=== PATIENT | female | born 1970 | race Caucasian/White ===

== ENCOUNTER → 2018-12-18 | Outpatient (CLI) | payer BC, SELFPAY ==
[2018-12-25 17:58] LABS: HPV Reflexed? NOT INDICATED
== END | disposition home or self-care (01) ==
LOC: LABSPEC 08:48
PROVIDERS: Family Provider Family Medicine; PCP Family Medicine; Visit Provider Obstetrics & Gynecology
DX: Z12.4 Encounter for screening for malignant neoplasm of cervix (principal)
CPT/HCPCS: 87624; 88175; G0145

== ENCOUNTER 2019-02-10 05:21 | Day surgery (SDC) | payer BC, SELFPAY ==
--- NOTE | 2019-02-06 10:46 | EKG12_ITS ---
Test Reason : PRE OP Blood Pressure : / mmHG Vent. Rate : 071 BPM Atrial Rate : 071 BPM P-R Int : 138 ms QRS Dur : 088 ms QT Int : 388 ms P-R-T Axes : 030 -31 006 degrees QTc Int : 421 ms Normal sinus rhythm Left axis deviation Voltage criteria for left ventricular hypertrophy Abnormal ECG No previous ECGs available Confirmed by EDUAR REDMAN, ENRIQUE ([id number]), assistant editor CK CHAVEZ ([id number]) on 02/10/2019 1:28:48 PM Referred By: Rico Sierra Confirmed By:ENRIQUE WITT MD
[2019-02-06 11:00] LABS: Prothrombin Time (Protime)PT. 12.7 SECONDS (11.7-14.9)
[2019-02-06 11:01] LABS: Partial Thromboplast Time 28.4 Seconds (24.1-36.2)
[2019-02-06 11:21] LABS: Anion Gap 6 (5-15); BUN 9 mg/dL (7-18); BUN/Creat Ratio 10.4 RATIO (10-20); Chloride 111 mmol/L (98-107); Creatinine, Serum 0.87 mg/dL (0.55-1.02); EST Glomerular Filtration Rate 73 mL/min (>60); Est Glom Filt Rate - Afr Amer 89 mL/min (>60); Glucose 93 mg/dL (74-106); Potassium 3.7 mmol/L (3.5-5.1); Sodium Level 140 mmol/L (136-145)
[2019-02-06 14:27] LABS: Hematocrit 30.1 % (37-47); Hemoglobin 8.6 g/dL (12.0-15.0); Mean Corp Hgb Conc 28.6 g/dL (32-36); Mean Corpuscular Hgb 21.3 pg (27.0-32.0); Mean Corpuscular Volume 74.5 fL (81-99); Mean Platelet Vol. 9.4 fl (6.2-12.0); Platelet Count 328 K/mm3 (150-450); RBC Distribution Width SD 48.4 fl (35.1-43.9); Red Blood Count 4.04 M/mm3 (4.2-5.4); Scan Indicated on CBC? Y/N NO; White Blood Count 5.5 K/mm3 (4.4-11.0)
--- NOTE | 2019-02-08 19:40 | HP.PCM_ITS ---
History and Physical Date of Admission: 02/10/19 Surgical History and Physical Jacquelyn Duran, a 48 year old female 2 0 0 0 2, presents for RAVH/BSO on February 10, 2019 at 7:30. -- Blood Loss Anemia, Fibroids, Menorrhagia -- Regular heavy menses with the second day being extremely heavy to the point that she often cannot leave the house, and bleeds through everything. Denies any intermenstrual bleeding. Recent Hgb 8.6. Fibroids noted on u/s for many years and bleeding now getting much worse. Recent u/s showed UTERUS: 13.6 X 9.3 X 11.9 CM. MULTIPLE FIBROIDS-LARGEST 3.6 CM. Submucous and multiple fibroids seen in uterus. MEDICATIONS HISTORY: ALLERGIES: No Known Allergies Infections - Chicken pox Illnesses - no serious past illnesses Accidents - None Hospitalizations - see surgery Review of Systems: GENERAL - Denies fever, or chills SKIN - Denies skin changes EYES - Denies visual changes EARS - Denies difficulty hearing NOSE - Denies nasal congestion or bleeding MOUTH - Denies sore throat or difficulty swallowing NECK - Denies pain or swelling RESPIRATORY - Denies shortness of breath or wheezing CARDIOVASCULAR - Denies palpitations or chest pain GASTROINTESTINAL - Denies nausea, vomiting, diarrhea, constipation GENITOURINARY - Denies dysuria, frequency of urination, incontinence of urine MUSCULOSKELETAL - Denies joint or muscle pain NEUROLOGICAL - Denies localized numbness or weakness PSYCHIATRIC - Denies depression or anxiety ENDOCRINE - Denies heat or cold intolerance, weight loss or gain HEMATO-IMMUNOLOGIC - Denies excessive bleeding with cuts SOCIAL HISTORY: Alcohol Use - occasionally Smoking - Never Diet - no special diet Lifestyle - moderate stress lifestyle and Exercise - active work Seat Belt Use - always Employer - [employer] Job Description - [employer] Illicit Drug Use - None Sexual Activity - Spouse-Sig Other Name - Rico Duran Spouse-Sig Other Occupation - [employer] Children Name(s) - Beverley Altamirano Control - Prior Tubal FAMILY HISTORY: MENSTRUAL HISTORY: LMP Known?- DefiniteAmount/Duration - 4-5 DAYS, Regularity - Regular, Frequency - monthly days, LMP - 01/16/19, Age Onset Menarche - 11 PAST PREGNANCIES: Total Pregnancies - 2; Full Term Pregnancies - 2; Premature - 0; Abortions, Induced - 0; Abortions, Spontaneous - 0; Ectopics - 0; Multiple Births - 0; Living Children - 2 SURGICAL HISTORY: 1. 05/26/1998 ; Dr. Guerrier 2. 09/11/2002 and Tubal ; DR. RUBALCAVA 3. 1994 Dx. Lap x 3 over several years ; Dr. Guerrier PHYSICAL EXAM BP- 136/82 Sitting, Right arm, regular cuff Weight- 187.0 lbs Height- 65 inch BMI:31.18 CONSTITUTIONAL - NAD, well nourished, and well developed SKIN - No rash, lesions, or ulcers HEENT - Normocephalic, PERRLA, EOMI NECK - No nodes, no nuchal rigidity and thyroid normal size and texture LYMPH NODES - Palpation of lymph nodes in neck and groins within normal limits LUNGS - CTA x2 without wheezes, crackles or rales CARDIAC - Regular rate and rhythm without rubs, murmurs, or gallops BREAST - No dominant masses, no tenderness, no axillary adenopathy, no nipple discharge, no skin changes ABDOMEN - Without hepatosplenomegaly, distention, masses, rebound, or guarding; normal bowel sounds; no hernias EXTREMITIES - No edema or calf tenderness NEUROLOGICAL - Cranial nerves II-XII grossly intact PSYCHIATRIC - A and O to time, place, person, mood and affect External Genitial Vagina - non-tender without lesions Urethra/Urethral Meatus - non-tender Bladder - non-tender Vagina - vaginal [place] are pink and moist without loss of rugae and no evidence of atropy Cervix - without cervical motion tenderness and has normal size and features without evident lesions Uterus - enlarged uterus 8 wks, wt 125-150 g Adnexa - clear without masses or tenderness ASSESSMENT/PLAN: Blood Loss Anemia, Menorrhagia and Submucous Leiomyoma Of Uterus Discussed options for treatment including expectant management, IUD, Ablation, or proceeding with hysterectomy. Pt desires the hysterectomy as this affords the best possibility of completely fixing the problem. Plan RAVH/BSO. Discussed RBAs and all questions answered. Anesthesia to give 1 unit P-RBC for anemia prior to surgery.
[2019-02-10] VITALS (11 sets, daily range): BP systolic 111–156; BP diastolic 62–83; PULSE 61–80; RESP 16–18; TEMP 36.2–37.1; O2SAT 94–100; BMI 31.6
[2019-02-10 05:48] LABS: Internal QC Validated? YES +Cl - CLEAR BKGD; Pregnancy, Urine Negative Negative
[2019-02-10] MEDS: Lactated Ringers 1,000 ML 100 ML IV (06:43)
--- NOTE | 2019-02-10 07:30 | HYST_PTH ---
PATIENT: WILFRIDO HUDDLESTON [place] [facility] [place][id number] AGE/SX: 48/F ROOM: RE02/10/[address]: Dr. Rico Sierra MD : 1970 BED: DIS: 02/11/2019 SPEC #: [id number] RECD: 02/10/19 13:38 STATUS: RUBY BHARDWAJ #: [id number] MARCELLA: 02/10/19 07:[address]: Rico Sierra DEPT: SURGICAL PATHOLOGY RECD BY: Carlos Miller ENTERED: 02/10/19 13:54 SP TYPE: HYSTERECT OTHR DR: Dr. Dom Cm MD Tissues: Uterus, NOS Procedures: Surgery Specimen Level V HEADER OPERATION: Robotic assisted vaginal hysterectomy, bilateral salpingo-oop PRE-OP DIAGNOSIS: Blood loss anemia, menorrhagia, fibroids TISSUE SUBMITTED: Uterus, cervix, bilateral fallopian tubes, bilateral ovaries MICROSCOPIC DIAGNOSIS Uterus, hysterectomy: Cervix - nabothian cysts and mild chronic inflammation. Endometrium - secretory endometrium. Myometrium - leiomyoma and adenomyosis. Fallopian tube segments with benign peritubular cysts. Ovaries with corpus luteal cysts. DANO:clarisa 02/11/19 MICROSCOPIC DESCRIPTION Slides are reviewed. GROSS DESCRIPTION Received in fixative is one container labeled with the patient's name and designated uterus, cervix, bilateral fallopian tubes and bilateral ovaries. The specimen consists of a hysterectomy specimen in multiple pieces. The largest piece of specimen is consisting of portion of uterus with cervix and attached one fallopian tube and ovary. The detached piece of tissues appears to consist of uterus. The uterus with cervix and detached pieces weigh in aggregate 427 gm. The largest piece of uterus with attached cervix measures 14 x 11 x 8.5 cm. The serosal surface appears unremarkable. The ectocervical is disrupted. No well-defined external os is noted. The specimens cannot be oriented due to disrupted nature of the specimen. A portion of the endocervical canal measures 3 cm in length. The endocervical mucosa is unremarkable. The endometrial cavity measures 6 cm in length and up to 2 cm in diameter. The endometrium is pink red and appears to be disrupted and measures 0.1 cm in thickness. Section of the uterine wall revealed multiple nodule. The largest nodule measures 3.5 cm in greatest dimension. An ill-defined nodule is also noted. Sections of these mass(es) reveal staples whorled cut surfaces without areas of hemorrhage, necrosis or cystic degeneration. The detached pieces of uterus measures in aggregate 9 x 8 x 3.5 cm. The largest piece shows a nodule measuring 5 cm in greatest dimension. Sections of these mass(es) reveal staples whorled cut surfaces without areas of hemorrhage, necrosis or cystic degeneration. The smaller also has 2 smaller nodules. Uninvolved portion of the uterine wall measures up to 4 cm in thickness. The attached fallopian tube measures 7 cm in length and 0.6 cm in diameter. Fimbrial end is identified. Proximal end of the fallopian tube shows a Filshie clip which appears intact. Soft and cystic ovary measures 3.5 x 2 x 1.5 cm. Sections reveal a few cysts filled with clear to hemorrhagic fluid. The largest cyst measures 0.5 cm in greatest dimension. Also present in the container is a detached second fallopian tube measuring in 5 cm in length and 1 cm in diameter. The fimbrial end is identified. The proximal end shows a Filshie clip which appears intact. Sections reveal unremarkable cut surfaces. Also present in the container are multiple detached pieces of pink-red soft tissue which may represent second ovary piece and measure in aggregate 4 x 2 x 0.5 cm. One of the pieces appears to be consistent with corpus luteum. Paint Line Production Supervisor sections are submitted in 14 cassettes as follows: 1&2 - cervix, 3-6 - uterine wall including endometrium, 7 - ill-defined nodular mass; 8 - largest mass present in the detached piece of tissue; 9 - intermediate sized nodular mass; 10 - smaller nodular masses; 11 - attached fallopian tube; 12 - attached ovary; 13&14 - detached pieces of tissue, possible second ovarian tissue, entirely submitted; 15 - second fallopian tube. /MIKE:clarisa 02/10/19 TC:1 CPT: 86167
--- NOTE | 2019-02-10 07:41 | PCM.OPRPT ---
Report of Operation Date of Procedure: 02/10/19 Pre-Operative Diagnosis: Blood Loss Anemia, Menorrhagia, Fibroids Post-Operative Diagnosis: Blood Loss Anemia, Menorrhagia, Fibroids, Adhesions Surgery/Procedure Performed:: Robotic Assisted Vaginal Hysterectomy and Bilateral Salpingo-Oophorectomy, Lysis of Adhesions Description of Surgical Findings:: 13 cm fibroid uterus with normal-appearing fallopian tubes and ovaries; right tube and ovary densely adhered to the right pelvic sidewall. Evidence of endometriosis. legal operations manager: Chau Ivory Type of Anesthesia:: General - Endotracheal Anesthesiologist: Elisa Mei Specimen's removed: Uterus with bilateral fallopian tubes and ovaries Drains: Kirk to straight drain Estimated Blood Loss (mL): 100 cc Fluids Replaced: Crystalloid Description of Procedure: Surgeon: Rico Sierra MD, FACOG Indication: This is a 48 year old patient who has been having problems with blood loss anemia and menorrhagia. Conservative measures have not been helpful. The patient has been counseled regarding the risks, benefits and alternatives of this procedure including the possibility of bleeding, infection, and injury to surrounding structures such as bowel bladder and all questions were answered. She understands that if BSO is needed that she may need to be on HRT for an indefinite period of time. Procedure: Pt taken to the operating room where, after induction of general anesthesia, the patient was prepped and draped in the usual sterile fashion and placed on a non-slip Huggy-u-vac device. Trendelenburg test was satisfactory. Bladder was drained of urine with a Kirk catheter which was left in place. Anterior cervix grasped and cervix was dilated to about 3-4 mm. Uterus sounded to 12 cms. 0-Vicryl suture was placed at the 3:00 and 9:00 position of the cervix. A small Advincula Etl Application Developer Uterine Manipulator was then placed in the uterus and attention was turned to the laparoscopic portion of the procedure. Ropivocaine 0.5% was injected approximately 3-4 cm superior to the umbilicus and an 8 mm robotic camera port was introduced directly with intraperitoneal placement confirmed with CO2 insufflation. 8 mm robotic side ports were introduced under direct visualization approximately 10 cm lateral and 2 cm inferior to the umbilical port. A 5 mm left upper quadrant port was introduced and airseal insufflation with CO2 was started. The above findings were noted. Robot was docked without difficulty and attention turned to the robotic portion of the procedure. Approximately 30 cc of Ropivicaine was used. Bilateral infundibulopelvic ligaments and mesosalpinx were ligated with 35 byrd bipolar coagulation to the level of the round ligament. The posterior aspect of the cervix was identified and then opened for about 1 cm using 25 watt monopolar cautery. Bladder flap was opened and divided to the level of the round ligaments using monopolar cautery. Progressive bites were then ligated on each side of the cervix with 35 byrd bipolar cautery to the uterine arteries. The anterior vaginal mucosa was entered and cervix circumscribed with monopolar cautery. Uterus and attached tubes and ovaries were removed through the vagina after morcellating some of the uterus to allow passage. Some of the right fallopian tube and ovary remained and this was ligated with bipolar cautery and sharp dissection and removed through the vagina. Vaginal cuff was closed first with 0-Vicryl Keesha stitches placed at each angle followed by closure of the mid-cuff with 0-Monocryl V-lock suture in two layers. Pelvis was copiously irrigated with saline and the right ureter was noted to peristalse. Surgicel snow was placed across the vaginal cuff to help with postoperative hemostasis. The vaginal introitus was examined and no disruption was noted. Urine was clear. Robot was undocked and trocars were removed with as much gas as possible. Incisions were closed with 4-0 Monocryl subcuticular sutures and incisions covered with steri-strips. The patient tolerated the procedure well and was taken to the recovery room in satisfactory condition. Sponge, instruments and needle counts were all correct. There were no apparent complications of the surgery. Cefotan 2 gms IV was given prior to the procedure. Specimen to Pathology: Uterus and bilateral fallopian tubes and ovaries Grafts/Implants Used: None - Complications None - Admit VTE Documentation VTE Present on Admission: Yes VTE Mechan Device Prophylaxis: SCD's VTE Pharm Prophylaxis ordered?: Yes
--- NOTE | 2019-02-10 07:49 | DCINST_ITS ---
Discharge Diet: No Restrictions Discharge Activity: Return to Normal Activity, May Not Drive - while taking narcotic pain medications., May Shower May resume sexual activity in: 6-8 weeks Call your doctor if your incision/area has: Continuous Slow Oozing, Sudden Increased Bleeding, Increased Pain/ Swelling, Increased Redness, Foul Smelling Discharge Call your doctor if you observe: Fever of 101 or Higher, Inability to urinate, Inability to have a bowel movement, Using more than one pad per hour Allergies/Adverse Reactions: Allergies No Known Allergies Allergy (Verified 02/03/19 11:04) Medications to take at Discharge Docusate Sodium [Colace] 100 mg PO BID PRN PRN #60 cap 02/10/19 Oxycodone [Oxyir] 5 mg PO Q6H PRN PRN 7 Days #20 tab 02/10/19 The following prescriptions were given: Docusate Sodium [Colace] 100 mg PO BID PRN PRN #60 cap PRN Reason: Constipation Prescription Printed Oxycodone [Oxyir] 5 mg PO Q6H PRN PRN 7 Days #20 tab PRN Reason: Severe Pain (-03/27) Prescription Printed Primary Care Physician: Dom Cm [Primary Care Provider] - Test Results: Test results from this visit will be discussed in further detail at your follow- up appointment, if applicable. Please Follow Up With: Rico Sierra MD When: 2 to 3 weeks
[2019-02-10] MEDS: Ropivacaine 0.5% 30 ML Vial (08:15)
[2019-02-10] MEDS: Ketorolac 30 MG/ML Syringe IV ×3 (11:36→22:25)
[2019-02-10] MEDS: Dextrose 5%-Lactated Ringers 1,000 ML 150 ML IV ×2 (12:31→18:58)
[2019-02-10] MEDS: Acetaminophen 500 MG Tablet 1000 MG PO (13:46)
[2019-02-10] MEDS: Docusate Sodium 100 MG Capsule PO (14:47)
[2019-02-10] MEDS: oxyCODONE 5 MG Tablet PO (14:47)
[2019-02-10] MEDS: 0.9% NaCl Peripheral Flush Adult/Peds IV ×2 (16:26→18:16)
[2019-02-10] MEDS: Enoxaparin 30 MG/0.3 ML Syringe SC (18:16)
[2019-02-10] MEDS: HYDROmorphone 1 MG/ML Syringe 0.5 MG IV (18:16)
[2019-02-11] MEDS: oxyCODONE 5 MG Tablet PO ×2 (01:20→07:55)
[2019-02-11] MEDS: Dextrose 5%-Lactated Ringers 1,000 ML 150 ML IV (01:22)
[2019-02-11 02:00] VITALS: BP 135/68; PULSE 67; RESP 18; TEMP 36.8; O2SAT 96
[2019-02-11] MEDS: Ketorolac 30 MG/ML Syringe IV ×2 (04:47→10:19)
[2019-02-11] MEDS: HYDROmorphone 1 MG/ML Syringe 0.5 MG IV (04:47)
--- NOTE | 2019-02-11 06:52 | PCM.PN.OB ---
Subjective: Patient without complaints. Tolerating diet well. Minimal vaginal bleeding. Pain well controlled. - Physical Exam Vital Signs Temp Pulse Resp BP Pulse Ox 98.2 F 67 18 135/68 H 96 02/11/19 02:00 02/11/19 02:00 02/11/19 02:00 02/11/19 02:00 02/11/19 02:00 Oxygen Delivery Method Room Air Weight: 190 lb 0.615 oz Body Mass Index (BMI) 31.6 Intake and Output for Last 24 Hours 02/09/19 02/10/19 02/11/19 23:59 23:59 23:59 Intake Total 4405.0 / 4405.0 885 / 885 Output Total 2300 / 2300 Balance 2105.0 / 2105.0 885 / 885 Laboratory Tests Past 24 Hrs 02/06/19 02/11/19 02/11/19 10:39 06:10 06:10 WBC Pending RBC Pending Hgb Pending Hct Pending MCV Pending MCH Pending MCHC Pending RDW Std Deviation Pending RDW Coeff of Drake Pending Plt Count Pending Creatinine Pending Est GFR (MDRD) Af Amer Pending Est GFR (MDRD) Non-Af Pending Blood Type O NEGATIVE Antibody Screen NEGATIVE Crossmatch See Detail Wounds are clean, dry, intact. Good urine output. Hemoglobin and creatinine pending. Medical Necessity - Tobacco Use Smoking Status: Never smoker Tobacco Use: Non-smoker Assessment/Plan Doing well postoperative day #1 status post robotic assisted vaginal hysterectomy and bilateral salpingo-nephrectomy. Will release to home later today when able to void on own.
[2019-02-11 06:53] LABS: Hematocrit 25.3 % (37-47); Hemoglobin 7.5 g/dL (12.0-15.0); Mean Corp Hgb Conc 29.6 g/dL (32-36); Mean Corpuscular Hgb 22.5 pg (27.0-32.0); Mean Corpuscular Volume 75.7 fL (81-99); Mean Platelet Vol. 9.7 fl (6.2-12.0); Platelet Count 263 K/mm3 (150-450); RBC Distribution Width CV 18.2 % (11.6-14.6); RBC Distribution Width SD 49.8 fl (35.1-43.9); Red Blood Count 3.34 M/mm3 (4.2-5.4); White Blood Count 9.4 K/mm3 (4.4-11.0)
[2019-02-11 07:00] LABS: Creatinine, Serum 0.95 mg/dL (0.55-1.02); EST Glomerular Filtration Rate 66 mL/min (>60); Est Glom Filt Rate - Afr Amer 80 mL/min (>60); Estimated Creatinine Clearance 63.75 ml/min
[2019-02-11 07:48] VITALS: BP 126/78; PULSE 70; RESP 18; TEMP 37.5; O2SAT 100
[2019-02-11 09:24] VITALS: O2SAT 97
[2019-02-11] MEDS: 0.9% NaCl Peripheral Flush Adult/Peds IV (10:20)
[2019-02-11 14:00] VITALS: BP 135/78; PULSE 68; RESP 18; TEMP 36.7; O2SAT 99
[2019-02-11 14:20] VITALS: BP 135/78; PULSE 68; RESP 18; TEMP 36.7; O2SAT 99
== END 2019-02-11 14:20 | disposition home or self-care (01) ==
LOC: SDC 05:21 → AC 05:22 → MS3 06:27
PROVIDERS: Anesthesiology; Family Provider Family Medicine; PCP Family Medicine; Referring Provider Obstetrics & Gynecology; Visit Provider Obstetrics & Gynecology
PROC: 0UT90ZZ Resection of Uterus, Open Approach (ICD-10-PCS; CPT 58554; principal; 2019-02-10 07:10)
DX: D25.0 Submucous leiomyoma of uterus (principal); N88.8 Other specified noninflammatory disorders of cervix uteri; N83.8 Other noninflammatory disorders of ovary, fallopian tube and broad ligament; N83.12 Corpus luteum cyst of left ovary; N83.11 Corpus luteum cyst of right ovary; D50.0 Iron deficiency anemia secondary to blood loss (chronic)
CPT/HCPCS: 00840; 58554; S2900; 36415; 80048; 81025; 82565; 85027; 85610; 85730; 86850; 86900; 86901; 86920; 88307; 93005; J7120; P9016; A4216; J2405

== ENCOUNTER → 2020-04-23 | Outpatient (CLI) | payer BC, SELFPAY ==
[2019-02-10 12:14] VITALS: BMI 31.6
--- NOTE | 2020-04-23 08:58 | COLBX_PTH ---
PATIENT: WIFLRIDO HUDDLESTON LOC: [facility]#:[id number] AGE/SX: 49/F ROOM: RE04/23/[address]: Dr. Dion Tong MD : 1970 BED: DIS: 04/23/2020 SPEC #: [id number] RECD: 04/23/20 15:03 STATUS: RUBY BHARDWAJ #: [id number] MARCELLA: 04/23/20 08:[address]: Dion Tong DEPT: SURGICAL PATHOLOGY RECD BY: Gloria Dominguez ENTERED: 04/26/20 08:25 SP TYPE: COLON BX JHONY DR: Dr. Dom Cm MD [facility] Tissues: COLON BIOPSY Procedures: Trichrome (control) Special Stain Group II Surgery Specimen Level IV HEADER OPERATION: Colonoscopy with biopsies PRE-OP DIAGNOSIS: Screening / diarrhea TISSUE SUBMITTED: Right and left colon biopsies, rule out microscopic colitis MICROSCOPIC DIAGNOSIS Right and left colon, biopsy: Fragments of colonic mucosa with changes suspicious for microscopic/lymphocytic colitis. See comment. MIKE:ilir 04/27/20 COMMENT Mild increase of intraepithelial lymphocytes is noted. Trichrome stain with matched control is used in the evaluation of the specimen and does not show significant thickening of subepithelial collagen band. Correlation with clinical, endoscopic findings and appropriate follow up are necessary. MICROSCOPIC DESCRIPTION Slides are reviewed. GROSS DESCRIPTION Received in fixative is one container labeled with the patient's name and designated right and left colon biopsy. The specimen consists of multiple irregular fragments of light staples soft tissue that in aggregate measure 1.5 x 0.7 x 0.1 cm. The specimen is totally submitted in one cassette. / MIKE:ilir 04/26/20 TC:3 CPT: 12095, 48612
== END | disposition home or self-care (01) ==
LOC: LABSPEC 15:21
PROVIDERS: PCP Family Medicine; Referring Provider Internal Medicine Gastroenterology; Visit Provider Internal Medicine Gastroenterology
DX: Z13.9 Encounter for screening, unspecified (principal); R19.7 Diarrhea, unspecified
CPT/HCPCS: 88305; 88313

== ENCOUNTER → 2021-02-01 14:51 | Outpatient (CLI) | payer BC, SELFPAY ==
[2021-02-01 05:36] VITALS: BMI 31.6
[2021-02-01 15:05] LABS: Absolute Lymphocyte Count 2.79 X10^3/uL (0.83-4.51); Basophil# 0.11 X10^3/uL; Basophil% 1.2 % (0-1); Eosinophil# 0.44 X10^3/uL; Eosinophils% 4.9 % (0-5); Hematocrit 44.2 % (37-47); Hemoglobin 14.6 g/dL (12.0-15.0); Lymphocyte # 2.79 X10^3/ul (0.83-4.51); Lymphocyte % 30.8 % (19-41); Mean Corpuscular Volume 93.8 fL (81-99); Mean Platelet Vol. 9.1 fl (6.2-12.0); Monocyte# 0.66 X10^3/uL; Monocyte% 7.3 % (0-10); NRBC Flagged by Analyzer 0 % (0-5); Neutrophil # 5.03 X10^3/uL (2.7-7.7); Neutrophil % 55.6 % (47-70); Platelet Count 360 K/mm3 (150-450); RBC Distribution Width CV 11.9 % (11.6-14.6); Red Blood Count 4.71 M/mm3 (4.2-5.4); White Blood Count 9.1 K/mm3 (4.4-11.0)
[2021-02-01 15:21] LABS: ALB/GLOB Ratio 1.1 RATIO (0.9-2.4); AST(SGOT) 25 U/L (15-37); Alanine Aminotransfer ALT/SGPT 52 U/L (13-56); Albumin, Serum 4.7 g/dL (3.2-5.0); Alkaline Phosphatase 92 U/L (45-117); Anion Gap 7 (5-15); BUN 15 mg/dL (7-18); BUN/Creat Ratio 17.6 RATIO (10-20); Calcium,Total 9.9 mg/dL (8.5-10.1); Chloride 105 mmol/L (98-107); Creatinine, Serum 0.85 mg/dL (0.55-1.02); EST Glomerular Filtration Rate 75 mL/min (>60); Est Glom Filt Rate - Afr Amer 90 mL/min (>60); Globulin 4.1 g/dL (2.2-4.2); Glucose 98 mg/dL (74-106); Lipase 219 U/L (73-393); Potassium 3.7 mmol/L (3.5-5.1); Protein, Total 8.8 g/dL (6.4-8.2); Sodium Level 138 mmol/L (136-145)
== END ==
PROVIDERS: PCP Family Medicine; Referring Provider Surgery; Visit Provider Surgery
DX: K80.20 Calculus of gallbladder without cholecystitis without obstruction (principal); R10.9 Unspecified abdominal pain
CPT/HCPCS: 36415; 80053; 83690; 85025

== ENCOUNTER 2021-02-07 07:40 | Day surgery (SDC) | payer BC, SELFPAY ==
[2021-02-01 15:44] VITALS: BMI 32.8
[2021-02-07] VITALS (10 sets, daily range): BP systolic 103–149; BP diastolic 69–85; PULSE 50–80; RESP 16; TEMP 36.1–37; O2SAT 91–98; BMI 32.9
--- NOTE | 2021-02-07 07:55 | EKG12_ITS ---
Test Reason : PRE-OP Blood Pressure : / mmHG Vent. Rate : 063 BPM Atrial Rate : 063 BPM P-R Int : 144 ms QRS Dur : 088 ms QT Int : 414 ms P-R-T Axes : 015 -34 004 degrees QTc Int : 423 ms Normal sinus rhythm Left axis deviation Abnormal ECG When compared with ECG of 06-FEB-2019 10:51, No significant change was found Confirmed by PEGGY REDMAN, ADAM ([id number]), news editor LYNDSEY GOLDSMITH ([id number]) on 02/11/2021 9:59:41 AM Referred By: AILYN Confirmed By:JOURDAN WOODS MD
[2021-02-07] MEDS: Lactated Ringers 1,000 ML 100 ML IV ×2 (08:25→11:01)
--- NOTE | 2021-02-07 09:29 | PCM.HP.BLA ---
History and Physical Date of Admission: 02/07/21 Intake Visit Reasons: GALLSTONES Chief Complaint: gallstones, abd pain Etl Analyst Developer Required: No Is patient in pain?: Yes (RUQ into right upper back ) Pain scale (1-10): 5 Allergies No Known Allergies Allergy (Verified 02/01/21 15:49) Medications docusate sodium 100 mg PO BID PRN PRN #60 cap 02/10/19 [Rx] lisinopril 10 mg tablet 10 mg PO DAILY 02/01/21 [History Confirmed 02/01/21] milk thistle 500 mg capsule 500 mg PO DAILY 02/01/21 [History Confirmed 02/01/21] multivitamin 1 tab PO DAILY 02/01/21 [History Confirmed 02/01/21] Is last menstrual period known: No Post menopausal: Yes Patient : No PFSH Medical History (Updated 02/01/21 @ 16:[address] Jayden Christiansen MD) Gallstone GERD (gastroesophageal reflux disease) HTN (hypertension) Surgical History (Updated 02/01/21 @ 15:44 by Christina Ruelas) History of 2 sections History of colonoscopy History of hysterectomy History of laparoscopy Family History (Updated 02/01/21 @ 15:44 by Christina Ruelas) Sister Thyroid disorder Mother Cancer lung Social History Smoking Status: Never smoker HPI HPI HPI: WILFRIDO HUDDLESTON, is a 50 F who presents to the office today for surgical consultation regarding abdominal pain. The patient is referred by Dr. Benny Cm and a written copy of my surgical consult and recommendations will return to him. Her most recent evaluation at [facility] in [facility] on January 20, 2021 demonstrated the common bile duct 8.4 mm diameter. Stones were seen in the neck of the gallbladder. Consider MRCP. The patient states that she has been having problems with right upper quadrant pain for at least 9 months. No fever chills or sweats. No light-colored stools or dark-colored urine. It is of note that she did have COVID-06 July 2020. Cough fever sweats. She has not received the vaccination. She has not had a long-term consequence. Previous abdominal surgery includes x2 and 3 laparoscopies for endometriosis and a vaginal hysterectomy. She does have port sites in the left upper quadrant ROS General General: No weight change, appetite, fatigue, colon cancer, breast cancer or weakness HEENT HEENT: No difficulty swallowing, eye injury, eye surgery, swollen glands or hoarseness Endo Endocrine: No thyroid disease, diabetes mellitus, thyroid cancer, Hair loss, heat intolerance or cold intolerance Musc Musculoskeletal: No back problems, arthritis, rheumatoid arthritis, gout or joint pain Cardio Cardiovascular: Yes high blood pressure; No murmur, pacemaker, heart disease, atrial fibrillation, heart attack, heart stent, palpitations, shortness of breat with exertion or chest pain Psych Psychiatric: No depression, anxiety or hearing voices Resp Respiratory: No shortness of breath, No sleep apnea, No cough, No COPD, No asthma, No emphysema and No wheezing Gastro Gastrointestinal: Yes abdominal pain, Yes nausea or vomiting, Yes diarrhea, No constipation, No blood in stool, Yes acid reflux, No hemorrhoids, No ulcers, Yes gallbladder problem and No black,tarry stools Ian Hematologic: No blood thinners, No blood disorders, No bleeding, No anemia and No blood clots Neuro Neurologic: No weakness Exam Const General: cooperative, healthy appearing and comfortable Nutritional Appearance: overweight Orientation: alert and awake [facility] Head: normal to inspection Chest Chest palpation & inspection: normal inspection of the chest Resp Effort & Inspection: normal respiratory effort Auscultation: clear to auscultation bilaterally Cardio Rate: regular rate Rhythm: regular rhythm GI Palpation: soft and no hepatosplenomegaly Other: Slight tenderness right upper quadrant Musc Cervical Spine: normal cervical lordosis Skin General: no rashes or lesions noted Neuro General: patient alert and patient awake Extrem General: no calf tenderness Psych Attitude: cooperative Judgment: judgment good COVID (Procedure Consent) Procedure Criteria Procedure Criteria: Yes Elective The surgeon/proceduralist and patient have discussed in detail the risk of exposure to and/or potential harm posed by the COVID-19 virus with having a surgery/procedure at this time versus the risk of delaying the surgery/procedure. It is not possible to know either the risk of delaying the surgery or procedure or chance of getting an infection with perfect accuracy, but a joint decision was made between the patient and the surgeon/proceduralist to proceed at this time with the scheduled surgery/procedure as indicated on the consent form. Assessment and Plan Assessment and Plan (1) Cholelithiasis with chronic cholecystitis: Status: Chronic Qualifiers: Cholelithiasis location: gallbladder Biliary obstruction: without biliary obstruction Qualified Code(s): K80.10 - Calculus of gallbladder with chronic cholecystitis without obstruction Plan - Dr. Jayden Christiansen MD: 50-year-old female. Chronic cholecystitis cholelithiasis with stones in the neck of the gallbladder. Her common bile duct is 8 mm but no stones identified. She had laboratory drawn today including a CMP and a CBC all of it normal. There is no elevation of liver function test. She is not had symptoms that correlate with biliary obstruction. I propose for her a laparoscopic cholecystectomy with cholangiography. I have discussed the technique, benefit, risk, alternatives. I have discussed the potential need for laparoscopic common bile duct exploration. She has had an opportunity to ask and have questions answered. We will schedule and expedite her care. I very much appreciate the kind opportunity of assisting with her surgical management. Copy: Dr. Benny Christiansen M.D., F.A.C.S. Plan Details Other Orders: Orders: Comprehensive Metabolic Profil Today K80.20 Lipase Today K80.20, R10.9 CBC W/Diff, Automated Today K80.20 Coding Level of Care Code 20332 Diagnoses Cholelithiasis with chronic cholecystitis K80.10 Cholelithiasis location: gallbladder Biliary obstruction: without biliary obstruction I have re-examined the patient. There are no clinical changes since date of exam. Jayden Christiansen M.D., F.A.C.S.
--- NOTE | 2021-02-07 09:30 | GALL_PTH ---
PATIENT: WILFRIDO HUDDLESTON LOC: [facility] U#:[id number] AGE/SX: 50/F ROOM: RE02/07/[address]: Dr. Jayden Christiansen MD : 1970 BED: DIS: 02/07/2021 SPEC #: [id number] RECD: 02/07/21 12:56 STATUS: RUBY BHARDWAJ #: [id number] MARCELLA: 02/07/21 09:[address]: Jayden Christiansen DEPT: SURGICAL PATHOLOGY RECD BY: Gloria Dominguez ENTERED: 02/07/21 13:27 SP TYPE: SUGEY BOOKER DR: Dr. Dom Cm MD Tissues: Gallbladder, NOS Procedures: Surgery Specimen Level III HEADER OPERATION: Laparoscopic cholecystectomy with IOC PRE-OP DIAGNOSIS: Cholelithiasis with chronic cholecystitis TISSUE SUBMITTED: Gallbladder MICROSCOPIC DIAGNOSIS Gallbladder, cholecystectomy: Mild chronic cholecystitis, cholelithiasis and cholesterolosis. SJ:ilir 02/08/2021 MICROSCOPIC DESCRIPTION Slides are reviewed. GROSS DESCRIPTION Received is one container labeled with the patient's name and designated gallbladder. The specimen consists of a gallbladder measuring 8 cm in length and up to 4 cm in diameter. The external surface is pink-staples, smooth and glistening for the most part. Focally it is granular, hemorrhagic and contains cautery artifact. The gallbladder contains green-yellow to hemorrhagic bile and two mulberry, brownish-black stones measuring 0.5 and 0.8 cm in greatest dimension. The mucosa is bile-stained and without any mass lesions. The gallbladder wall measures 0.2 cm in thickness. The mucosa also shows several yellowish streaks consistent with cholesterolosis. Telegraphic Typewriter Mechanic sections from the gallbladder and the cystic duct are submitted in one cassette. / MIKE:ilir 02/07/21 TC:3 CPT: 81516
--- NOTE | 2021-02-07 09:30 | EX.PCM.DISCH ---
Discharge Instructions Procedure General Surgery Diet Discharge Diet: Light diet - advance as tolerated (if you have questions about your diet instructions, please talk to you doctor.) Activity Discharge Activity: May Not Drive (for 3-5 days or while taking narcotic pain medicine.) May shower in (days): 1 Lifting Restrictions: 10 pounds Dressing / Incision Call your doctor if your incision/area has: Continuous Slow Oozing, Sudden Increased Bleeding, Increased Pain/ Swelling, Increased Redness and Foul Smelling Discharge Call your doctor if you observe: Fever of 101 or Higher Suture Line Care: Avoid Pulling/Pushing and Avoid Pinching/Bending Additional Dressing/Incision Instructions:: Change or remove dressing in 4 days. Leave steri-strips in place for 1 week. Follow Up Care Please Follow Up With: Jayden Christiansen MD When: Call [phone] to make an appointment to be seen in about 10 days. Test Results: Test results from this visit will be discussed in further detail at your follow-up appointment, if applicable. Discharge Plan Admission Attending Provider: Jayden Christiansen Primary Care Provider: Dom Cm Discharge Orders/Prescriptions Prescriptions: No Action lisinopril 10 mg tablet 10 mg PO DAILY RF: 0 multivitamin Tablet 1 tab PO DAILY RF: 0 milk thistle 500 mg capsule 500 mg PO DAILY RF: 0
[2021-02-07] MEDS: Cefazolin 2 GM in 0.9% Normal Saline 100 ML IV (09:32)
[2021-02-07] MEDS: Bupivacaine Mpf 0.5% 30 ML VIAL (09:55)
--- NOTE | 2021-02-07 10:00 | RAD_ITS ---
STUDY: INTRAOPERATIVE CHOLANGIOGRAM. REASON FOR EXAM: Female, 50 years old. Gallstones. FLUOROSCOPY TIME (if supplied): ( 35.8 seconds ) minutes/seconds. A cine loop of 30 images were submitted. TECHNIQUE: Intraoperative Cholangiogram was performed by the surgeon. Imaging was submitted. COMPARISON: None. FINDINGS: The common bile duct is opacified. No intraluminal filling defect is seen. There is free flow of contrast into the duodenum. RAD/Cholangiogram/ O R,Initial IMPRESSION: Unremarkable intraoperative cholangiogram. Electronically Signed: Nile Herrera MD at 13:39 EDT , Service support ,
--- NOTE | 2021-02-07 10:39 | PCM.OPRPT ---
Problems Associated Problem List Diagnoses (1) Cholelithiasis with chronic cholecystitis: Report of Operation Date of Procedure: 02/07/21 Pre-Operative Diagnosis: Chronic cholecystitis cholelithiasis Post-Operative Diagnosis: Same Surgery/Procedure Performed:: Laparoscopic cholecystectomy with cholangiograms Description of Surgical Findings:: Timeout and informed consent was obtained. 50-year-old female was taken to the operating placed upon the table underwent general endotracheal intubation and anesthesia. Ancef 2 g were given intravenously. The abdomen sterilely prepped and draped. 0.5% Marcaine was used as a local anesthetic. Skin sites were preanesthetized. Throughout the procedure a total of 30 cc was used. In the right mid upper quadrant local was instilled the 5 mm incision was created then using a 0 degree 5 mm scope and a 5 mm trocar Visiport technology was used to gain access. The abdomen was insufflated with CO2 to a pressure of 10 mmHg pressure. Inspection of the abdomen failed to reveal any abdominal adhesions. A vertical incision was made at the inferior portion of the umbilicus and a 10 mm trocar inserted. Additional 5 mm trochars were placed in the epigastrium and right lateral upper quadrant. The patient was placed in reverse Trendelenburg position. The gallbladder was distracted. Immediately the enlarged common bile duct was identified. Blunt dissection was instituted at the infundibulum until clearly the cystic duct cystic artery and critical view was achieved. A Hem-o-braydon clip was placed on the cystic duct incision in the cystic duct and through a 14-gauge Angiocath cholangiogram catheter was inserted. Fluoroscopically controlled cholangiograms were obtained demonstrating although it was on the large duct there appeared to be free flow into the small bowel with no obstruction. It is of note that prior to the cholangiogram the patient did receive a milligram of glucagon IV. The cholangiogram catheter was removed. 2 Hem-o-braydon clips were placed on the cystic duct stump prior to transecting it. The cystic artery was clipped twice proximally and once distally prior to transecting it. The gallbladder was dissected free from the liver bed using electrocautery. Complete hemostasis was intact. Fibular was placed in the liver bed. Excess fluid nerves aspirated free. The gallbladder was exited through the umbilical site. Using a 0 Vicryl and a grainy needle [id number] suture was performed at the umbilical area securing the fascia. The abdomen was allowed to deflate of the CO2. Skin edges approximated opted 4-0 Monocryl subdermal stitches. Steri-Strips Telfa OpSite dressings applied. Sponge and instrument and needle counts were reported the surgeon to be correct. Specimen gallbladder. Drains none. Blood loss minimal. The patient was taken to the recovery room in satisfactory condition without apparent complication Jayden Christiansen M.D., F.A.C.S. Surgeon: Jayden Christiansen Type of Anesthesia: General and Local Anesthesiologist: Kevin Baum
[2021-02-07] MEDS: Ketorolac 30 MG/ML Syringe IV (12:20)
[2021-02-07] MEDS: HYDROcodone Bitartrate/Apap 5/325 Tablet PO (13:11)
--- NOTE | 2021-02-07 14:07 | SUR.PHASEII ---
pt. ready for dischage umbilicus dressing changed for moderate amount of serous sang drainage, no oozing noted when dressing off and steri strips intact.
== END 2021-02-07 14:09 ==
LOC: SDC 07:42 → AC 07:44
PROVIDERS: PCP Family Medicine; Visit Provider Surgery
PROC: (CPT 47610; principal; 2021-02-07 09:10)
DX: K80.10 Calculus of gallbladder with chronic cholecystitis without obstruction (principal); Z20.822 Contact with and (suspected) exposure to COVID-19; I10 Essential (primary) hypertension; K21.9 Gastro-esophageal reflux disease without esophagitis; Z78.0 Asymptomatic menopausal state; Z79.899 Other long term (current) drug therapy; Z86.16 Personal history of COVID-19
CPT/HCPCS: 47563; 74300; 76000; 87426; 88304; 93005; J7120; J1610; J2405

== ENCOUNTER → 2024-02-15 | Outpatient (CLI) | payer BC, SELFPAY ==
--- NOTE | 2024-02-15 09:17 | BI_ITS ---
MAMMOGRAPHY - UNILATERAL DIAGNOSTIC: RIGHT BREAST REASON FOR EXAM: Female, 53 years old. Abnormal screening mammogram. PERTINENT HISTORY: Grandmother with breast cancer. TECHNIQUE: Magnification spot views were obtained.. CAD: Full Field Digital Mammography with Computer Added Detection was performed. COMPARISON: Comparison is made with prior outside examination dated November 25, 2022 FINDINGS: Breast Composition: Persistent amorphous calcification seen in the upper lateral aspect of the right breast. Biopsy recommended. There are no dominant masses or suspicious calcifications. No other significant abnormalities are identified. BI/DIAG MAMM W/CAD, UNILAT IMPRESSION: Persistent amorphous calcification seen in the upper lateral aspect of the right breast as described. Biopsy recommended. ASSESSMENT CATEGORY: BIRADS Category 4: Suspicious - Biopsy Should Be Considered. A letter regarding these results will be sent to the patient by the facility within 30 days. Approximately 10% of breast cancers are not detected by mammography. A normal mammogram should not delay biopsy of a clinically suspicious abnormality. Electronically Signed: Nile Herrera MD at 9:57 EDT ,
== END | disposition home or self-care (01) ==
LOC: OPBI 09:16
PROVIDERS: PCP Family Medicine; Referring Provider Nurse Practitioner Family; Visit Provider Nurse Practitioner Family
DX: R92.1 Mammographic calcification found on diagnostic imaging of breast (principal)
CPT/HCPCS: 77065

== ENCOUNTER → 2024-02-29 | Outpatient (CLI) | payer BC, SELFPAY ==
--- NOTE | 2024-02-29 11:35 | BRBX_PTH ---
PATIENT: WILFRIDO HUDDLESTON LOC: [facility] U#:[id number] AGE/SX: 53/F ROOM: RE02/29/[address]: Dr. Don Caldwell MD : 1970 BED: DIS: 02/29/2024 SPEC #: [id number] RECD: 02/29/24 12:06 STATUS: RUBY BENTON #: [id number] MARCELLA: 02/29/24 11:[address]: Don Caldwell DEPT: SURGICAL PATHOLOGY RECD BY: Deepa Infante ENTERED: 02/29/24 13:11 SP TYPE: BREAST BX OTHR DR: Dr. Dom Cm MD Tissues: Right breast, NOS Procedures: Surgery Specimen Level IV HEADER OPERATION: Right breast stereotactic biopsy PRE-OP DIAGNOSIS: Amorphous calcification in upper lateral aspect of right breast TISSUE SUBMITTED: Right breast core tissue Ischemic Time: 1 minute Fixation Time: 57 hours MICROSCOPIC DIAGNOSIS Right breast, stereotactic core biopsy: Benign fibrovascular and fibrofatty tissue. A fragment of skin with no pathologic change. Organizing blood clots. No evidence of malignancy. DANO/ 03/03/2024 MICROSCOPIC DESCRIPTION Slides are reviewed. GROSS DESCRIPTION Received is one container labeled with the patient's name and not further designated. The specimen consists of multiple irregular fragments of staples-yellow fibroadipose tissue mixed with blood clot that in aggregate measure 3.0 x 2.5 x 0.3 cm. The specimen is totally submitted in two cassettes. 02/29/2024 TC:5 CPT:22401
--- NOTE | 2024-02-29 14:25 | PCM.OPRPT ---
Report of Operation Date of Procedure: 02/29/24 Pre-Operative Diagnosis: Microcalcifications of the right breast Post-Operative Diagnosis: Same Surgery/Procedure Performed:: Stereotactic guided core needle biopsy of the right breast Type of Anesthesia: Local Description of Procedure: The patient was placed in the stereotactic table and the right breast was compressed. Stereotactic views were obtained. The microcalcifications were localized and programmed in the computer. Next the skin was prepped and then injected with local anesthetic. Biopsy needle was placed into the breast and several biopsies were performed. The specimen was x-rayed and showed the microcalcifications. Next a small clip was placed into the area and then the needle was removed. Follow-up x-ray showed that the clip was in the biopsy cavity. Steri-Strip and bandage were placed over the incision and patient was discharged home in stable condition and tolerated the procedure well.
== END | disposition home or self-care (01) ==
LOC: OPUS 11:07 → BIRAD 11:13
PROVIDERS: PCP Family Medicine; Referring Provider Surgery; Visit Provider Surgery
DX: R92.0 Mammographic microcalcification found on diagnostic imaging of breast (principal); R92.8 Other abnormal and inconclusive findings on diagnostic imaging of breast
CPT/HCPCS: 19081; 88305; J7050

== ENCOUNTER → 2025-03-23 | Outpatient (CLI) | payer BC, SELFPAY ==
--- NOTE | 2025-03-23 09:00 | BI_ITS ---
EXAM: DIAG MAMM W/CAD, UNILAT N/A CLINICAL HISTORY: F, Age 54 y/o , CALCIFICATIONS UPPER OUTER RIGHT BREAST TECHNIQUE: Procedure Code: [id number] Modality: MG Procedure: DIAG MAMM W/CAD, UNILAT. COMPARISON: Prior exam(s) dated 02/13/2025, 02/15/2024, and 01/19/2024. FINDINGS: TISSUE DENSITY: There are scattered areas of fibroglandular density. Bilateral Breast Mammographic Findings: There is a cluster of amorphous, round and punctate calcifications in the superior outer aspect of the right breast. These calcifications have somewhat of the linear distribution. They are best appreciated on the magnification views. They are seen inferior medial and anterior to a radiopaque clip that was deployed to awilda a post biopsy site. That biopsy was benign. Benign round microcalcifications are seen elsewhere in the breast. BI/DIAG MAMM W/CAD, UNILAT IMPRESSION: There is a suspicious cluster of calcifications in the superior outer aspect of the right breast. The calcifications warrant biopsy in order to completely exclude a malignancy. OVERALL FINAL ASSESSMENT BI-RADS 4: SUSPICIOUS RECOMMENDATION: Biopsy Recommended Additional Recommendation none A letter with findings and recommendations will be mailed to the patient. Reading Location: [id number]
--- NOTE | 2025-03-23 09:00 | BI_ITS ---
EXAM: DIAG MAMM W/CAD, UNILAT N/A CLINICAL HISTORY: F, Age 54 y/o , CALCIFICATIONS UPPER OUTER RIGHT BREAST TECHNIQUE: Procedure Code: [id number] Modality: MG Procedure: DIAG MAMM W/CAD, UNILAT. COMPARISON: Prior exam(s) dated 02/13/2025, 02/15/2024, and 01/19/2024. FINDINGS: TISSUE DENSITY: There are scattered areas of fibroglandular density. Bilateral Breast Mammographic Findings: There is a cluster of amorphous, round and punctate calcifications in the superior outer aspect of the right breast. These calcifications have somewhat of the linear distribution. They are best appreciated on the magnification views. They are seen inferior medial and anterior to a radiopaque clip that was deployed to awilda a post biopsy site. That biopsy was benign. Benign round microcalcifications are seen elsewhere in the breast. BI/DIAG MAMM W/CAD, UNILAT IMPRESSION: There is a suspicious cluster of calcifications in the superior outer aspect of the right breast. The calcifications warrant biopsy in order to completely exclude a malignancy. OVERALL FINAL ASSESSMENT BI-RADS 4: SUSPICIOUS RECOMMENDATION: Biopsy Recommended Additional Recommendation none A letter with findings and recommendations will be mailed to the patient. Reading Location: [id number]
--- OUTSIDE RECORDS SUMMARY | 2025-03-23 09:27 | XMS RPT_ITS | CCD ---
Author Organization [facility] Inform ion [facility] Care Team Providers Care Project Director Name Role Phone DR PRATIK REECE Consulting Unavailable CHELSEA HERNANDEZ Attending Unavailable CHELSEA HERNANDEZ Primary Care Unavailable CHELSEA HERNANDEZ Admitting Unavailable PROVIDER, UNKNOWN Consulting Unavailable PROVIDER, UNKNOWN Consulting Unavailable PROVIDER, UNKNOWN Consulting Unavailable Pratik Reece Primary Care Provider Pratik Reece Primary Care Provider [phone] PRATIK REECE Primary Care Unavaila CM Espitia Attending Unavailable NACHO GUERRERO Attending Unavailable CM BAILON Attending Unavailable Pratik Reece MD Primary Care Provider Pratik Reece MD Primary Care Provider AIMEE ZENDEJAS Referring Unavailable PRATIK REECE Primary Care Unavaila PRATIK Mustafa Referring Unavaila PRATIK Mustafa Primary Care Unavaila Pratik Mustafa [facility] Care Unavailable Aimee Zendejas Referring Unavailable Aimee Zendejas Attending Unavailable Medications Current Medications Medication Drug Class(es) Dates Sig (Normalized) Sig (Original) calcium carbonate 600 mg / cholecalciferol 125 unt oral tablet (7 sources) Vitamin D Start: 08-20-2007 calcium carbonate/vitamin d3(CALCIUM 600 + D 600 MG-125 UNIT TAB) Take one(1) tablet twice daily. 0 08/20/2007 Active Comment on above: Take one(1) tablet t wice daily. DAILY MULTIVITAMIN TAB (7 sources) Start: 06-27-2006 DAILY MULTIVITAMIN TAB Take one(1) tablet daily. 0 06/27/2006 Active Comment on above: Take one(1) tablet d aily. lisinopril 10 mg oral tablet (5 sources) Angiotensin Converting Enzyme Inhibitor Start: 11-14-2022 take 1 tablet by mouth once daily lisinopril (ZESTRIL) 10 mg tablet Take 10 mg by mouth once daily. 11/14/2022 Active Comment on above: Take 10 mg by mouth once daily. Problems Active Problems Problem Classification Problem Date Documented Date Episodic/Chronic Disorders of lipid metabolism (8 sources) Hypercholesterolemia ; Translations: [Pure hypercholesterolemia , unspecified] Onset: 02-18-2013 02-18-2013 Chronic Essential hypertension (8 sources) Benign essential hypertension; Translations: [Essential (primary) hypertension] Onset: 08-16-2015 08-16-2015 Chronic Menstrual disorders (7 sources) Menorrhagia; Translations: [Excessive and frequent menstruation with regular cycle] Onset: 08-16-2016 08-16-2016 Chronic Other liver diseases (1 source) Fatty (change of) liver, not elsewhere classified; 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] Onset: 08-30-2024 Chronic Other screening for suspected conditions (not mental disorders or infectious disease) (6 sources) Patient encounter status; Translations: [Encounter for screening mammogram for malignant neoplasm of breast] Onset: 12-19-2011 Episodic Unclassified (4 sources) Abnormal cytology findings; Translations: [Abnormal Pap smear] Onset: 12-19-2011 12-19-2011 Past or Other Problems Problem Classification Problem Date Documented Da te Episodic/Chronic Benign neoplasm of uterus (7 sources) Intramural leiomyoma of uterus; Translations: [Intramural leiomyoma of uterus] Onset: 08-16-2016 08-16-2016 Episodic Melanomas of skin (7 sources) History of malignant melanoma of the skin; Translations: [Personal history of malignant melanoma of skin] Onset: 02-12-2007 02-12-2007 Episodic Unclassified (1 source) Z00.00 Onset: 10-27-2022 Results Test Name Value Interpretation Reference Range Facil ity HENRI SCREENING W Vanita 02-13 HENRI SCREENING W BETZY * * *Final Report* * * DATE OF EXAM: Feb 13 2025 8:02AM UDW [id number] - HENRI SCREENING W BETZY / PROCEDURE REASON: SCREENING * * * * Physician Interpretation * * * * [place] [address] #[id number] - [facility] SCREENING W BETZY HISTORY: 54 year-old patient presents for screening. No current complaints. Patient states no personal history of breast cancer. The patient has a family history of breast cancer. COMPARISON STUDIES: The present examination has been compared to prior imaging studies dated 12/11/2017 (mammogram), 01/27/2019 (mammogram), 03/25/2020 (mammogram), 11/25/2022 (mammogram) and 01/19/2024 (mammogram). MAMMOGRAM TECHNIQUE: The study was acquired using full field digital technology and interpreted from soft copy. Digital Breast Tomosynthesis (DBT) images were obtained and used to assist in the interpretation of this examination. MAMMOGRAM FINDINGS: There are scattered areas of fibroglandular density. There are calcifications in the upper outer quadrant of the right breast. In the left breast, no suspicious masses, calcifications or other abnormalities are seen. IMPRESSION: The calcifications in the upper outer quadrant of the right breast require additional evaluation. Diagnostic mammogram is recommended. Note that these were called back last year and a biopsy clip is now present which is displaced from the site of calcifications. Biopsy images and magnification views are not available for my review to determine if the calcifications were adequately sampled, therefore diagnostic imaging with magnification views is recommended. Comparison to stereotactic biopsy images and any outside diagnostic mammogram images is also recommended. BI-RADS Category 0: Incomplete: Needs Additional Imaging Evaluation RISK: Based on the Tyrer-Cuzick (TC) risk assessment model, this patient has a 12.7% lifetime risk of developing breast cancer, meaning they are at average risk for developing breast cancer. However, this is only an estimate based on available history provided on the patient's questionnaire. We encourage all patients to talk with their providers about these results, further recommendations for managing breast health, and appropriate supplemental screening options if the patient has dense breast tissue. REF#[id number]. Interpreting Radiologist: Khloe Diaz M.D. Electronically signed on: 02/13/2025 Nuisance Wildlife Specialist: RACQUEL Transcribe Date/Time: Feb 13 2025 7:48A Dictated by : KHLOE DIAZ MD This examination was interpreted and the report reviewed and electronically signed by: KHLOE DIAZ MD on Feb 13 2025 11:38AM EST [id number] N [facility] CBC W Auto Differential pane l (Bld)on 08-30-2024 Basophils (Bld) [#/Vol] 0.10 10*3/uL Normal <0.11 [facility] Comment on above: Order Comment: Speci men Type: BLOOD SPECIMEN Ordering Facility: PRATIK REECE M.D. (M4) Address: [address] [place] [address] Performed By: #### 5 7021-8 #### [facility] CLIA [id number] [address] [place] [address] [place] Basophils/100 WBC (Bld) 2.0 % [facility] Comment on above: Order Comment: Speci men Type: BLOOD SPECIMEN Ordering Facility: PRATIK REECE M.D. ([facility] Address: [address] [place] [address] Performed By: #### 5 7021-8 #### [facility] CLIA [id number] [address] [place] [address] [place] Differential cell count method Nom (Bld) Auto [facility] Comment on above: Order Comment: Speci men Type: BLOOD SPECIMEN Ordering Facility: PRATIK REECE M.D. (M4) Address: [address] [place] [address] Performed By: #### 5 7021-8 #### [facility] CLIA [id number] [address] [place] [address] [place] Eosinophils (Bld) [#/Vol] 0.25 10*3/uL Normal <0.46 [facility] Comment on above: Order Comment: Speci men Type: BLOOD SPECIMEN Ordering Facility: PRATIK REECE M.D. (M4) Address: [address] [place] [address] Performed By: #### 5 7021-8 #### [facility] CLIA [id number] [address] [place] [address] [place] Eosinophils/100 WBC (Bld) 5.1 % [facility] Comment on above: Order Comment: Speci men Type: BLOOD SPECIMEN Ordering Facility: PRATKI REECE M.D. ([id number]) Address: [address] [place] [address] Performed By: #### 5 7021-8 #### [facility] CLIA [id number] [address] [place] [address] [place] Erythrocyte distribution width (RBC) [Ratio] 11.6 % Normal 11.5-15.0 [facility] Comment on above: Order Comment: Speci men Type: BLOOD SPECIMEN Ordering Facility: PRATIK REECE M.D. ([id number]) Address: [address] [place] [address] Performed By: #### 5 7021-8 #### [facility] CLIA [id number] [address] [place] [address] [place] Hematocrit (Bld) [Volume fraction] 43.1 % Normal 36.0-46.0 [facility] Comment on above: Order Comment: Speci men Type: BLOOD SPECIMEN Ordering Facility: PRATIK REECE M.D. ([id number]) Address: [address] [place] [address] Performed By: #### 5 7021-8 #### [facility] CLIA [id number] [address] [place] [address] [place] Hemoglobin (Bld) [Mass/Vol] 14.4 g/dL Normal 11.5-15.5 [facility] Comment on above: Order Comment: Speci men Type: BLOOD SPECIMEN Ordering Facility: PRATIK REECE M.D. ([id number]) Address: [address] [place] [address] Performed By: #### 5 7021-8 #### [facility] CLIA [id number] [address] [place] [address] [place] Immature granulocytes (Bld) [#/Vol] 10*3/uL Normal <0.10 [facility] Comment on above: Order Comment: Speci men Type: BLOOD SPECIMEN Ordering Facility: PRATIK REECE M.D. ([id number]) Address: [facility] [address] [place] [address] Performed By: #### 5 7021-8 #### [facility] CLIA [id number] [address] [place] [address] [place] Immature granulocytes/100 WBC (Bld) 0.0 % Normal [facility] Comment on above: Order Comment: Speci men Type: BLOOD SPECIMEN Ordering Facility: PRATIK REECE M.D. ([id number]) Address: [facility] [address] [place] [address] Performed By: #### 5 7021-8 #### [facility] CLIA [id number] [address] [place] [address] [place] Lymphocytes (Bld) [#/Vol] 2.05 10*3/uL Normal 1.00-4.00 [facility] Comment on above: Order Comment: Speci men Type: BLOOD SPECIMEN Ordering Facility: PRATIK REECE M.D. ([id number]) Address: [address] [place] [address] Performed By: #### 5 7021-8 #### [facility] CLIA [id number] [address] [place] [address] [place] Lymphocytes/100 WBC (Bld) 41.6 % Normal [facility] Comment on above: Order Comment: Speci men Type: BLOOD SPECIMEN Ordering Facility: PRATIK REECE M.D. ([id number]) Address: [facility] [address] [address] Performed By: #### 5 7021-8 #### [facility] CLIA [id number] [address] [place] [address] [place] MCH (RBC) [Entitic mass] 30.8 pg Normal 26.0-34.0 [facility] Comment on above: Order Comment: Speci men Type: BLOOD SPECIMEN Ordering Facility: PRATIK REECE M.D. ([id number]) Address: [facility] [address] [place] [address] Performed By: #### 5 7021-8 #### [facility] CLIA [id number] [address] [place], [place] [address] [place] MCHC (RBC) [Mass/Vol] 33.4 g/dL Normal 30.5-36.0 [facility] Comment on above: Order Comment: Speci men Type: BLOOD SPECIMEN Ordering Facility: PRATIK REECE M.D. (M4) Address: [address] [place] [address] Performed By: #### 5 7021-8 #### [facility] CLIA [id number] [address] [place] [address] [place] MCV (RBC) [Entitic vol] 92.1 fL Normal 80.0-100.0 [facility] Comment on above: Order Comment: Speci men Type: BLOOD SPECIMEN Ordering Facility: PRATIK REECE M.D. ([facility]) Address: [address] [place] [address] Performed By: #### 5 7021-8 #### [facility] CLIA [id number] [address] [place] [address] [place] Monocytes (Bld) [#/Vol] 0.41 10*3/uL Normal <0.87 [facility] Comment on above: Order Comment: Speci men Type: BLOOD SPECIMEN Ordering Facility: PRATIK REECE M.D. (M4) Address: [address] [place] [address] Performed By: #### 5 7021-8 #### [facility] CLIA [id number] [address] [place] [address] [place] Monocytes/100 WBC (Bld) 8.3 % Normal [facility] Comment on above: Order Comment: Speci men Type: BLOOD SPECIMEN Ordering Facility: PRATIK REECE M.D. ([id number]) Address: [address] [place] [address] Performed By: #### 5 7021-8 #### [facility] CLIA [id number] [address] [place], [place] [address] [place] Neutrophils (Bld) [#/Vol] 2.12 10*3/uL Normal 1.45-7.50 [facility] Comment on above: Order Comment: Speci men Type: BLOOD SPECIMEN Ordering Facility: PRATIK REECE M.D. ([id number]) Address: [address] [place] [address] Performed By: #### 5 7021-8 #### [facility] CLIA [id number] [address] [place] [address] [place] Neutrophils/100 WBC (Bld) 43.0 % Normal [facility] Comment on above: Order Comment: Speci men Type: BLOOD SPECIMEN Ordering Facility: PRATIK REECE M.D. ([id number]) Address: [address] [place] [address] Performed By: #### 5 7021-8 #### [facility] CLIA [id number] [address] [place] [address] [place] Nucleated RBC (Bld) [#/Vol] 10*3/uL Normal <0.01 [facility] Comment on above: Order Comment: Speci men Type: BLOOD SPECIMEN Ordering Facility: PRATIK REECE M.D. ([id number]) Address: [address] [place] [address] Performed By: #### 5 7021-8 #### [facility] CLIA [id number] [address] [place] [address] [place] Nucleated RBC/100 WBC (Bld) [Ratio] 0.0 /100 WBC Normal [facility] Comment on above: Order Comment: Speci men Type: BLOOD SPECIMEN Ordering Facility: PRATIK REECE M.D. ([id number]) Address: [address] [place] [address] Performed By: #### 5 7021-8 #### [facility] CLIA [id number] [address] [place] [address] [place] Platelet mean volume (Bld) [Entitic vol] 9.5 fL Normal 9.0-12.7 [facility] Comment on above: Order Comment: Speci men Type: BLOOD SPECIMEN Ordering Facility: PRATIK REECE M.D. ([id number]) Address: [facility] [address] [place] [address] Performed By: #### 5 7021-8 #### [facility] CLIA [id number] [address] [place] [address] [place] Platelets (Bld) [#/Vol] 312 10*3/uL Normal 150-400 [facility] Comment on above: Order Comment: Speci men Type: BLOOD SPECIMEN Ordering Facility: PRATIK REECE M.D. ([id number]) Address: [facility] [address] [place] [address] Performed By: #### 5 7021-8 #### [facility] CLIA [id number] [address] [place] [address] [place] RBC (Bld) [#/Vol] 4.68 10*6/uL Normal 3.90-5.20 [facility] Comment on above: Order Comment: Speci men Type: BLOOD SPECIMEN Ordering Facility: PRATIK REECE M.D. ([id number]) Address: [facility] [address] [place] [address] Performed By: #### 5 7021-8 #### [facility] CLIA [id number] [address] [place] [address] [place] WBC (Bld) [#/Vol] 4.93 10*3/uL Normal 3.70-11.00 [facility] Comment on above: Order Comment: Speci men Type: BLOOD SPECIMEN Ordering Facility: PRATIK REECE M.D. ([id number]) Address: [facility] [address] [place] [address] Performed By: #### 5 7021-8 #### [facility] CLIA [id number] [address] [place], [place] [address] [facility] Comprehensive metabolic 2000 panelon 08-30-2024 Albumin [Mass/Vol] 4.8 g/dL Normal 3.9-4.9 [facility] Comment on above: Order Comment: Speci men Type: BLOOD SPECIMEN Ordering Facility: PRATIK REECE M.D. ([id number]) Address: [facility] [address] [place] [address] Performed By: #### 2 4323-8, 42240-0, 3 #### [facility] CLIA [id number] [address] [place] [address] [place] ALP [Catalytic activity/Vol] 83 U/L Normal 34-123 [facility] Comment on above: Order Comment: Speci men Type: BLOOD SPECIMEN Ordering Facility: PRATIK REECE M.D. ([id number]) Address: [facility] [address] [place] [address] Performed By: #### 2 4323-8, 32518-0, 3 #### [facility] CLIA [id number] [address] [place] [address] [place] ALT [Catalytic activity/Vol] 77 U/L High 7-38 [facility] Comment on above: Order Comment: Speci men Type: BLOOD SPECIMEN Ordering Facility: PRATIK REECE M.D. ([id number]) Address: [facility] [address] [place] [address] Performed By: #### 2 4323-8, 46415-1, 3 #### [facility] CLIA [id number] [address] [place] [address] [place] Anion gap [Moles/Vol] 10 mmol/L Normal 8-15 [facility] Comment on above: Order Comment: Speci men Type: BLOOD SPECIMEN Ordering Facility: PRATIK REECE M.D. ([id number]) Address: [facility] [address] [place] [address] Performed By: #### 2 4323-8, 95606-0, 3 #### [facility] CLIA [id number] [address] [place] [address] [place] AST [Catalytic activity/Vol] 45 U/L High 13-35 [facility] Comment on above: Order Comment: Speci men Type: BLOOD SPECIMEN Ordering Facility: PRATIK REECE M.D. ([id number]) Address: [facility] [address] [place] [address] Performed By: #### 2 4323-8, 92355-3, 6-3 #### [facility] CLIA [id number] [address] [place] [address] [place] Bilirubin [Mass/Vol] 0.8 mg/dL Normal 0.2-1.3 [facility] Comment on above: Order Comment: Speci men Type: BLOOD SPECIMEN Ordering Facility: PRATIK REECE M.D. ([id number]) Address: [facility] [address] [place] [address] Performed By: #### 2 4323-8, 42483-6, 3015-3 #### [facility] CLIA [id number] [address] [place] [address] [place] Calcium [Mass/Vol] 10.0 mg/dL Normal 8.5-10.2 [facility] Comment on above: Order Comment: Speci men Type: BLOOD SPECIMEN Ordering Facility: PRATIK REECE M.D. ([id number]) Address: [facility] [address] [place] [address] Performed By: #### 2 4323-8, 99843-7, 3015-3 #### [facility] CLIA [id number] [address] [place] [address] [place] Chloride [Moles/Vol] 105 mmol/L Normal 98-107 [facility] Comment on above: Order Comment: Speci men Type: BLOOD SPECIMEN Ordering Facility: PRATIK REECE M.D. ([id number]) Address: [facility] [address] [place] [address] Performed By: #### 2 4323-8, 24177-1, 3015-3 #### [facility] CLIA [id number] [address] [place], [place] [address] [place] CO2 [Moles/Vol] 25 mmol/L Normal 22-30 [facility] Comment on above: Order Comment: Speci men Type: BLOOD SPECIMEN Ordering Facility: PRATIK REECE M.D. ([id number]) Address: [facility] [address] [place] [address] Performed By: #### 2 4323-8, 19304-1, 6-3 #### [facility] CLIA [id number] [address] [place], [place] [address] [place] Creatinine [Mass/Vol] 0.83 mg/dL Normal 0.58-0.96 [facility] Comment on above: Order Comment: Speci men Type: BLOOD SPECIMEN Ordering Facility: PRATIK REECE M.D. ([id number]) Address: [facility] [address] [place] [address] Performed By: #### 2 4323-8, 72818-7, 3 #### [facility] CLIA [id number] [address] [place] [address] [place] Creatinine and Glomerular filtration rate.predicted panel (S/P/Bld) 83 mL/min/1.73m??? Normal >=60 [facility] Comment on above: Order Comment: Speci men Type: BLOOD SPECIMEN Ordering Facility: PRATIK REECE M.D. ([id number]) Address: [facility] [address] [place] [address] Result Comment: Roslyn mated Glomerular Filtration Rate (eGFR) is calculated using the 2020 CKD-EPI creatinine equation. This equation utilizes serum creatinine, sex, and age as parameters. The creatinine assay has traceable calibration to isotope dilution-mass spectrometry. Refer to KDIGO guidelines for clinical interpretation. In patients with unstable renal function, e.g. those with acute kidney injury, the eGFR may not accurately reflect actual GFR. Performed By: #### 2 4323-8, 37238-5, 3015-3 #### [facility] CLIA [id number] [address] [place], [place] [address] [place] Glucose [Mass/Vol] 100 mg/dL High 74-99 [facility] Comment on above: Order Comment: Speci edmundo Type: BLOOD SPECIMEN Ordering Facility: PRATIK REECE M.D. ([id number]) Address: [facility] [address] [place] [address] Result Comment: The [place] Diabetes [employer] (ADA) provides guidance for cutoff values for fasting glucose and random glucose. The ADA defines fasting as no caloric intake for at least 8 hours. Fasting plasma glucose results between 100 to 125 mg/dL indicate increased risk for diabetes (prediabetes). Fasting plasma glucose results greater than or equal to 126 mg/dL meet the criteria for diagnosis of diabetes. In the absence of unequivocal hyperglycemia, results should be confirmed by repeat testing. In a patient with classic symptoms of hyperglycemia or hyperglycemic crisis, random plasma glucose results greater than or equal to 200 mg/dL meet the criteria for diagnosis of diabetes. Reference: Standards of Medical Care in Diabetes 2016, [place] [employer]. Diabetes Care. 2016.39(Suppl 1). Performed By: #### 2 4323-8, 00308-4, 3016-3 #### [facility] CLIA [id number] [address] [place] [address] [place] Potassium [Moles/Vol] 4.4 mmol/L Normal 3.7-5.1 [facility] Comment on above: Order Comment: Stacey wyatt Type: BLOOD SPECIMEN Ordering Facility: PRATIK REECE M.D. ([id number]) Address: [facility] [address] [place] [id number] Performed By: #### 2 4323-8, 89356-1, 3 #### [facility] CLIA [id number] [address] [place], [place] [address] [place] Protein [Mass/Vol] 7.6 g/dL Normal 6.3-8.0 [facility] Comment on above: Order Comment: Stacey wyatt Type: BLOOD SPECIMEN Ordering Facility: PRATIK REECE M.D. ([id number]) Address: [address] [place] [address] Performed By: #### 2 4323-8, 86897-4, 3 #### [facility] CLIA [id number] [address] [place] [address] [place] Sodium [Moles/Vol] 140 mmol/L Normal 136-144 [facility] Comment on above: Order Comment: Stacey wyatt Type: BLOOD SPECIMEN Ordering Facility: PRATIK REECE M.D. ([id number]) Address: [facility] [address] [place] [address] Performed By: #### 2 4323-8, 23246-0, 3016-3 #### [facility] CLIA [id number] [address] [place] [address] [place] Urea nitrogen [Mass/Vol] 10 mg/dL Normal 7-21 [facility] Comment on above: Order Comment: Specmurray wyatt Type: BLOOD SPECIMEN Ordering Facility: PRATIK REECE M.D. ([id number]) Address: [facility] [address] [place] [address] Performed By: #### 2 4323-8, 05435-7, 6-3 #### [facility] CLIA [id number] [address] [place] [address] [place] HbA1c (Bld)on 08-30-2024 Average glucose Estimated from glycated hemoglobin (Bld) [Mass/Vol] 120 mg/dL Normal [facility] Comment on above: Order Comment: Stacey waytt Type: BLOOD SPECIMEN Ordering Facility: PRATIK REECE M.D. ([id number]) Address: [facility] [address] [place] [address] Result Comment: eAG: (Estimated average glucose) is a calculated value from HgbA1c and is compliance representative of the average blood glucose level in the last 2-3 month period. Performed By: #### 5 5454-3 #### [facility] CLIA [id number] [address] [place] [address] [place] HbA1c (Bld) [Mass fraction] 5.8 % Normal 4.3-6.1 [facility] Comment on above: Order Comment: Stacey wyatt Type: BLOOD SPECIMEN Ordering Facility: PRATIK REECE M.D. ([id number]) Address: [facility] [address] [place] [address] Result Comment: Amer ican Diabetes Association guidelines indicate that patients with HgbA1c in the range 5.7-6.4% are at increased risk for development of diabetes, and intervention by lifestyle modification may be beneficial. HgbA1c greater or equal to 6.5% is considered diagnostic of diabetes. Performed By: #### 5 5454-3 #### [facility] CLIA [id number] [address] [place] [address] [place] Lipid 1996 panelon 5 Cholesterol [Mass/Vol] 240 mg/dL High <200 [facility] Comment on above: Order Comment: Speci men Type: BLOOD SPECIMEN Ordering Facility: PRATIK REECE M.D. ([id number]) Address: [facility] [address] [place] [address] Result Comment: <200 mg/dL, Desirable 200-239 mg/dL, Borderline high >239 mg/dL, High Performed By: #### 2 4323-8, 25922-5, 3016-3 #### [facility] CLIA [id number] [address] [place] [address] [place] Cholesterol in HDL [Mass/Vol] 55 mg/dL Normal >39 [facility] Comment on above: Order Comment: [facility] Type: BLOOD SPECIMEN Ordering Facility: PRATIK REECE M.D. ([id number]) Address: [facility] [address] [place] [address] Result Comment: 40-5 9 mg/dL, Acceptable >59 mg/dL, High: Negative risk factor for coronary heart disease <40 mg/dL, Low: Positive risk factor for coronary heart disease Performed By: #### 2 4323-8, 62280-1, 3016-3 #### [facility] CLIA [id number] [address] [place] [address] [place] Cholesterol in LDL [Mass/Vol] 162 mg/dL High <100 [facility] Comment on above: Order Comment: [facility] Type: BLOOD SPECIMEN Ordering Facility: PRATIK REECE M.D. ([id number]) Address: [address] [place] [address] Result Comment: <100 mg/dL, Optimal 100-129 mg/dL, Near optimal/above optimal 130-159 mg/dL, Borderline high 160-189 mg/dL, High >189 mg/dL, Very high Secondary prevention optimal LDL Cholesterol levels are recommended to be < 70 mg/dL Performed By: #### 2 4323-8, 64037-1, 3016-3 #### [facility] CLIA [id number] [address] [place], [place] [address] [place] Cholesterol in LDL/Cholesterol in HDL [Mass ratio] 2.95 {ratio} High <2.54 [facility] Comment on above: Order Comment: Speci men Type: BLOOD SPECIMEN Ordering Facility: PRATIK REECE M.D. ([id number]) Address: [address] [place] [address] Result Comment: Refe rence: 1. National Cholesterol Education Program ATP III Guideline At-A-Glance Quick Desk Reference: National Heart, Lung, and Blood [place]. National Institutes of Health. 2001: NIH Publication No. 01-3305. 2. An International Atherosclerosis Society position paper: global recommendations for the management of dyslipidemia: executive summary, Atherosclerosis. 2014: 232(2):410-413. Performed By: #### 2 4323-8, 97268-9, 6-3 #### [facility] CLIA [id number] [address] [place] [address] [place] Cholesterol in VLDL [Mass/Vol] 23 mg/dL Normal <30 [facility] Comment on above: Order Comment: Speci men Type: BLOOD SPECIMEN Ordering Facility: PRATIK REECE M.D. ([id number]) Address: [address] [place] [address] Performed By: #### 2 4323-8, 78389-1, 6-3 #### [facility] CLIA [id number] [address] [place], [place] [address] [place] Cholesterol non HDL [Mass/Vol] 185 mg/dL High <130 [facility] Comment on above: Order Comment: Speci men Type: BLOOD SPECIMEN Ordering Facility: PRATIK REECE M.D. ([id number]) Address: [address] [place] [address] Result Comment: <130 mg/dL, Optimal 130-159 mg/dL, Near optimal/above optimal 160-189 mg/dL, Borderline high 190-219 mg/dL, High >219 mg/dL, Very high Secondary prevention optimal non HDL Cholesterol levels are recommended to be <100 mg/dL Performed By: #### 2 4323-8, 19219-3, 3015-3 #### [facility] CLIA [id number] [address] [place] [address] [place] Cholesterol.total/C holesterol in HDL [Mass ratio] 4.36 {ratio} Normal <5.10 [facility] Comment on above: Order Comment: Speci men Type: BLOOD SPECIMEN Ordering Facility: PRATIK REECE M.D. ([id number]) Address: [address] [place] [address] Performed By: #### 2 4323-8, 41189-9, 3 #### [facility] CLIA [id number] [address] [place] [address] STATES [facility] FASTING TIME 17HRS Normal [facility] Comment on above: Order Comment: Speci men Type: BLOOD SPECIMEN Ordering Facility: PRATIK REECE M.D. ([id number]) Address: [address] [place] [address] Performed By: #### 2 4323-8, 81992-4, 3 #### [facility] CLIA [id number] [address] [place] [address] [place] [facility] Triglyceride [Mass/Vol] 113 mg/dL Normal <150 [facility] Comment on above: Order Comment: Speci men Type: BLOOD SPECIMEN Ordering Facility: PRATIK REECE M.D. ([id number]) Address: [address] [place] [address] Result Comment: <150 mg/dL, Normal 150-199 mg/dL, Borderline high 200-499 mg/dL, High >499 mg/dL, Very high Performed By: #### 2 4323-8, 88413-6, 3015-3 #### [facility] CLIA [id number] [address] [place] [address] [place] TSH SerPl-aCncon 08-30-2024 TSH Qn 1.960 m[IU]/L Normal 0.270-4.200 [facility] Comment on above: Order Comment: Speci men Type: BLOOD SPECIMEN Ordering Facility: PRATIK REECE M.D. ([id number]) Address: [facility] [address] [place] [address] Performed By: #### 2 4323-8, 86909-1, 3016-3 #### [facility] CLIA [id number] [address] [place] [address] OF [place] HENRI SCREENING W TOMOon 11-25 [facility] CNOVon 11-21-2022 CNOV Office Visit (OBGDOV ) WILFRIDO DURAN ([id number]) 1970 F Date Time Provider Department 11/21/22 9:00 AM CM BAILON During your visit today, we recorded the following information about you: Pulse Blood pressure Weight Height 82/minute 143/92 91.6 kg 1.664 m Cm Bailon DO 11/21/2022 9:34 AM Signed Wilfrido is a 52 year old who presents for an annual gynecologic exam without complaints. Postmenopausal: Yes since age hysterectomy (vaginal) 2-3 y ago per patient with BSO for AUB-L HRT use: No. 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 Hypercholesterolemia past medical history 1996 colp/cryo/[place] PAST SURGICAL HISTORY Procedure Laterality Date PAST SURGICAL HISTORY OF x 2/BTO PAST SURGICAL HISTORY OF 3 exp lap 1994 and later/endometriosis and ovarian cyst PAST SURGICAL HISTORY OF 06/18/2004 melenoma right jarvis REMOVAL GALLBLADDER 2020 TUBAL LIGATION HX VAGINAL HYSTERECTOMY 2019 FAMILY HISTORY Problem Relation Age of Onset Cancer Mother lung None Father other (uterine cancer) Sister HU, no radiation SOCIAL HISTORY Social History Tobacco Use Smoking status: Never Smokeless tobacco: Never Substance Use Topics Alcohol use: Yes Comment: two or three beers weekly Drug use: No REVIEW OF SYSTEMS Abdomen: No abdominal pain, nausea, vomiting, diarrhea, or constipation. No bloating, early satiety, indigestion, or increased flatulence. Bladder: No dysuria, gross hematuria, urinary frequency, urinary urgency, or incontinence Breast: No breast lumps, nipple d/c, overlying skin changes, redness or skin retraction Allergies and current medication updated:Yes EXAM: BP 143/92 Pulse 82 Ht 5' 5.5 (1.66m) Wt 202 lb (91.6kg) SpO2 99% LMP 11/07/2017 BMI 33.09 kg/(m2). GENERAL: pleasant, female in no apparent distress HEENT: Normocephalic, atraumatic, mucus membranes moist, and no lesions NECK: Supple, full range of motion, no adenopathy, and thyroid normal DERMATOLOGY: Normal, without lesions, non-icteric, and non-hirsute BREAST: soft, non-tender, symmetric, no dominant mass, normal nipple-areolar complex, no lymphadenopathy, and no nipple discharge CHEST: Normal inspiratory effort ABDOMEN: soft, non-tender, and no masses PELVIC: external genitalia normal, normal Bartholin's glands, urethra, Axis's glands, no vulvar lesions, no cervical lesions, good vaginal support, physiologic discharge present, normal appearing perineal body and perianal region BIMANUAL: uterus normal size, shape and consistency, no adnexal masses, and non-tender RECTOVAGINAL: deferred. NEURO: alert and oriented x3,exam grossly non-focal EXTREMITIES: normal ASSESSMENT/PLAN: 1) Health maintenance: Pap/HPV screening no longer needed Mammogram ordered 2) Follow up one year or sooner as needed This visit was chaperoned by Lakisha Bailon DO I spent a total of 30 minutes on the date of the service which included preparing to see the patient, [id number] patient care, completing clinical documentation, obtaining and/or reviewing separately obtained history, performing a medically appropriate examination, counseling and educating the patient/family/caregi golden, and ordering medications, tests, or procedures. Allergies As of Date: 11/21/2022 (No Known Allergies) Date Reviewed: 11/21/2022 Reviewed by: Lakisha Salguero MA - Fully Assessed Reason for Visit: Muff Winder Exam [50] Primary Visit Diagnosis:Encounter for gynecological examination (general) (routine) without abnormal findings [Z01.419] Other Visit Diagnosis:Encounter for screening mammogram for malignant neoplasm of breast [Z12.31] Order(s):[facility] SCREENING [[id number]] Order #: [id number] FUTURE Prescriptions as of 11/21/2022 - lisinopril (ZESTRIL) 10 mg tablet Take 10 mg by mouth once daily. - calcium carbonate/vitamin d3(CALCIUM 600 + D 600 MG-125 UNIT TAB) Take one(1) tablet twice daily. - DAILY MULTIVITAMIN TAB Take one(1) tablet daily. Problem List As Of Date 11/21/2022 Noted Resolved PERS HX MALIG SKIN MELANOMA [Z85.820] 02/12/2007 Abnormal Pap smear [ONC7622] 12/19/2011 Hypercholesteremia [E78.00] 02/18/2013 Benign essential HTN [I10] 08/16/2015 Intramural leiomyoma of (more content not included)... Normal [facility] [id number] 10-28-2022 HbA1c (Bld) [Mass fraction] 5.4 % Normal 4.3-6.1 [facility] Comment on above: Result Comment: Estimated Average Glucose: HgbA1C % mg/dL 4.0 68 5.0 97 6.0 125 7.0 154 8.0 183 9.0 212 10.0 240 Source: [place] Di[employer] web site, 2017. Performed By: #### L 200.2000 #### [facility] [address] [place] [address] 25-hydroxyvitamin D3 [Mass/V ol]on 10-27-2022 VITAMIN D 57.6 ng/mL 30 - 100 ng/mL [facility] CBCon 10-27-2022 BASO# 0.20 x10(3) High 0.00-0.10 [facility] Comment on above: Performed By: #### L 200.0010 #### [facility] - [facility]AT[facility] [address] [place] [address]43 Basophils/100 WBC (Bld) 3.4 % High 0.0-1.0 [facility] Comment on above: Performed By: #### L 200.0010 #### [facility] - [facility] [address] [place] [address] 15839 EOS# 0.30 x10(3) Normal 0.00-0.54 [facility] Comment on above: Performed By: #### L 200.0010 #### [facility] - [facility] [address] [place] [address]77 Eosinophils/100 WBC (Bld) 5.6 % High 0.5-4.9 [facility] Comment on above: Performed By: #### L 200.0010 #### [facility] [address] [place] [address] 03540 Erythrocyte distribution width (RBC) [Ratio] 12.4 % Low 12.5-15.7 [facility] Comment on above: Performed By: #### L 200.0010 #### [facility] - [facility] [address] [place] [address] 36532 Hematocrit (Bld) [Volume fraction] 43.0 % Normal 36.0-48.0 [facility] Comment on above: Performed By: #### L 200.0010 #### [facility] [address] [place] [address] 66563 Hemoglobin (Bld) [Mass/Vol] 14.8 g/dL Normal 12.0-16.0 [facility] Comment on above: Performed By: #### L 200.0010 #### [facility] [address] [place] [address] 35382 LYMPH# 1.90 x10(3) Normal 1.00-3.50 [facility] Comment on above: Performed By: #### L 200.0010 #### ML [facility] [address] [place] [address] 18115 Lymphocytes/100 WBC (Bld) 36.7 % Normal 16.0-48.0 [facility] Comment on above: Performed By: #### L 200.0010 #### ML [facility] [address] [place] [address] 14254 MCH (RBC) [Entitic mass] 31.5 pg Normal 28.5-32.9 [facility] Comment on above: Performed By: #### L 200.0010 #### ML [facility] [address] [place] [address] 88721 MCHC (RBC) [Mass/Vol] 34.4 g/dL Normal 33.0-36.0 [facility] Comment on above: Performed By: #### L 200.0010 #### [facility] [address] [place] [address] 51062 MCV (RBC) [Entitic vol] 91.4 fL Normal 80.0-99.0 [facility] Comment on above: Performed By: #### L 200.0010 #### [facility] [address] [place] [address] 20650 MONO# 0.40 x10(3) Normal 0.30-0.80 [facility] Comment on above: Performed By: #### L 200.0010 #### [facility] [address] [place] [address] 44717 Monocytes/100 WBC (Bld) 8.6 % Normal 4.3-11.2 [facility] Comment on above: Performed By: #### L 200.0010 #### [facility] [address] [place] [address] 64784 NEUT# 2.30 x10(3) Normal 1.40-6.50 [facility] Comment on above: Performed By: #### L 200.0010 #### [facility] [address] [place] [address] 61648 Neutrophils/100 WBC (Bld) 45.7 % Normal 45.0-73.0 [facility] Comment on above: Performed By: #### L 200.0010 #### [facility] - [facility] [address] [place] [address] Platelet mean volume (Bld) [Entitic vol] 8.1 fL Normal 7.5-9.5 [facility] Comment on above: Performed By: #### L 200.0010 #### [facility] - [facility] [address] [place] [address] 46029 PLT 287 X10(3) Normal 150-450 [facility] Comment on above: Performed By: #### L 200.0010 #### [facility] - [facility] [address] [place] [address] RBC 4.70 x10(6) Normal 3.30-5.00 [facility] Comment on above: Performed By: #### L 200.0010 #### [facility] - [facility] [address] [place] [address] 85144 WBC 5.1 x10(3) Normal 4.5-10.0 [facility] Comment on above: Performed By: #### L 200.0010 #### [facility] - [facility] [address] [place] [address] 54378 CBC W Auto Differential pane l (Bld)on 10-27-2022 BASO ABS 0.20 x10(3) High 0.00 - 0.10 x10(3) [facility] Basophils/100 WBC (Bld) 3.4 % High 0.0 - 1.0 % [facility] EOS ABS 0.30 x10(3) 0.00 - 0.54 x10(3) [facility] Eosinophils/100 WBC (Bld) 5.6 % High 0.5 - 4.9 % [facility] Erythrocyte distribution width (RBC) [Ratio] 12.4 % Low 12.5 - 15.7 % [facility] Hematocrit (Bld) [Volume fraction] 43.0 % 36.0 - 48.0 % [facility] Hemoglobin (Bld) [Mass/Vol] 14.8 g/dL 12.0 - 16.0 g/dL [facility] LYMPH ABS 1.90 x10(3) 1.00 - 3.50 x10(3) [facility] Lymphocytes/100 WBC (Bld) 36.7 % 16.0 - 48.0 % [facility] MCH (RBC) [Entitic mass] 31.5 pg 28.5 - 32.9 pg [facility] MCHC (RBC) [Mass/Vol] 34.4 g/dL 33.0 - 36.0 g/dL [facility] MCV (RBC) [Entitic vol] 91.4 fL 80.0 - 99.0 fl [facility] MONO ABS 0.40 x10(3) 0.30 - 0.80 x10(3) [facility] Monocytes/100 WBC (Bld) 8.6 % 4.3 - 11.2 % [facility] Neutrophil Ab 2.30 x10(3) 1.40 - 6.50 x10(3) [facility] Neutrophils/100 WBC (Bld) 45.7 % 45.0 - 73.0 % [facility] Platelet mean volume (Bld) [Entitic vol] 8.1 fL 7.5 - 9.5 fl [facility] Platelets (Bld) [#/Vol] 287 X10(3) 150 - 450 X10(3) [facility] RBC (Bld) [#/Vol] 4.70 x10(6) 3.30 - 5.0 0 x10(6) [facility] WBC (Bld) [#/Vol] 5.1 x10(3) 4.5 - 10.0 x10(3) [facility] CMPon 10-27-2022 A:G RATIO 1.88 Normal 1.1-2.5 [facility] Comment on above: Performed By: #### L 304.0162, L100.0040, L100.0005, L304.0297, L304.0140 #### [facility] - [facility] [address] [place] [address] Albumin [Mass/Vol] 5.1 g/dL Normal 3.5-5.2 [facility] Comment on above: Performed By: #### L 304.0162, L100.0040, L100.0005, L304.0297, L304.0140 #### ML [facility] [address] [place] [address] ALK. PHOS 95 U/L Normal 35-105 [facility] Comment on above: Performed By: #### L 304.0162, L100.0040, L100.0005, L304.0297, L304.0140 #### - LABORATORY [address] [place] [address] 19716 ALT [Catalytic activity/Vol] 67 U/L High 5-33 [facility] Comment on above: Performed By: #### L 304.0162, L100.0040, L100.0005, L304.0297, L304.0140 #### - LAB[facility]ATORY [address] [place] [address] 44181 Anion gap [Moles/Vol] 17.6 mmol/L Normal 15-22 [facility] Comment on above: Performed By: #### L 304.0162, L100.0040, L100.0005, L304.0297, L304.0140 #### [facility] [address] [place] [address] 65410 AST [Catalytic activity/Vol] 34 U/L High - [facility] Comment on above: Performed By: #### L 304.0162, L100.0040, L100.0005, L304.0297, L304.0140 #### [facility] [address] [place] [address] 01678 Bilirubin [Mass/Vol] 0.6 mg/dL Normal 0.2-1.2 [facility] Comment on above: Performed By: #### L 304.0162, L100.0040, L100.0005, L304.0297, L304.0140 #### - LABORATORY [address] [place] [address] 25642 Calcium [Mass/Vol] 9.7 mg/dL Normal 8.6-10.0 [facility] Comment on above: Performed By: #### L 304.0162, L100.0040, L100.0005, L304.0297, L304.0140 #### [facility] [address] [place] [address] 41547 Chloride [Moles/Vol] 103 mmol/L Normal 98-107 [facility] Comment on above: Performed By: #### L 304.0162, L100.0040, L100.0005, L304.0297, L304.0140 #### - LABORATORY [address] [place] [address] CO2 [Moles/Vol] 22 mmol/L Normal 22-29 [facility] Comment on above: Performed By: #### L 304.0162, L100.0040, L100.0005, L304.0297, L304.0140 #### [facility] [address] [place] [address] 94993 Creatinine [Mass/Vol] 0.70 mg/dL Normal 0.50-0.90 [facility] Comment on above: Performed By: #### L 304.0162, L100.0040, L100.0005, L304.0297, L304.0140 #### [facility] [address] [place] [address] 42718 eGFR if AFR NERISSA > 60 ml/min/1.73m2 Normal [facility] Comment on above: Result Comment: eGFR >= 60 Indicates normal kidney function. * eGFR IS AN ESTIMATE * (AFR NERISSA = ) (non-AFR AM = NON-) MDRD calculation used in the eGFR should not be used to dose medications. For further limitations of the eGFR please refer to the Physician Website or the National Kidney Disease Education Program website (www.nkdep.nih.gov). Performed By: #### L 304.0162, L100.0040, L100.0005, L304.0297, L304.0140 #### [facility] [address] [place] [address] eGFR nonAFR Nerissa > 60 ml/Min/1.73m2 Normal [facility] Comment on above: Performed By: #### L 304.0162, L100.0040, L100.0005, L304.0297, L304.0140 #### - LABORATORY [address] [place] [address] 65427 Globulin (S) [Mass/Vol] 2.7 g/dL Normal 1.5-4.5 [facility] Comment on above: Performed By: #### L 304.0162, L100.0040, L100.0005, L304.0297, L304.0140 #### - LABORATORY [address] [place] [address] 36271 Glucose [Mass/Vol] 104 mg/dL Normal 74-106 [facility] Comment on above: Performed By: #### L 304.0162, L100.0040, L100.0005, L304.0297, L304.0140 #### [facility] [address] [place] [address] 42339 Potassium [Moles/Vol] 4.6 mmol/L Normal 3.5-5.0 [facility] Comment on above: Performed By: #### L 304.0162, L100.0040, L100.0005, L304.0297, L304.0140 #### [facility] [address] [place] [address] 34570 Protein [Mass/Vol] 7.8 g/dL Normal 6.4-8.3 [facility] Comment on above: Performed By: #### L 304.0162, L100.0040, L100.0005, L304.0297, L304.0140 #### - LAB[facility]ATORY [address] [place] [address] 10107 Sodium [Moles/Vol] 138 mmol/L Normal 135-145 [facility] Comment on above: Performed By: #### L 304.0162, L100.0040, L100.0005, L304.0297, L304.0140 #### - LABORATORY [address] [place] [address] 31029 Urea nitrogen [Mass/Vol] 8 mg/dL Normal 6-20 [facility] Comment on above: Performed By: #### L 304.0162, L100.0040, L100.0005, L304.0297, L304.0140 #### [facility] [address] [place] [address] Comprehensive metabolic 2000 panelon 10-27-2022 Albumin [Mass/Vol] 5.1 g/dL 3.5 - 5.2 g/dL [facility] Albumin/Globulin [Mass ratio] 1.88 {ratio} 1.1 - 2.5 [facility] ALP [Catalytic activity/Vol] 95 U/L 35 - 105 U/L [facility] ALT [Catalytic activity/Vol] 67 U/L High 5 - 33 U/L [facility] Anion gap [Moles/Vol] 17.6 mmol/L 15 - 22 mmol/L [facility] AST [Catalytic activity/Vol] 34 U/L High 5 - 32 U/L [facility] Bilirubin [Mass/Vol] 0.6 mg/dL 0.2 - 1.2 mg/dL [facility] Calcium [Mass/Vol] 9.7 mg/dL 8.6 - 10. 0 mg/dL [facility] Chloride [Moles/Vol] 103 mmol/L 98 - 107 mmol/L [facility] CO2 [Moles/Vol] 22 mmol/L 22 - 29 mmol/L [facility] Creatinine [Mass/Vol] 0.70 mg/dL 0.50 - 0.90 mg/dL [facility] eGFR-All Other Races > 60 ml/Min/1.73m2 [facility] GFR/1.73 sq M.predicted among blacks MDRD (S/P/Bld) [Vol rate/Area] mL/min/{1.73_m2} [facility] Globulin (S) [Mass/Vol] 2.7 g/dL 1.5 - 4.5 g/dL [facility] Glucose [Mass/Vol] 104 mg/dL 74 - 106 mg/dL [facility] Potassium [Moles/Vol] 4.6 mmol/L 3.5 - 5.0 mmol/L [facility] Protein [Mass/Vol] 7.8 g/dL 6.4 - 8.3 g/dL [facility] Sodium [Moles/Vol] 138 mmol/L 135 - 145 mmol/L [facility] Urea nitrogen [Mass/Vol] 8 mg/dL 6 - 20 mg/dL [facility] FREE T3on 10-27-2022 Free T3 [Mass/Vol] 3.1 pg/mL Normal 2.0-4.4 [facility] Comment on above: Performed By: #### L 304.0162, L100.0040, L100.0005, L304.0297, L304.0140 #### - LABORATORY [address] [place] [address] 71372 Free T4on 10-27-2022 Free T4 [Mass/Vol] 1.03 ng/dL Normal 0.93-1.7 [facility] Comment on above: Performed By: #### L 304.0162, L100.0040, L100.0005, L304.0297, L304.0140 #### - LABORATORY [address] [place] [address] 53779 HbA1c (Bld)on 10-27-2022 HbA1c (Bld) [Mass fraction] 5.4 % 4.3 - 6.1 % [facility] LIPID PANELon 10-27-2022 Cholesterol [Mass/Vol] 262 mg/dL High 130-200 [facility] Comment on above: Performed By: #### L 304.0162, L100.0040, L100.0005, L304.0297, L304.0140 #### - LABORATORY [address] [place] [address] 42732 Cholesterol in HDL [Mass/Vol] 65 mg/dL Normal [facility] Comment on above: Result Comment: [place] onal Cholesterol Education Program (NCEP) guidelines: <40 mg/dL: Low HDL-Cholesterol(major risk factor for CHD) > or = 60 mg/dL: High HDL-Cholesterol(negative risk factor for CHD) HDL-cholesterol is affected by a number of factors, e.g., smoking, exercise, hormones, sex, and age. 4th Generation Test; Results may be approximately 7% lower than previous values. Performed By: #### L 304.0162, L100.0040, L100.0005, L304.0297, L304.0140 #### - LABORATORY [address] [place] [address] 88537 Cholesterol in LDL [Mass/Vol] 178 mg/dL Normal [facility] Comment on above: Result Comment: LDL: OPTIMAL FOR PEOPLE AT VERY HIGH RISK <70 OPTIMAL <100 NEAR OPTIMAL 100-129 BORDERLINE HIGH 130-159 HIGH 160-189 VERY HIGH >=190 Source: 2009 NCEP ATP III, ADA Guidelines Reviewed: September, Performed By: #### L 304.0162, L100.0040, L100.0005, L304.0297, L304.0140 #### ML - LABORATORY [address] [place] [address] 65005 Cholesterol in VLDL [Mass/Vol] 19 mg/dL Normal 6-40 [facility] Comment on above: Performed By: #### L 304.0162, L100.0040, L100.0005, L304.0297, L304.0140 #### ML - LABORATORY [address] [place] [address] 65798 LDL/HDL RATIO 2.7 Normal [facility] Comment on above: Performed By: #### L 304.0162, L100.0040, L100.0005, L304.0297, L304.0140 #### ML - LABORATORY [address] [place] [address] Triglyceride [Mass/Vol] 97 mg/dL Normal [facility] Comment on above: Result Comment: TRIG : DESIRABLE: <150 mg/dL Performed By: #### L 304.0162, L100.0040, L100.0005, L304.0297, L304.0140 #### ML - LABORATORY [address] [place] [address] 71349 Lipid 1996 panelon Cholesterol [Mass/Vol] 262 mg/dL High 130 - 200 mg/dL [facility] Cholesterol in HDL [Mass/Vol] 65 mg/dL [facility] Cholesterol in LDL [Mass/Vol] 178 mg/dL [facility] LDL:HDL Ratio 2.7 [facility] Triglyceride [Mass/Vol] 97 mg/dL [facility] VLDL Cholesterol 19 mg/dL 6 - 40 mg/dL [facility] T3 FREE BLDon 10-27-2022 Free T3 [Mass/Vol] 3.1 pg/mL 2.0 - 4.4 pg/mL [facility] T4 FREE/FREE THYROXon 2022 Free T4 [Mass/Vol] 1.03 ng/dL 0.93 - 1. 7 ng/dL [facility] TSHon 10-27-2022 TSH 2.19 uIU/mL Normal 0.270-4.200 [facility] Comment on above: Performed By: #### L 304.0162, L100.0040, L100.0005, L304.0297, L304.0140 #### ML - LABORATORY [address] [place] [address] 97338 TSH BLDon 10-27-2022 TSH Qn 2.19 uIU/mL 0.270 - 4.200 uIU/mL [facility] VITAMIN Don 10-27-2022 VITAMIN D 57.6 ng/mL Normal 30-100 [facility] Comment on above: Performed By: #### L 304.0470 #### ML - LABORATORY [address] [place] [address] 58244 CBCon 10-18-2021 BASO# 0.10 x10(3) Normal 0.00-0.10 [facility] Comment on above: Performed By: #### L 200.0010 #### ML - LABORATORY [address] [place] [address] 43450 Basophils/100 WBC (Bld) 1.4 % High 0.0-1.0 [facility] Comment on above: Performed By: #### L 200.0010 #### ML - LABORATORY [address] [place] [address] 83913 EOS# 0.30 x10(3) Normal 0.00-0.54 [facility] Comment on above: Performed By: #### L 200.0010 #### ML [facility] LABORATORY [address] [place] [address] 43656 Eosinophils/100 WBC (Bld) 6.6 % High 0.5-4.9 [facility] Comment on above: Performed By: #### L 200.0010 #### ML - LABORATORY [address] [place] [address] 00919 Erythrocyte distribution width (RBC) [Ratio] 12.3 % Low 12.5-15.7 [facility] Comment on above: Performed By: #### L 200.0010 #### ML - LABORATORY [address] [place] [address] 46044 Hematocrit (Bld) [Volume fraction] 42.4 % Normal 36.0-48.0 [facility] Comment on above: Performed By: #### L 200.0010 #### ML - LABORATORY [address] [place] [address] 10786 Hemoglobin (Bld) [Mass/Vol] 13.9 g/dL Normal 12.0-16.0 [facility] Comment on above: Performed By: #### L 200.0010 #### ML [facility] LABORATORY [address] [place] [address] 23111 LYMPH# 1.80 x10(3) Normal 1.00-3.50 [facility] Comment on above: Performed By: #### L 200.0010 #### ML - LABORATORY [address] [place] [address] 62407 Lymphocytes/100 WBC (Bld) 33.5 % Normal 16.0-48.0 [facility] Comment on above: Performed By: #### L 200.0010 #### ML [facility] LABORATORY [address] [place] [address] 89533 MCH (RBC) [Entitic mass] 30.2 pg Normal 28.5-32.9 [facility] Comment on above: Performed By: #### L 200.0010 #### ML - LABORATORY [address] [place] [address] 95210 MCHC (RBC) [Mass/Vol] 32.9 g/dL Low 33.0-36.0 [facility] Comment on above: Performed By: #### L 200.0010 #### ML [facility] LABORATORY [address] [place] [address] 93192 MCV (RBC) [Entitic vol] 92.0 fL Normal 80.0-99.0 [facility] Comment on above: Performed By: #### L 200.0010 #### ML - LABORATORY [address] [place] [address] 41190 MONO# 0.50 x10(3) Normal 0.30-0.80 [facility] Comment on above: Performed By: #### L 200.0010 #### ML [facility] LABORATORY [address] [place] [address] 41649 Monocytes/100 WBC (Bld) 9.1 % Normal 4.3-11.2 [facility] Comment on above: Performed By: #### L 200.0010 #### ML - LABORATORY [address] [place] [address] 21471 NEUT# 2.60 x10(3) Normal 1.40-6.50 [facility] Comment on above: Performed By: #### L 200.0010 #### ML [facility] LABORATORY [address] [place] [address] 83116 Neutrophils/100 WBC (Bld) 49.4 % Normal 45.0-73.0 [facility] Comment on above: Performed By: #### L 200.0010 #### ML [facility] LABORATORY [address] [place] [address] 74298 Platelet mean volume (Bld) [Entitic vol] 7.8 fL Normal 7.5-9.5 [facility] Comment on above: Performed By: #### L 200.0010 #### ML [facility] LABORATORY [address] [place] [address] 18798 PLT 295 X10(3) Normal 150-450 [facility] Comment on above: Performed By: #### L 200.0010 #### ML [facility] LABORATORY [address] [place] [address] 78368 RBC 4.61 x10(6) Normal 3.30-5.00 [facility] Comment on above: Performed By: #### L 200.0010 #### ML [facility] LABORATORY [address] [place] [address] 83811 WBC 5.3 x10(3) Normal 4.5-10.0 [facility] Comment on above: Performed By: #### L 200.0010 #### ML - LABORATORY [address] [place] [address] 82524 CBC W Auto Differential pane l (Bld)on 10-18-2021 BASO ABS 0.10 x10(3) 0.00 - 0.10 x10(3) [facility] Basophils/100 WBC (Bld) 1.4 % High 0.0 - 1.0 % [facility] EOS ABS 0.30 x10(3) 0.00 - 0.54 x10(3) [facility] Eosinophils/100 WBC (Bld) 6.6 % High 0.5 - 4.9 % [facility] Erythrocyte distribution width (RBC) [Ratio] 12.3 % Low 12.5 - 15.7 % [facility] Hematocrit (Bld) [Volume fraction] 42.4 % 36.0 - 48.0 % [facility] Hemoglobin (Bld) [Mass/Vol] 13.9 g/dL 12.0 - 16.0 g/dL [facility] LYMPH ABS 1.80 x10(3) 1.00 - 3.50 x10(3) [facility] Lymphocytes/100 WBC (Bld) 33.5 % 16.0 - 48.0 % [facility] MCH (RBC) [Entitic mass] 30.2 pg 28.5 - 32.9 pg [facility] MCHC (RBC) [Mass/Vol] 32.9 g/dL Low 33.0 - 36.0 g/dL [facility] MCV (RBC) [Entitic vol] 92.0 fL 80.0 - 99.0 fl [facility] MONO ABS 0.50 x10(3) 0.30 - 0.80 x10(3) [facility] Monocytes/100 WBC (Bld) 9.1 % 4.3 - 11.2 % [facility] Neutrophil Ab 2.60 x10(3) 1.40 - 6.50 x10(3) [facility] Neutrophils/100 WBC (Bld) 49.4 % 45.0 - 73.0 % [facility] Platelet Count 295 X10(3) 150 - 450 X10(3) [facility] Platelet mean volume (Bld) [Entitic vol] 7.8 fL 7.5 - 9.5 fl [facility] RBC 4.61 x10(6) 3.30 - 5.00 x10(6) [facility] WBC 5.3 x10(3) 4.5 - 10.0 x10(3) [facility] CMPon 10-18-2021 A:G RATIO 1.88 Normal 1.1-2.5 [facility] Comment on above: Performed By: #### L 304.0140, L100.0040, L100.0005 #### ML - LABORATORY [address] [place] [address] 10375 Albumin [Mass/Vol] 4.9 g/dL Normal 3.5-5.2 [facility] Comment on above: Performed By: #### L 304.0140, L100.0040, L100.0005 #### ML - LABORATORY [address] [place] [address] 16564 ALK. PHOS 105 U/L Normal 35-105 [facility] Comment on above: Performed By: #### L 304.0140, L100.0040, L100.0005 #### - LABORATORY [address] [place] [address] 47611 ALT [Catalytic activity/Vol] 40 U/L High 5-33 [facility] Comment on above: Performed By: #### L 304.0140, L100.0040, L100.0005 #### ML - LABORATORY [address] [place] [address] 48480 Anion gap [Moles/Vol] 19.7 mmol/L Normal 15- [facility] Comment on above: Performed By: #### L 304.0140, L100.0040, L100.0005 #### - LABORATORY [address] [place] [address] 18542 AST [Catalytic activity/Vol] 24 U/L Normal -32 [facility] Comment on above: Performed By: #### L 304.0140, L100.0040, L100.0005 #### ML - LABORATORY [address] [place] [address] 91488 Bilirubin [Mass/Vol] 0.6 mg/dL Normal 0.2-1.2 [facility] Comment on above: Performed By: #### L 304.0140, L100.0040, L100.0005 #### ML - LABORATORY [address] [place] [address] Calcium [Mass/Vol] 10.1 mg/dL High 8.6-10.0 [facility] Comment on above: Performed By: #### L 304.0140, L100.0040, L100.0005 #### - LABORATORY [address] [place] [address] 08334 Chloride [Moles/Vol] 103 mmol/L Normal 98-107 [facility] Comment on above: Performed By: #### L 304.0140, L100.0040, L100.0005 #### [facility] LABORATORY [address] [place] [address] 62419 CO2 [Moles/Vol] 21 mmol/L Low 22-29 [facility] Comment on above: Performed By: #### L 304.0140, L100.0040, L100.0005 #### [facility] LABORATORY [address] [place] [address] 53065 Creatinine [Mass/Vol] 0.73 mg/dL Normal 0.50-0.90 [facility] Comment on above: Performed By: #### L 304.0140, L100.0040, L100.0005 #### [facility] LABORATORY [address] [place] [address] 59760 eGFR if AFR NERISSA > 60 ml/min/1.73m2 Normal [facility] Comment on above: Result Comment: eGFR >= 60 Indicates normal kidney function. * eGFR IS AN ESTIMATE * (AFR NERISSA = ) (non-AFR AM = NON-) MDRD calculation used in the eGFR should not be used to dose medications. For further limitations of the eGFR please refer to the Physician Website or the National Kidney Disease Education Program website (www.nkdep.nih.gov). Performed By: #### L 304.0140, L100.0040, L100.0005 #### [facility] LABORATORY [address] [place] [address] 55366 eGFR nonAFR Nerissa > 60 ml/Min/1.73m2 Normal [facility] Comment on above: Performed By: #### L 304.0140, L100.0040, L100.0005 #### ML - LABORATORY [address] [place] [address] 26330 Globulin (S) [Mass/Vol] 2.6 g/dL Normal 1.5-4.5 [facility] Comment on above: Performed By: #### L 304.0140, L100.0040, L100.0005 #### ML - LABORATORY [address] [place] [address] 70472 Glucose [Mass/Vol] 99 mg/dL Normal 74-106 [facility] Comment on above: Performed By: #### L 304.0140, L100.0040, L100.0005 #### ML - LABORATORY [address] [place] [address] 38367 Potassium [Moles/Vol] 4.7 mmol/L Normal 3.5-5.0 [facility] Comment on above: Performed By: #### L 304.0140, L100.0040, L100.0005 #### ML - LABORATORY [address] [place] [address] 77504 Protein [Mass/Vol] 7.5 g/dL Normal 6.4-8.3 [facility] Comment on above: Performed By: #### L 304.0140, L100.0040, L100.0005 #### ML - LABORATORY [address] [place] [address] 67625 Sodium [Moles/Vol] 139 mmol/L Normal 135-145 [facility] Comment on above: Performed By: #### L 304.0140, L100.0040, L100.0005 #### ML - LABORATORY [address] [place] [address] 30320 Urea nitrogen [Mass/Vol] 16 mg/dL Normal 6-20 [facility] Comment on above: Performed By: #### L 304.0140, L100.0040, L100.0005 #### ML - LABORATORY [address] [place] [address] 14092 Comprehensive metabolic 2000 panelon 10-18-2021 Albumin [Mass/Vol] 4.9 g/dL 3.5 - 5.2 g/dL [facility] Albumin/Globulin [Mass ratio] 1.88 {ratio} 1.1 - 2.5 [facility] ALP [Catalytic activity/Vol] 105 U/L 35 - 105 U/L [facility] ALT [Catalytic activity/Vol] 40 U/L High 5 - 33 U/L [facility] Anion gap [Moles/Vol] 19.7 mmol/L 15 - 22 mmol/L [facility] AST [Catalytic activity/Vol] 24 U/L 5 - 32 U/L [facility] Bilirubin [Mass/Vol] 0.6 mg/dL 0.2 - 1.2 mg/dL [facility] Calcium [Mass/Vol] 10.1 mg/dL High 8.6 - 10. 0 mg/dL [facility] Chloride [Moles/Vol] 103 mmol/L 98 - 107 mmol/L [facility] CO2 [Moles/Vol] 21 mmol/L Low 22 - 29 mmol/L [facility] Creatinine [Mass/Vol] 0.73 mg/dL 0.50 - 0.90 mg/dL [facility] eGFR-All Other Races > 60 ml/Min/1.73m2 [facility] GFR/1.73 sq M.predicted among blacks MDRD (S/P/Bld) [Vol rate/Area] mL/min/{1.73_m2} [facility] Globulin (S) [Mass/Vol] 2.6 g/dL 1.5 - 4.5 g/dL [facility] Glucose [Mass/Vol] 99 mg/dL 74 - 106 mg/dL [facility] Potassium [Moles/Vol] 4.7 mmol/L 3.5 - 5.0 mmol/L [facility] Protein [Mass/Vol] 7.5 g/dL 6.4 - 8.3 g/dL [facility] Sodium [Moles/Vol] 139 mmol/L 135 - 145 mmol/L [facility] Urea nitrogen [Mass/Vol] 16 mg/dL 6 - 20 mg/dL [facility] LIPID PANELon 10-18-2021 Cholesterol [Mass/Vol] 259 mg/dL High 130-200 [facility] Comment on above: Performed By: #### L 304.0140, L100.0040, L100.0005 #### ML - LABORATORY [address] [place] [address] 84886 Cholesterol in HDL [Mass/Vol] 69 mg/dL Normal [facility] Comment on above: Result Comment: [place] onal Cholesterol Education Program (NCEP) guidelines: <40 mg/dL: Low HDL-Cholesterol(major risk factor for CHD) > or = 60 mg/dL: High HDL-Cholesterol(negative risk factor for CHD) HDL-cholesterol is affected by a number of factors, e.g., smoking, exercise, hormones, sex, and age. 4th Generation Test; Results may be approximately 7% lower than previous values. Performed By: #### L 304.0140, L100.0040, L100.0005 #### ML - LABORATORY [address] [place] [address] 22255 Cholesterol in LDL [Mass/Vol] 175 mg/dL Normal [facility] Comment on above: Result Comment: LDL: OPTIMAL FOR PEOPLE AT VERY HIGH RISK <70 OPTIMAL <100 NEAR OPTIMAL 100-129 BORDERLINE HIGH 130-159 HIGH 160-189 VERY HIGH >=190 Source: 2008 NCEP ATP III, ADA Guidelines Reviewed: September, Performed By: #### L 304.0140, L100.0040, L100.0005 #### ML - LABORATORY [address] [place] [address] 76081 Cholesterol in VLDL [Mass/Vol] 15 mg/dL Normal 6-40 [facility] Comment on above: Performed By: #### L 304.0140, L100.0040, L100.0005 #### ML - LABORATORY [address] [place] [address] 76394 LDL/HDL RATIO 2.5 Normal [facility] Comment on above: Performed By: #### L 304.0140, L100.0040, L100.0005 #### ML - LABORATORY [address] [place] [address] 89916 Triglyceride [Mass/Vol] 75 mg/dL Normal [facility] Comment on above: Result Comment: TRIG : DESIRABLE: <150 mg/dL Performed By: #### L 304.0140, L100.0040, L100.0005 #### ML - [facility] [address] [place] [address] LIPID PANEL BASICon 10-19-19 22 Cholesterol [Mass/Vol] 259 mg/dL High 130 - 200 mg/dL [facility] Cholesterol in HDL [Mass/Vol] 69 mg/dL [facility] Cholesterol in LDL [Mass/Vol] 175 mg/dL [facility] LDL:HDL Ratio 2.5 [facility] Triglyceride [Mass/Vol] 75 mg/dL [facility] VLDL Cholesterol 15 mg/dL 6 - 40 mg/dL [facility] TSHon 10-18-2021 TSH 1.97 uIU/mL Normal 0.270-4.200 [facility] Comment on above: Performed By: #### L 304.0140, L100.0040, L100.0005 #### ML - [facility] [address] [place] [address] TSH Qnon 10-18-2021 TSH 1.97 uIU/mL 0.270 - 4.200 uIU/mL [facility] RADIOLOGYon 06-23-2021 RADIOLOGY [place] [address] Patient: WILFRIDO DURAN I. Phone#: : [phone] Age: 50 Gender: F Pt. Type: Out Account: [id number] Location: Ordering: CHELSEA HERNANDEZ Exam Date: 06/09/2021/9:13 Family Phys: PRATIK REECE Charge Code: 516073 Physician: [place] Order #: DLP Dose#: PROCEDURE: BILATERAL SCREENING BREAST TOMOSYNTHESIS MAMMOGRAM WITH CAD COMPARISON: [facility], March 25, 2020. INDICATIONS: Screening. BREAST COMPOSITION: Scattered fibroglandular densities(25-50% glandular). FINDINGS: DIAGNOSTIC CATEGORY 1--NEGATIVE NO CHANGE FROM COMPARISON ASSESSMENT. RIGHT BREAST: No significant suspicious finding. No significant change has occurred. LEFT BREAST: No significant suspicious finding. No significant change has occurred. RECOMMENDATIONS: ROUTINE MAMMOGRAM AND CLINICAL EVALUATION IN 12 MONTHS. PLEASE NOTE: A NORMAL MAMMOGRAM DOES NOT EXCLUDE THE POSSIBILITY OF BREAST CANCER. A CLINICALLY SUSPICIOUS PALPABLE LUMP SHOULD BE BIOPSIED. THIS FACILITY UTILIZES A REMINDER SYSTEM TO ENSURE THAT ALL PATIENTS RECEIVE REMINDER LETTERS FOR APPOINTMENTS. THIS INCLUDES REMINDERS FOR ROUTINE MAMMOGRAMS, DIAGNOSITC MAMMOGRAMS, OR OTHER BREAST IMAGING INTERVENTIONS WHEN APPROPRIATE. THIS PATIENT WILL BE PLACED IN THE APPROPRIATE REMINDER SYSTEM. Dictated by: Evelyn Teran MD on 06/23/2021 at 10:44 Approved by: Evelyn Teran MD on 06/23/2021 at 10:58 Normal [facility] US ABD LTD SINGLE ORGANon US ABD LTD SINGLE ORGAN [place] [id number] Name: WILFRIDO DURAN Phys: NACHO GUERRERO : [birth year] Age: 50 Sex: F Acct: [id number] Loc: RAD US Exam Date: 01/20/21 Status: REG CLI Radiology No.: [id number] Unit Number: [id number] Exam # Type/Exam [id number] US / US ABD LTD SINGLE ORGAN EXAMINATION: LIMITED ABDOMINAL ULTRASOUND01/20/2021 10:09 am ABDOMEN LIMITED COMPARISON: None HISTORY: Right upper quadrant pain FINDINGS: The liver is normal in size and echogenicity. No focal lesions are seen. There is no intra or extrahepatic bile duct dilatation. The common duct is a maximum of 8.4 mm Shadowing calculi seen in the neck of the gallbladder. No sonographic Ochoa's sign. The visualized pancreas is normal in size and echogenicity. No ascites is seen in Lawrence's pouch. The right kidney shows no pelvocaliectasis. IMPRESSION: Cholelithiasis with stones lodged in the neck of the gallbladder. The common duct is dilated. If there is concern for choledocholithiasis, MRCP advised Electronically signed By Santos Loving 01/20/2021 10:38:11 AM EST Workstation ID : [id number] < > Reported By: SANTOS LOVING M.D. Signed In Fluency By: SANTOS LOVING M.D. << Signature on File>> Reported By: SANTOS LOVING M.D. Signed By: SANTOS LOVING M.D. Tests performed at: [address] [address] Normal [facility] CBCon 10-08-2020 BASO# 0.10 x10(3) Normal 0.00-0.10 [facility] Comment on above: Performed By: #### L 200.0010 #### ML - LABORATORY [address] [place] [address] 66043 Basophils/100 WBC (Bld) 1.0 % Normal 0.0-1.0 [facility] Comment on above: Performed By: #### L 200.0010 #### ML - [facility] [address] [place] [address] 09388 EOS# 0.20 x10(3) Normal 0.00-0.54 [facility] Comment on above: Performed By: #### L 200.0010 #### ML - [facility] [address] [place] [address] 11268 Eosinophils/100 WBC (Bld) 3.2 % Normal 0.5-4.9 [facility] Comment on above: Performed By: #### L 200.0010 #### ML - [facility] [address] [place] [address] 46057 Erythrocyte distribution width (RBC) [Ratio] 12.7 % Normal 12.5-15.7 [facility] Comment on above: Performed By: #### L 200.0010 #### ML - LABORATORY [address] [place] [address] 16495 Hematocrit (Bld) [Volume fraction] 41.7 % Normal 36.0-48.0 [facility] Comment on above: Performed By: #### L 200.0010 #### ML - [facility] [address] [place] [address] 33412 Hemoglobin (Bld) [Mass/Vol] 14.0 g/dL Normal 12.0-16.0 [facility] Comment on above: Performed By: #### L 200.0010 #### ML - [facility] [address] [place] [address] 57065 LYMPH# 2.00 x10(3) Normal 1.00-3.50 [facility] Comment on above: Performed By: #### L 200.0010 #### [facility] [address] [place] [address] 48910 Lymphocytes/100 WBC (Bld) 37.0 % Normal 16.0-48.0 [facility] Comment on above: Performed By: #### L 200.0010 #### ML [facility] LAB[facility]ATORY [address] [place] [address] 99000 MCH (RBC) [Entitic mass] 32.0 pg Normal 28.5-32.9 [facility] Comment on above: Performed By: #### L 200.0010 #### ML [facility] [address] [place] [address] 62787 MCHC (RBC) [Mass/Vol] 33.5 g/dL Normal 33.0-36.0 [facility] Comment on above: Performed By: #### L 200.0010 #### ML [facility] [address] [place] [address] 68631 MCV (RBC) [Entitic vol] 95.2 fL Normal 80.0-99.0 [facility] Comment on above: Performed By: #### L 200.0010 #### [facility] [address] [place] [address] 92130 MONO# 0.50 x10(3) Normal 0.30-0.80 [facility] Comment on above: Performed By: #### L 200.0010 #### [facility] [address] [place] [address] 65688 Monocytes/100 WBC (Bld) 8.3 % Normal 4.3-11.2 [facility] Comment on above: Performed By: #### L 200.0010 #### [facility] [address] [place] [address] 47006 NEUT# 2.80 x10(3) Normal 1.40-6.50 [facility] Comment on above: Performed By: #### L 200.0010 #### [facility] [address] [place] [address] 57870 Neutrophils/100 WBC (Bld) 50.5 % Normal 45.0-73.0 [facility] Comment on above: Performed By: #### L 200.0010 #### [facility] [address] [place] [address] 49188 Platelet mean volume (Bld) [Entitic vol] 8.3 fL Normal 7.5-9.5 [facility] Comment on above: Performed By: #### L 200.0010 #### [facility] [address] [place] [address] 89664 PLT 303 X10(3) Normal 150-450 [facility] Comment on above: Performed By: #### L 200.0010 #### [facility] [address] [place] [address] 08760 RBC 4.38 x10(6) Normal 3.30-5.00 [facility] Comment on above: Performed By: #### L 200.0010 #### ML [facility] [address] [place] [address] 58153 WBC 5.4 x10(3) Normal 4.5-10.0 [facility] Comment on above: Performed By: #### L 200.0010 #### [facility] [address] [place] [address] 95475 CMPon 10-08-2020 A:G RATIO 1.96 Normal 1.1-2.5 [facility] Comment on above: Performed By: #### L 100.0005, L304.0140, L100.0040 #### [facility] [address] [place] [address] 40746 Albumin [Mass/Vol] 4.9 g/dL Normal 3.5-5.2 [facility] Comment on above: Performed By: #### L 100.0005, L304.0140, L100.0040 #### [facility] [address] [place] [address] 50906 ALK. PHOS 73 U/L Normal 35-105 [facility] Comment on above: Performed By: #### L 100.0005, L304.0140, L100.0040 #### [facility] [address] [place] [address] 21344 ALT [Catalytic activity/Vol] 30 U/L Normal 5-33 [facility] Comment on above: Performed By: #### L 100.0005, L304.0140, L100.0040 #### [facility] [address] [place] [address] 47944 Anion gap [Moles/Vol] 15.3 mmol/L Normal 15-22 [facility] Comment on above: Performed By: #### L 100.0005, L304.0140, L100.0040 #### [facility] [address] [place] [address] 87628 AST [Catalytic activity/Vol] 22 U/L Normal 5-32 [facility] Comment on above: Performed By: #### L 100.0005, L304.0140, L100.0040 #### [facility] [address] [place] [address] 48133 Bilirubin [Mass/Vol] 0.4 mg/dL Normal 0.2-1.2 [facility] Comment on above: Performed By: #### L 100.0005, L304.0140, L100.0040 #### [facility] [address] [place] [address] 89223 Calcium [Mass/Vol] 10.2 mg/dL High 8.6-10.0 [facility] Comment on above: Performed By: #### L 100.0005, L304.0140, L100.0040 #### [facility] [address] [place] [address] 34228 Chloride [Moles/Vol] 104 mmol/L Normal 98-107 [facility] Comment on above: Performed By: #### L 100.0005, L304.0140, L100.0040 #### [facility] [address] [place] [address] 02935 CO2 [Moles/Vol] 24 mmol/L Normal 22-29 [facility] Comment on above: Performed By: #### L 100.0005, L304.0140, L100.0040 #### [facility] [address] [place] [address] 31106 Creatinine [Mass/Vol] 0.74 mg/dL Normal 0.50-0.90 [facility] Comment on above: Performed By: #### L 100.0005, L304.0140, L100.0040 #### [facility] [address] [place] [address] 42447 eGFR if AFR NERISSA > 60 ml/min/1.73m2 Normal [facility] Comment on above: Result Comment: eGFR >= 60 Indicates normal kidney function. * eGFR IS AN ESTIMATE * (AFR NERISSA = ) (non-AFR AM = NON-) MDRD calculation used in the eGFR should not be used to dose medications. For further limitations of the eGFR please refer to the Physician Website or the National Kidney Disease Education Program website (www.nkdep.nih.gov). Performed By: #### L 100.0005, L304.0140, L100.0040 #### [facility] [address] [place] [address] 99036 eGFR nonAFR Nerissa > 60 ml/Min/1.73m2 Normal [facility] Comment on above: Performed By: #### L 100.0005, L304.0140, L100.0040 #### [facility] [address] [place] [address] 15101 Globulin (S) [Mass/Vol] 2.5 g/dL Normal 1.5-4.5 [facility] Comment on above: Performed By: #### L 100.0005, L304.0140, L100.0040 #### [facility] [address] [place] [address] 90831 Glucose [Mass/Vol] 104 mg/dL Normal 74-106 [facility] Comment on above: Performed By: #### L 100.0005, L304.0140, L100.0040 #### [facility] [address] [place] [address] 08287 Potassium [Moles/Vol] 5.3 mmol/L High 3.5-5.0 [facility] Comment on above: Performed By: #### L 100.0005, L304.0140, L100.0040 #### [facility] [address] [place] [address] 07887 Protein [Mass/Vol] 7.4 g/dL Normal 6.4-8.3 [facility] Comment on above: Performed By: #### L 100.0005, L304.0140, L100.0040 #### [facility] [address] [place] [address] 06671 Sodium [Moles/Vol] 138 mmol/L Normal 135-145 [facility] Comment on above: Performed By: #### L 100.0005, L304.0140, L100.0040 #### [facility] [address] [place] [address] 00469 Urea nitrogen [Mass/Vol] 12 mg/dL Normal 6-20 [facility] Comment on above: Performed By: #### L 100.0005, L304.0140, L100.0040 #### [facility] [address] [place] [address] 65062 LIPID PANELon 10-08-2020 Cholesterol [Mass/Vol] 265 mg/dL High 130-200 [facility] Comment on above: Performed By: #### L 100.0005, L304.0140, L100.0040 #### [facility] [address] [place] [address] 81416 Cholesterol in HDL [Mass/Vol] 73 mg/dL Normal [facility] Comment on above: Result Comment: [place] onal Cholesterol Education Program (NCEP) guidelines: <40 mg/dL: Low HDL-Cholesterol(major risk factor for CHD) > or = 60 mg/dL: High HDL-Cholesterol(negative risk factor for CHD) HDL-cholesterol is affected by a number of factors, e.g., smoking, exercise, hormones, sex, and age. 4th Generation Test; Results may be approximately 7% lower than previous values. Performed By: #### L 100.0005, L304.0140, L100.0040 #### [facility] [address] [place] [address] 47854 Cholesterol in LDL [Mass/Vol] 174 mg/dL Normal [facility] Comment on above: Result Comment: LDL: OPTIMAL FOR PEOPLE AT VERY HIGH RISK <70 OPTIMAL <100 NEAR OPTIMAL 100-129 BORDERLINE HIGH 130-159 HIGH 160-189 VERY HIGH >=190 Source: 2009 NCEP ATP III, ADA Guidelines Reviewed: September, Performed By: #### L 100.0005, L304.0140, L100.0040 #### [facility] [address] [place] [address] 41770 Cholesterol in VLDL [Mass/Vol] 18 mg/dL Normal 6-40 [facility] Comment on above: Performed By: #### L 100.0005, L304.0140, L100.0040 #### [facility] [address] [place] [address] 36630 LDL/HDL RATIO 2.4 Normal [facility] Comment on above: Performed By: #### L 100.0005, L304.0140, L100.0040 #### [facility] [address] [place] [address] 60140 Triglyceride [Mass/Vol] 92 mg/dL Normal [facility] Comment on above: Result Comment: TRIG : DESIRABLE: <150 mg/dL Performed By: #### L 100.0005, L304.0140, L100.0040 #### [facility] [address] [place] [address] 84425 TSHon 10-08-2020 TSH 2.16 uIU/mL Normal 0.27-4.20 [facility] Comment on above: Performed By: #### L 100.0005, L304.0140, L100.0040 #### [facility] [address] [place] [address] 89151 Vital Signs Date Time Vital Sign Value Performing Clinician Dwight sears 11-21-2022 08:51-0400 Body height 166.4 cm Cm Bailon DO Work Phone: [facility] 11-21-2022 08:51-0400 Body weight 91.63 kg Cm Nazzaro DO Work Phone: [facility] 11-21-2022 08:51-0400 Diastolic blood pressure 92 mm[Hg] Cm Quesadaaro DO Work Phone: [facility] 11-21-2022 08:51-0400 Heart rate 82 /min Cm Quesadaaro DO Work Phone: [facility] 11-21-2022 08:51-0400 SaO2% (BldA) [Mass fraction] 99 % Cm Quesadaaro DO Work Phone: [facility] 11-21-2022 08:51-0400 Systolic blood pressure 143 mm[Hg] Cm Quesadaaro DO Work Phone: [facility] Encounters Encounter Date Encounter Type Care Provider Facility Start: 03-23-2025 ambulatory [facility] Facility :[facility] Start: 02-13-2025 ambulatory AIMEE Jonesi ty:[id number] Start: 02-13-2025 End: 02-13-2025 Subsequent hospital visit by physician Screen [facility] Comment on above: Encounter for screen ing mammogram for malignant neoplasm of breast [Z12.31] Start: 08-30-2024 End: 08-30-2024 ambulatory PRATIK REECE Facility:[id number] Start: 02-08-2024 End: 02-08-2024 Telephone encounter Aimee Zendejas Work Phone: [facility] Start: 01-19-2024 End: 01-19-2024 Subsequent hospital visit by physician [facility] MAMMOGRAPHY Comment on above: Encounter for screen ing mammogram for malignant neoplasm of breast [Z12.31] Start: 11-25-2022 ambulatory CM Inna GARRETTBRANDENKAILEE Facil ity:UNI Start: 11-25-2022 End: 11-25-2022 Subsequent hospital visit by physician Provider [facility] Start: 11-21-2022 End: 11-21-2022 ambulatory PRATIK REECE Facility:[facility] Start: 11-21-2022 End: 11-21-2022 Patient encounter procedure Cm Bailon DO Work Phone: [facility] Comment on above: Encounter for gyneco logical examination (general) (routine) without abnormal findings (Primary Dx); Encounter for screening mammogram for malignant neoplasm of breast Start: 11-21-2022 End: 11-21-2022 Patient encounter status Cm Bailon DO Work Phone: [facility]ne[facility] Start: 10-27-2022 ambulatory NACHO Quintanilla lity:UNI Start: 10-27-2022 End: 10-27-2022 Subsequent hospital visit by physician Provider [facility] HOD Comment on above: Z00.00 Start: 10-18-2021 End: 10-18-2021 Subsequent hospital visit by physician Provider [facility] Comment on above: BLOOD WORK Start: 06-09-2021 End: 06-09-[address] [facility] Procedures Date Procedure Procedure Detail Performing Clinician Start: 08-30-2024 Lipid 1996 panel - S yanely or Plasma [facility] Start: 12-15-2023 Lipid 1996 panel - S yanely or Plasma [facility] Start: 11-25-2022 Screening digital br [place] tomos[facility] bi Cm Bailon DO Work Phone: Start: 10-27-2022 CBC + DIFF Provider C [facility] Start: 10-27-2022 Comprehensive metabo lic 2000 panel - Serum or Plasma Provider [facility] Start: 10-27-2022 Hemoglobin A1c/Hemoglobin.total in Blood Provider [facility] Start: 10-27-2022 LIPID PANEL BASIC Provi paul [facility] Start: 10-27-2022 T3 FREE BLD Provider C [facility] Start: 10-27-2022 T4 FREE/FREE THYROX Pro vider [facility] Start: 10-27-2022 TSH BLD Provider C [facility] Start: 10-27-2022 VITAMIN D 25 HYDROXY Pr ovider [facility] Start: 10-27-2022 Lipid 1996 panel - S yanely or Plasma Provider [facility] Start: 10-18-2021 CBC + DIFF Pratik Reece Work Phone: Start: 10-18-2021 Comprehensive metabo lic 2000 panel - Serum or Plasma Pratik Reece Work Phone: Start: 10-18-2021 LIPID PANEL BASIC Austin Reece Work Phone: Start: 10-18-2021 TSH BLD Pratik Reece Work Phone: Start: 03-25-2020 Mammography Provider C [facility] Plan of Treatment Date Care Activity Detail Author Start: 08-30-2029 Lipid panel Lipid Screening [facility] Start: 12-14-2028 Lipid panel Lipid Screening [facility] Start: 10-28-2027 Lipid 1996 panel - Serum or Plasma Lipid Screening [facility] Start: 10-28-2027 LIPID SCREEN LIPID SCREEN [facility] Start: 08-31-2027 Diabetes Screening Diabetes Screenin g [facility] Start: 12-14-2026 Diabetes Screening Diabetes Screenin [facility] Start: 10-18-2026 LIPID SCREEN LIPID SCREEN [facility] Start: 10-27-2025 DIABETES SCREEN DIABETES SCREEN [facility] Start: 10-27-2025 Diabetes Screening Diabetes Screenin g [facility] Start: 02-16-2025 Influenza vaccination Influenza Vacc ine (#1) [facility] Start: 01-18-2025 Screening for malign ant neoplasm of breast Mammogram Screening [facility] Start: 10-18-2024 DIABETES SCREEN DIABETES SCREEN [facility] Start: 04-09-2024 End: 04-09-2024 Patient encounter procedure 04/09/2024 1:40 PM EDT Appointment [address] [address] R92.1 Mammographic calcification found on diagnostic imaging of breast [facility] Comment on above: R92.1 Mammographic c alcification found on diagnostic imaging of breast Start: 02-17-2024 Influenza vaccination Influenza Vacc ine (#1) [facility] Start: 11-26-2023 Mammography Mammogram Screening [facility] Start: 11-26-2023 Screening for malign ant neoplasm of breast Mammogram Screening [facility] Start: 02-16-2023 Covid-19 Vaccine ( season) Covid-19 Vaccine ( season) [facility] Start: 02-16-2023 Influenza vaccination C [facility] Start: 06-18-2022 DEPRESSION ASSESSMENT DEPRESSION ASS ESSMENT [facility] Start: 02-16-2022 Influenza vaccination INFLUENZ A (Season Ended) [facility] Start: 08-16-2021 HPV TESTING HPV TESTING [facility] Start: 08-16-2021 PAP TESTING PAP TESTING [facility] Start: 08-16-2021 Screening for malign ant neoplasm of cervix Cervical Cancer Screening [facility] Start: 03-25-2021 Mammography MAMMOGRAM [facility] Start: 2018 Pneumococcal Vaccine : 50+ (1 of 1 - PCV) Pneumococcal Vaccine: 50+ (1 of 1 - PCV) [facility] Start: 2018 SHINGRIX VACCINE (1 of 2) SHINGRIX VACCINE (1 of 2) [facility] Start: 2013 COLOGUARD (FIT-DNA) COLOGUARD (FIT-D NA) [facility] Start: 2013 Colonoscopy COLONOSCOPY [facility] Start: 2013 COLORECTAL CANCER SCREENING COLORECTAL CANCER SCREENING [facility] Start: [address] COLONOGRAPHY [facility] Start: 2013 FECAL OCCULT BLOOD FECAL OCCULT BLOO D [facility] Start: 2013 Screening for malign ant neoplasm of colon [facility] Start: 2013 SIGMOIDOSCOPY SIGMOIDOSCOPY [facility] Start: 09-05-1987 Hepatitis B Vaccine (1 of 3 - 19+ 3-dose series) Hepatitis B Vaccine (1 of 3 - 19+ 3-dose series) [facility] Start: 09-05-1987 Urine microalbumin profile [facility] Start: 1986 ANNUAL PCP TEAM DISPATCH MANAGER CAIT DISEASE VISIT ANNUAL PCP TEAM CHRONIC DISEASE VISIT [facility] Start: 1986 Anxiety Screening Anxiety Screening [facility] Start: 1986 BP CONTROLLED (<130/80) BP CONTROLLE D (<130/80) [facility] Start: 1986 Depression Screening Depression Scre ening [facility] Start: 1986 HEPATITIS C SCREENING HEPATITIS C [facility] Start: 1986 Hepatitis C screening Hepatitis C [facility] Start: 1986 HIV SCREENING HIV SCREENING [facility] Start: 1986 HIV screening HIV Screening [facility] Start: 1980 Adult depression screening assessment DEPRESSION SCREENING [facility] Start: 1973 COVID-19 VACCINE (1) COVID-19 VACCIN E (1) [facility] Start: 03-07-1969 COVID-19 VACCINE (#1) COVID-19 VACCI NE (#1) [facility] Start: 1968 HEPATITIS B (1 of 3 - 3-dose series) HEPATITIS B (1 of 3 - 3-dose series) [facility] Start: 1968 Hepatitis B Vaccine (1 of 3 - 3-dose series) Hepatitis B Vaccine (1 of 3 - 3-dose series) [facility] End: 12-21-2023 HENRI SCREENING HENRI SCREENING Radiology Routine Encounter for screening mammogram for malignant neoplasm of breast 1 Occurrences starting 11/21/2022 until 12/21/[address] [facility] Work Phone: Comment on above: 1 Occurrences starti ng 11/21/2022 until [facility] Immunization Date Immunization Notes Care Provider Guanaco [facility]well 08-16-2016 influenza virus vacc ine, unspecified formulation Provider [facility] Payers Date Payer Category Payer Self-pay 2015 [employer] BLUE CARD PPO OOS [id number] 2015 Unknown [employer] BLUE CARD PPO OOS [id number] 2015-Present [phone] [address] [place] [address] PPO [id number] 2015 Unknown [employer] CARD PPO OOS [id number] 2015-Present [phone] [address] [place] [address] PPO [id number] 2015 Unknown [id number] 1961 Unknown [id number] Unknown [id number] Unknown [id number] Unknown [id number] Social History Date Type Detail Facility Start: 12-26-2010 Tobacco smoking stat [facility] Never smoked tobacco [facility] Start: 11-20-2017 End: 11-21-2022 Alcohol intake Current drinker of alcohol (finding) [facility] Start: 1970 Sex Assigned At Not on file [facility] Start: 12-26-2010 Tobacco use and exposure Smokeless tobacco non-user [facility] Work Phone: Start: 11-20-2017 End: 11-21-2022 History of Social function [facility] Start: 11-20-2017 End: 11-21-2022 Tobacco use panel [facility] Start: 05-19-2012 National Score (1-100), lower number is lower risk Not on file [facility] Functional Status Date Assessment Result Facility 04-29-2014 Are you deaf, or do you have serious difficulty hearing No 04/29/2014 9:47 AM Kathryn Washington MA No [facility] 04-29-2014 Are you blind, or do you have serious difficulty seeing, even when wearing glasses No 04/29/2014 9:47 AM Kathryn Washington MA No [facility] 04-29-2014 Do you have serious difficulty walking or climbing stairs No 04/29/2014 9:47 AM Kathryn Washington MA No [facility] 04-29-2014 Do you have difficul ty dressing or bathing No 04/29/2014 9:47 AM Kathryn Washington MA No [facility] 04-29-2014 Because of a physica l, mental, or emotional condition, do you have difficulty doing errands alone such as visiting a physician's office or shopping No 04/29/2014 9:47 AM Kathryn Washington MA No [facility] Mental Status Date Assessment Result Facility 04-29-2014 Because of a physica l, mental, or emotional condition, do you have serious difficulty concentrating, remembering, or making decisions No 04/29/2014 9:47 AM Kathryn Washington MA No [facility] History of Present illness Narrative 02-13-2025 Hollie Washington RT(R) - 02/13/2025 8:00 AM EDT Note Date & Type Note Facility 02-13-2025 History of Presen t illness Narrative Radiology Service Progress Note PATIENT NAME: Wilfrido Duran DATE OF SERVICE: February 13, 2025 TIME: 8:00 AM PATIENT IDENTITY VERIFICATION COMPLETED USING TWO (2) IDENTIFIERS: Name and Date of confirmed by patient verbally and Name and Date of confirmed by identification band. FALL SCREENING: Has the patient had 2 falls in the last year or 1 fall with injury or currently using an Ambulatory Assistive Device (Walker, Cane, Wheelchair, Crutches, etc.)? No PATIENT GENDER DATA: Assigned female at . status: : No status: NO. PATIENT RELEVANT IMPLANT DATA REVIEWED: Not Applicable PATIENT PRESENTS WITH AN IMPLANTABLE OR ATTACHED AIR SUPPORT CONTROL OFFICER: No RADIOLOGY DEPARTMENT: Mammography PERIPHERAL IV DATA: Not applicable SIGNED BY: RT Belgica(R) February 13, 2025 8:00 AM documented in this encounter [facility] Progress note 02-13-2025 Note Date & Type Note Facility 02-13-2025 Note HNO ID: [id number] Author: HOLLIE WASHINGTON RT(R) Service: ? Author Type: Technologist Type: Progress Notes Filed: 02/13/2025 08:00 Note Text: Radiology Service Progress Note PATIENT NAME: Wilfrido Duran DATE OF SERVICE: February 13, 2025 TIME: 8:00 AM PATIENT IDENTITY VERIFICATION COMPLETED USING TWO (2) IDENTIFIERS: Name and Date of confirmed by patient verbally and Name and Date of confirmed by identification band. FALL SCREENING: Has the patient had 2 falls in the last year or 1 fall with injury or currently using an Ambulatory Assistive Device (Walker, Cane, Wheelchair, Crutches, etc.)? No PATIENT GENDER DATA: Assigned female at . status: : No status: NO. PATIENT RELEVANT IMPLANT DATA REVIEWED: Not Applicable PATIENT PRESENTS WITH AN IMPLANTABLE OR ATTACHED AIR SUPPORT CONTROL OFFICER: No RADIOLOGY DEPARTMENT: Mammography PERIPHERAL IV DATA: Not applicable SIGNED BY: RT Belgica(R) February 13, 2025 8:00 AM [facility] Telephone encounter Note 02-08-2024 Telephone Encounter - Amari Lowe RT(R) - 02/08/2024 10:08 AM EDT Note Date & Type Note Facility 02-08-2024 Telephone encount er Note Phoned Wilfrido to schedule additional imaging appointment. She was not available; a message was left asking her to return my call. I scheduled her into the first available appointment, which is 04.09.2024 at 1340. [facility] Note 02-08-2024 Telephone Encounter - Amari Lowe RT(R) - 02/08/2024 10:08 AM EDT Note Date & Type Note Facility 02-08-2024 Miscellaneous Notes Formattin g of this note might be different from the original. Phoned Wilfrido to schedule additional imaging appointment. She was not available; a message was left asking her to return my call. I scheduled her into the first available appointment, which is 04.09.2024 at 1340. documented in this encounter [facility] History of Present illness Narrative 01-19-2024 Ana Laura Appiah RT(R) - 01/19/2024 10:00 AM EDT Note Date & Type Note Facility 01-19-2024 History of Presen t illness Narrative Radiology Service Progress Note PATIENT NAME: Wilfrido Duran DATE OF SERVICE: January 19, 2024 TIME: 10:02 AM PATIENT IDENTITY VERIFICATION COMPLETED USING TWO (2) IDENTIFIERS: Name and Date of confirmed by patient verbally and Name and Date of confirmed by identification band. FALL SCREENING: Has the patient had 2 falls in the last year or 1 fall with injury or currently using an Ambulatory Assistive Device (Walker, Cane, Wheelchair, Crutches, etc.)? No PATIENT GENDER DATA: Female. status: : No status: NO. PATIENT RELEVANT IMPLANT DATA REVIEWED: Not Applicable PATIENT PRESENTS WITH AN IMPLANTABLE OR ATTACHED AIR SUPPORT CONTROL OFFICER: No RADIOLOGY DEPARTMENT: Mammography PERIPHERAL IV DATA: Not applicable SIGNED BY: RT Benny(R) January 19, 2024 10:02 AM documented in this encounter [facility] Progress note 11-21-2022 Note Date & Type Note Facility 11-21-2022 Note HNO ID: [id number] Author: Cm Bailon, DO Service: ? Author Type: Physician Type: Progress Notes Filed: 11/21/2022 9:34 AM Note Text: Wilfrido is a 52 year old who presents for an annual gynecologic exam without complaints. Postmenopausal: Yes since age hysterectomy (vaginal) 2-3 y ago per patient with BSO for AUB-L HRT use: No. 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 Hypercholesterolemia past medical history 1996 colp/cryo/[facility]/[place] PAST SURGICAL HISTORY Procedure Laterality Date PAST SURGICAL HISTORY OF x 2/BTO PAST SURGICAL HISTORY OF 3 exp lap 1994 and later/endometriosis and ovarian cyst PAST SURGICAL HISTORY OF 06/18/2004 melenoma right jarvis REMOVAL GALLBLADDER 2020 TUBAL LIGATION HX VAGINAL HYSTERECTOMY 2019 FAMILY HISTORY Problem Relation Age of Onset Cancer Mother lung None Father other (uterine cancer) Sister HU, no radiation SOCIAL HISTORY Social History Tobacco Use Smoking status: Never Smokeless tobacco: Never Substance Use Topics Alcohol use: Yes Comment: two or three beers weekly Drug use: No REVIEW OF SYSTEMS Abdomen: No abdominal pain, nausea, vomiting, diarrhea, or constipation. No bloating, early satiety, indigestion, or increased flatulence. Bladder: No dysuria, gross hematuria, urinary frequency, urinary urgency, or incontinence Breast: No breast lumps, nipple d/c, overlying skin changes, redness or skin retraction Allergies and current medication updated:Yes EXAM: BP 143/92 Pulse 82 Ht 5' 5.5 (1.66m) Wt 202 lb (91.6kg) SpO2 99% LMP 11/07/2017 BMI 33.09 kg/(m2). GENERAL: pleasant, female in no apparent distress HEENT: Normocephalic, atraumatic, mucus membranes moist, and no lesions NECK: Supple, full range of motion, no adenopathy, and thyroid normal DERMATOLOGY: Normal, without lesions, non-icteric, and non-hirsute BREAST: soft, non-tender, symmetric, no dominant mass, normal nipple-areolar complex, no lymphadenopathy, and no nipple discharge CHEST: Normal inspiratory effort ABDOMEN: soft, non-tender, and no masses PELVIC: external genitalia normal, normal Bartholin's glands, urethra, Axis's glands, no vulvar lesions, no cervical lesions, good vaginal support, physiologic discharge present, normal appearing perineal body and perianal region BIMANUAL: uterus normal size, shape and consistency, no adnexal masses, and non-tender RECTOVAGINAL: deferred. NEURO: alert and oriented x3,exam grossly non-focal EXTREMITIES: normal ASSESSMENT/PLAN: 1) Health maintenance: Pap/HPV screening no longer needed Mammogram ordered 2) Follow up one year or sooner as needed This visit was chaperoned by Lakisha Bailon DO I spent a total of 30 minutes on the date of the service which included preparing to see the patient, [id number] patient care, completing clinical documentation, obtaining and/or reviewing separately obtained history, performing a medically appropriate examination, counseling and educating the patient/family/caregiver, and ordering medications, tests, or procedures. [facility] History of Present illness Narrative 11-21-2022 Cm Bailon DO - 11/21/2022 9:26 AM EDT Note Date & Type Note Facility 11-21-2022 History of Presen t illness Narrative Wilfrido is a 52 year old who presents for an annual gynecologic exam without complaints. Postmenopausal: Yes since age hysterectomy (vaginal) 2-3 y ago per patient with BSO for AUB-L HRT use: No. 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 Hypercholesterolemia past medical history 1996 colp/cryo/[place] PAST SURGICAL HISTORY Procedure Laterality Date PAST SURGICAL HISTORY OF x 2/BTO PAST SURGICAL HISTORY OF 3 exp lap 1994 and later/endometriosis and ovarian cyst PAST SURGICAL HISTORY OF 06/18/2004 melenoma right jarvis REMOVAL GALLBLADDER 2020 TUBAL LIGATION HX VAGINAL HYSTERECTOMY 2019 FAMILY HISTORY Problem Relation Age of Onset Cancer Mother lung None Father other (uterine cancer) Sister HU, no radiation SOCIAL HISTORY Social History Tobacco Use Smoking status: Never Smokeless tobacco: Never Substance Use Topics Alcohol use: Yes Comment: two or three beers weekly Drug use: No REVIEW OF SYSTEMS Abdomen: No abdominal pain, nausea, vomiting, diarrhea, or constipation. No bloating, early satiety, indigestion, or increased flatulence. Bladder: No dysuria, gross hematuria, urinary frequency, urinary urgency, or incontinence Breast: No breast lumps, nipple d/c, overlying skin changes, redness or skin retraction Allergies and current medication updated:Yes EXAM: BP 143/92 Pulse 82 Ht 5' 5.5 (1.66m) Wt 202 lb (91.6kg) SpO2 99% LMP 11/07/2017 BMI 33.09 kg/(m^2). GENERAL: pleasant, female in no apparent distress HEENT: Normocephalic, atraumatic, mucus membranes moist, and no lesions NECK: Supple, full range of motion, no adenopathy, and thyroid normal DERMATOLOGY: Normal, without lesions, non-icteric, and non-hirsute BREAST: soft, non-tender, symmetric, no dominant mass, normal nipple-areolar complex, no lymphadenopathy, and no nipple discharge CHEST: Normal inspiratory effort ABDOMEN: soft, non-tender, and no masses PELVIC: external genitalia normal, normal Bartholin's glands, urethra, Axis's glands, no vulvar lesions, no cervical lesions, good vaginal support, physiologic discharge present, normal appearing perineal body and perianal region BIMANUAL: uterus normal size, shape and consistency, no adnexal masses, and non-tender RECTOVAGINAL: deferred. NEURO: alert and oriented x3,exam grossly non-focal EXTREMITIES: normal ASSESSMENT/PLAN: 1) Health maintenance: Pap/HPV screening no longer needed Mammogram ordered 2) Follow up one year or sooner as needed This visit was chaperoned by Lakisha Bailon DO I spent a total of 30 minutes on the date of the service which included preparing to see the patient, [id number] patient care, completing clinical documentation, obtaining and/or reviewing separately obtained history, performing a medically appropriate examination, counseling and educating the patient/family/caregiver, and ordering medications, tests, or procedures. documented in this encounter [facility] Evaluation note Note Date & Type Note Facility Evaluation note Diagnosis Encounter for gynecological examination (general) (routine) without abnormal findings- Primary Encounter for screening mammogram for malignant neoplasm of breast Other screening mammogram documented in this encounter [facility] Reason for referral (narrative) Diagnostic Procedure Only (Routine) - Pending Review Note Date & Type Note Facility Reason for referral (narrati ve) Specialty Diagnoses / Procedures Referred By Sabas nesbitt Referred To Contact [facility] Diagnoses Encounter for screening mammogram for malignant neoplasm of breast Procedures [facility] SCREENING SCREENING MAMMOGRAPHY BI 2-VIEW BREAST INC Cm Champion DO [address] [place] [address] [facility] [address] [place] [address] Referral ID Status Reason Start Date Expiration Date Visits Requested Visits Authorized [id number] Pending Review Auto-Generat ed Referral 11/21/2022 12/21/2023 1 1 [facility] Summary Purpose Family History No Family History Records FoundNo Family History Records FoundNo Family History Records FoundNo Family History Records FoundNo Family History Records FoundNo Family History Records FoundNo Family History Records Found Advance Directives No Advanced Directives Records FoundNo Advanced Directives Records FoundNo Advanced Directives Records FoundNo Advanced Directives Records FoundNo Advanced Directives Records FoundNo Advanced Directives Records FoundNo Advanced Directives Records Found Additional Source Comments INFORMATION SOURCE (unrecogn ized section and content) DATE CREATED AUTHOR 10/20/2020 [facility] DATE CREATED AUTHOR AUTHOR'S ORGANIZ ATION 06/24/2021 [facility] DATE CREATED AUTHOR AUTHOR'S ORGANIZ ATION 10/25/2021 [facility] DATE CREATED AUTHOR AUTHOR'S ORGANIZ ATION 11/26/2022 [facility] DATE CREATED AUTHOR AUTHOR'S ORGANIZ ATION 11/26/2022 [facility] DATE CREATED AUTHOR AUTHOR'S ORGANIZ ATION 02/15/2025 [facility] DATE CREATED AUTHOR AUTHOR'S ORGANIZ ATION 03/10/2025 [facility] Source Comments (unrecognize d section and content) In the event this informatio n is protected by the Federal Confidentiality of Alcohol and Drug Abuse Patient Records regulations: The Federal rules restrict any use of the information to criminally investigate or prosecute any alcohol or drug abuse patient.[facility] the event this information is protected by the Federal Confidentiality of Alcohol and Drug Abuse Patient Records regulations: The Federal rules restrict any use of the information to criminally investigate or prosecute any alcohol or drug abuse patient.[facility] the event this information is protected by the Federal Confidentiality of Alcohol and Drug Abuse Patient Records regulations: The Federal rules restrict any use of the information to criminally investigate or prosecute any alcohol or drug abuse patient.[facility] the event this information is protected by the Federal Confidentiality of Alcohol and Drug Abuse Patient Records regulations: The Federal rules restrict any use of the information to criminally investigate or prosecute any alcohol or drug abuse patient.[facility] the event this information is protected by the Federal Confidentiality of Alcohol and Drug Abuse Patient Records regulations: The Federal rules restrict any use of the information to criminally investigate or prosecute any alcohol or drug abuse patient.[facility] the event this information is protected by the Federal Confidentiality of Alcohol and Drug Abuse Patient Records regulations: The Federal rules restrict any use of the information to criminally investigate or prosecute any alcohol or drug abuse patient.[facility] the event this information is protected by the Federal Confidentiality of Alcohol and Drug Abuse Patient Records regulations: The Federal rules restrict any use of the information to criminally investigate or prosecute any alcohol or drug abuse patient.[facility] Care Teams (unrecognized sec tion and content) Project Director Relationship Specialty Start Date End Date Pratik Reece [address] [place] [address] PCP - General Family Practice 11/16/11 Project Director Relationship Specialty Start Date End Date Pratik Reece [address] [place] [address] PCP - General Family Medicine 11/16/11 Project Director Relationship Specialty Start Date End Date Pratik Reece MD [address] [facility] [place] [address] PCP - General Family Medicine 11/16/11 Project Director Relationship Specialty Start Date End Date Pratik Reece MD [address] [facility] [place] [address] PCP - General Family Medicine 11/16/11 Project Director Relationship Specialty Start Date End Date Pratik Reece MD [address] [facility] [place] [address] PCP - General Family Medicine 11/16/11 Project Director Relationship Specialty Start Date End Date Pratik Reece MD [address] [facility] [place] [address] PCP - General Family Medicine 11/16/11 Reason for Visit (unrecogniz ed section and content) Reason Comments [place] Exam FOR RECORDS PERTAINING TO PATIENTS WHO ARE OR HAVE BEEN ENROLLED IN A CHEMICAL DEPENDENCY/SUBSTANCEABUSE PROGRAM, SOME INFORMATION MAY BE OMITTED. This clinical summary was aggregated from multiple sources. Caution should be exercised in using it in the provision of clinical care. This summary normalizes information from multiple sources, and as a consequence, information in this document may materially change the coding, format and clinical context of patient data. In addition, data may be omitted in some cases. CLINICAL DECISIONS SHOULD BE BASED ON THE PRIMARY CLINICAL RECORDS. [employer] provides no warranty or guarantee of the accuracy or completeness of information in this document.
--- OUTSIDE RECORDS SUMMARY | 2025-03-23 09:27 | XMS RPT_ITS | CCD ---
Author Organization [facility] Inform ion [facility] Care Team Providers Care Vp Product Management Name Role Phone DR PRATIK REECE Consulting Unavailable CHELSEA HERNANDEZ Attending Unavailable CHELSEA HERNANDEZ Primary Care Unavailable CHELSEA HERNANDEZ Admitting Unavailable PROVIDER, UNKNOWN Consulting Unavailable PROVIDER, UNKNOWN Consulting Unavailable PROVIDER, UNKNOWN Consulting Unavailable Pratik Reece Primary Care Provider [phone] Pratik Reece Primary Care Provider PRATIK REECE Primary Care Unavaila CM Espitia Attending Unavailable NACHO GUERRERO Attending Unavailable CM BAILON Attending Unavailable Pratik Reece MD Primary Care Provider Pratik Reece MD Primary Care Provider AIMEE ZENDEJAS Referring Unavailable PRATIK REECE Primary Care Unavaila PRATIK Mustafa Referring Unavaila PRATIK Mustafa Primary Care Unavaila Pratik Mustafa [facility] Unavailable Aimee Zendejas Referring Unavailable Aimee [...] * Physician Interpretation * * * * [place] [address] #[id number] - [facility] SCREENING W BETZY HISTORY: 54 year-old patient [...] if the patient has dense breast tissue. REF#[id number]. Interpreting Radiologist: Khloe Diaz M.D. Electronically signed on: 02/13/2025 Artist Mannequin Coloring: RACQUEL Transcribe Date/Time: Feb 13 2025 7:48A Dictated by : KHLOE DIAZ MD This examination was interpreted and the report reviewed and electronically signed by: KHLOE DIAZ MD on Feb 13 2025 11:38AM EST [id number] [facility] CBC W Auto Differential pane l (Bld)on 08-30-2024 Basophils (Bld) [#/Vol] 0.10 10*3/uL Normal <0.11 [facility] Comment on above: Order Comment: Speci men Type: BLOOD SPECIMEN Ordering Facility: PRATIK REECE M.D. (M4) Address: [address] [place] [address] Performed By: #### 5 7021-8 #### [facility] CLIA [id number] [address] [place] [address] [place] Basophils/100 WBC (Bld) 2.0 % [facility] Comment on above: Order Comment: Speci men Type: BLOOD SPECIMEN Ordering Facility: PRATIK REECE M.D. [place] [place] Address: [address] [place] [address] Performed By: #### 5 7021-8 #### [facility] CLIA [id number] [address] [place] [address] [place] Differential cell count method Nom (Bld) Auto [facility] Comment on above: Order Comment: Speci men Type: BLOOD SPECIMEN Ordering Facility: PRATIK REECE M.D. (M4) Address: [address] [place] [address] Performed By: #### 5 7021-8 #### [facility] CLIA [id number] [address] [place] [address] [place] Eosinophils (Bld) [#/Vol] 0.25 10*3/uL Normal <0.46 [facility] Comment on above: Order Comment: Speci men Type: BLOOD SPECIMEN Ordering Facility: PRATIK REECE M.D. (M4) Address: [address] [place] [address] Performed By: #### 5 7021-8 #### [facility] CLIA [id number] [address] [place] [address] [place] Eosinophils/100 WBC (Bld) 5.1 % [facility] Comment on above: Order Comment: Speci men Type: BLOOD SPECIMEN Ordering Facility: PRATIK REECE M.D. ([id number]) Address: [address] [place] [address] Performed By: #### 5 7021-8 #### [facility] CLIA [id number] [address] [place] [address] [place] Erythrocyte distribution width (RBC) [Ratio] 11.6 % Normal 11.5-15.0 [facility] Comment on above: Order Comment: Speci men Type: BLOOD SPECIMEN Ordering Facility: PRATIK REECE M.D. ([id number]) Address: [address] [place] [address] Performed By: #### 5 7021-8 #### [facility] CLIA [id number] [address] [place] [address] [place] Hematocrit (Bld) [Volume fraction] 43.1 % Normal 36.0-46.0 [facility] Comment on above: Order Comment: Speci men Type: BLOOD SPECIMEN Ordering Facility: PRATIK REECE M.D. ([id number]) Address: [address] [place] [address] Performed By: #### 5 7021-8 #### [facility] CLIA [id number] [address] [place] [address] [place] Hemoglobin (Bld) [Mass/Vol] 14.4 g/dL Normal 11.5-15.5 [facility] Comment on above: Order Comment: Speci men Type: BLOOD SPECIMEN Ordering Facility: PRATIK REECE M.D. ([id number]) Address: [address] [place] [address] Performed By: #### 5 7021-8 #### [facility] CLIA [id number] [address] [place] [address] [place] Immature granulocytes (Bld) [#/Vol] 10*3/uL Normal <0.10 [facility] Comment on above: Order Comment: Speci men Type: BLOOD SPECIMEN Ordering Facility: PRATIK REECE M.D. ([id number]) Address: [facility] [address] [place] [address] Performed By: #### 5 7021-8 #### [facility] CLIA [id number] [address] [place] [address] [place] Immature granulocytes/100 WBC (Bld) 0.0 % Normal [facility] Comment on above: Order Comment: Speci men Type: BLOOD SPECIMEN Ordering Facility: PRATIK REECE M.D. ([id number]) Address: [facility] [address] [place] [address] Performed By: #### 5 7021-8 #### [facility] CLIA [id number] [address] [place] [address] [place] Lymphocytes (Bld) [#/Vol] 2.05 10*3/uL Normal 1.00-4.00 [facility] Comment on above: Order Comment: Speci men Type: BLOOD SPECIMEN Ordering Facility: PRATIK REECE M.D. ([id number]) Address: [address] [place] [address] Performed By: #### 5 7021-8 #### [facility] CLIA [id number] [address] [place] [address] [place] Lymphocytes/100 WBC (Bld) 41.6 % Normal [facility] Comment on above: Order Comment: Speci men Type: BLOOD SPECIMEN Ordering Facility: PRATIK REECE M.D. ([id number]) Address: [facility] [address] [address] Performed By: #### 5 7021-8 #### [facility] CLIA [id number] [address] [place] [address] [place] MCH (RBC) [Entitic mass] 30.8 pg Normal 26.0-34.0 [facility] Comment on above: Order Comment: Speci men Type: BLOOD SPECIMEN Ordering Facility: PRATIK REECE M.D. ([id number]) Address: [facility] [address] [place] [address] Performed By: #### 5 7021-8 #### [facility] CLIA [id number] [address] [place], [place] [address] [place] MCHC (RBC) [Mass/Vol] 33.4 g/dL Normal 30.5-36.0 [facility] Comment on above: Order Comment: Speci men Type: BLOOD SPECIMEN Ordering Facility: PRATIK REECE M.D. (M4) Address: [address] [place] [address] Performed By: #### 5 7021-8 #### [facility] CLIA [id number] [address] [place] [address] [place] MCV (RBC) [Entitic vol] 92.1 fL Normal 80.0-100.0 [facility] Comment on above: Order Comment: Speci men Type: BLOOD SPECIMEN Ordering Facility: PRATIK REECE M.D. [place] [place] Address: [address] [place] [address] Performed By: #### 5 7021-8 #### [facility] CLIA [id number] [address] [place] [address] [place] Monocytes (Bld) [#/Vol] 0.41 10*3/uL Normal <0.87 [facility] Comment on above: Order Comment: Speci men Type: BLOOD SPECIMEN Ordering Facility: PRATIK REECE M.D. (M4) Address: [address] [place] [address] Performed By: #### 5 7021-8 #### [facility] CLIA [id number] [address] [place] [address] [place] Monocytes/100 WBC (Bld) 8.3 % Normal [facility] Comment on above: Order Comment: Speci men Type: BLOOD SPECIMEN Ordering Facility: PRATIK REECE M.D. ([id number]) Address: [address] [place] [address] Performed By: #### 5 7021-8 #### [facility] CLIA [id number] [address] [place], [place] [address] [place] Neutrophils (Bld) [#/Vol] 2.12 10*3/uL Normal 1.45-7.50 [facility] Comment on above: Order Comment: Speci men Type: BLOOD SPECIMEN Ordering Facility: PRATIK REECE M.D. ([id number]) Address: [address] [place] [address] Performed By: #### 5 7021-8 #### [facility] CLIA [id number] [address] [place] [address] [place] Neutrophils/100 WBC (Bld) 43.0 % Normal [facility] Comment on above: Order Comment: Speci men Type: BLOOD SPECIMEN Ordering Facility: PRATIK REECE M.D. ([id number]) Address: [address] [place] [address] Performed By: #### 5 7021-8 #### [facility] CLIA [id number] [address] [place] [address] [place] Nucleated RBC (Bld) [#/Vol] 10*3/uL Normal <0.01 [facility] Comment on above: Order Comment: Speci men Type: BLOOD SPECIMEN Ordering Facility: PRATIK REECE M.D. ([id number]) Address: [address] [place] [address] Performed By: #### 5 7021-8 #### [facility] CLIA [id number] [address] [place] [address] [place] Nucleated RBC/100 WBC (Bld) [Ratio] 0.0 /100 WBC Normal [facility] Comment on above: Order Comment: Speci men Type: BLOOD SPECIMEN Ordering Facility: PRATIK REECE M.D. ([id number]) Address: [address] [place] [address] Performed By: #### 5 7021-8 #### [facility] CLIA [id number] [address] [place] [address] [place] Platelet mean volume (Bld) [Entitic vol] 9.5 fL Normal 9.0-12.7 [facility] Comment on above: Order Comment: Speci men Type: BLOOD SPECIMEN Ordering Facility: PRATIK REECE M.D. ([id number]) Address: [facility] [address] [place] [address] Performed By: #### 5 7021-8 #### [facility] CLIA [id number] [address] [place] [address] [place] Platelets (Bld) [#/Vol] 312 10*3/uL Normal 150-400 [facility] Comment on above: Order Comment: Speci men Type: BLOOD SPECIMEN Ordering Facility: PRATIK REECE M.D. ([id number]) Address: [facility] [address] [place] [address] Performed By: #### 5 7021-8 #### [facility] CLIA [id number] [address] [place] [address] [place] RBC (Bld) [#/Vol] 4.68 10*6/uL Normal 3.90-5.20 [facility] Comment on above: Order Comment: Speci men Type: BLOOD SPECIMEN Ordering Facility: PRATIK REECE M.D. ([id number]) Address: [facility] [address] [place] [address] Performed By: #### 5 7021-8 #### [facility] CLIA [id number] [address] [place] [address] [place] WBC (Bld) [#/Vol] 4.93 10*3/uL Normal 3.70-11.00 [facility] Comment on above: Order Comment: Speci men Type: BLOOD SPECIMEN Ordering Facility: PRATIK REECE M.D. ([id number]) Address: [facility] [address] [place] [address] Performed By: #### 5 7021-8 #### [facility] CLIA [id number] [address] [place], [place] [address] [facility] [place] Comprehensive metabolic 2000 panelon 08-30-2024 Albumin [Mass/Vol] 4.8 g/dL Normal 3.9-4.9 [facility] Comment on above: Order Comment: Speci men Type: BLOOD SPECIMEN Ordering Facility: PRATIK REECE M.D. ([id number]) Address: [facility] [address] [place] [address] Performed By: #### 2 4323-8, 64281-7, 3 #### [facility] CLIA [id number] [address] [place] [address] [place] ALP [Catalytic activity/Vol] 83 U/L Normal 34-123 [facility] Comment on above: Order Comment: Speci men Type: BLOOD SPECIMEN Ordering Facility: PRATIK REECE M.D. ([id number]) Address: [facility] [address] [place] [address] Performed By: #### 2 4323-8, 76256-0, 3 #### [facility] CLIA [id number] [address] [place] [address] [place] ALT [Catalytic activity/Vol] 77 U/L High 7-38 [facility] Comment on above: Order Comment: Speci men Type: BLOOD SPECIMEN Ordering Facility: PRATIK REECE M.D. ([id number]) Address: [facility] [address] [place] [address] Performed By: #### 2 4323-8, 77208-0, 3 #### [facility] CLIA [id number] [address] [place] [address] [place] Anion gap [Moles/Vol] 10 mmol/L Normal 8-15 [facility] Comment on above: Order Comment: Speci men Type: BLOOD SPECIMEN Ordering Facility: PRATIK REECE M.D. ([id number]) Address: [facility] [address] [place] [address] Performed By: #### 2 4323-8, 57921-6, 3 #### [facility] CLIA [id number] [address] [place] [address] [place] AST [Catalytic activity/Vol] 45 U/L High 13-35 [facility] Comment on above: Order Comment: Speci men Type: BLOOD SPECIMEN Ordering Facility: PRATIK REECE M.D. ([id number]) Address: [facility] [address] [place] [address] Performed By: #### 2 4323-8, 40173-0, 6-3 #### [facility] CLIA [id number] [address] [place] [address] [place] Bilirubin [Mass/Vol] 0.8 mg/dL Normal 0.2-1.3 [facility] Comment on above: Order Comment: Speci men Type: BLOOD SPECIMEN Ordering Facility: PRATIK REECE M.D. ([id number]) Address: [facility] [address] [place] [address] Performed By: #### 2 4323-8, 24510-6, 3015-3 #### [facility] CLIA [id number] [address] [place] [address] [place] Calcium [Mass/Vol] 10.0 mg/dL Normal 8.5-10.2 [facility] Comment on above: Order Comment: Speci men Type: BLOOD SPECIMEN Ordering Facility: PRATIK REECE M.D. ([id number]) Address: [facility] [address] [place] [address] Performed By: #### 2 4323-8, 28963-8, 3015-3 #### [facility] CLIA [id number] [address] [place] [address] [place] Chloride [Moles/Vol] 105 mmol/L Normal 98-107 [facility] Comment on above: Order Comment: Speci men Type: BLOOD SPECIMEN Ordering Facility: PRATIK REECE M.D. ([id number]) Address: [facility] [address] [place] [address] Performed By: #### 2 4323-8, 36189-3, 3015-3 #### [facility] CLIA [id number] [address] [place], [place] [address] [place] CO2 [Moles/Vol] 25 mmol/L Normal 22-30 [facility] Comment on above: Order Comment: Speci men Type: BLOOD SPECIMEN Ordering Facility: PRATIK REECE M.D. ([id number]) Address: [facility] [address] [place] [address] Performed By: #### 2 4323-8, 60976-6, 6-3 #### [facility] CLIA [id number] [address] [place], [place] [address] [place] Creatinine [Mass/Vol] 0.83 mg/dL Normal 0.58-0.96 [facility] Comment on above: Order Comment: Speci men Type: BLOOD SPECIMEN Ordering Facility: PRATIK REECE M.D. ([id number]) Address: [facility] [address] [place] [address] Performed By: #### 2 4323-8, 04593-4, 3 #### [facility] CLIA [id number] [address] [place] [address] [place] Creatinine and Glomerular filtration rate.predicted panel (S/P/Bld) 83 mL/min/1.73m??? Normal >=60 [facility] Comment on above: Order Comment: Speci men Type: BLOOD SPECIMEN Ordering Facility: PRATIK REECE M.D. ([id number]) Address: [facility] [address] [place] [address] Result Comment: Roslyn mated Glomerular Filtration Rate [...] actual GFR. Performed By: #### 2 4323-8, 68368-0, 3015-3 #### [facility] CLIA [id number] [address] [place], [place] [address] [place] Glucose [Mass/Vol] 100 mg/dL High 74-99 [facility] Comment on above: Order Comment: Speci edmundo Type: BLOOD SPECIMEN Ordering Facility: PRATIK REECE M.D. ([id number]) Address: [facility] [address] [place] [address] Result Comment: The [place] Diabetes Association (ADA) provides guidance for cutoff [...] Standards of Medical Care in Diabetes 2016, [place] [employer] Association. Diabetes Care. 2016.39(Suppl 1). Performed By: #### 2 4323-8, 67947-3, 3016-3 #### [facility] CLIA [id number] [address] [place] [address] [place] Potassium [Moles/Vol] 4.4 mmol/L Normal 3.7-5.1 [facility] Comment on above: Order Comment: Stacey wyatt Type: BLOOD SPECIMEN Ordering Facility: PRATIK REECE M.D. ([id number]) Address: [facility] [address] [place] [id number] Performed By: #### 2 4323-8, 89645-0, 3 #### [facility] CLIA [id number] [address] [place], [place] [address] [place] Protein [Mass/Vol] 7.6 g/dL Normal 6.3-8.0 [facility] Comment on above: Order Comment: Stacey wyatt Type: BLOOD SPECIMEN Ordering Facility: PRATIK REECE M.D. (M421) Address: [address] [place] [address] Performed By: #### 2 4323-8, 27693-1, 3 #### [facility] CLIA [id number] [address] [place] [address] [place] Sodium [Moles/Vol] 140 mmol/L Normal 136-144 [facility] Comment on above: Order Comment: Stacey wyatt Type: BLOOD SPECIMEN Ordering Facility: PRATIK REECE M.D. (M421) Address: [facility] [address] [place] [address] Performed By: #### 2 4323-8, 93671-8, 3016-3 #### [facility] CLIA [id number] [address] [place] [address] [place] Urea nitrogen [Mass/Vol] 10 mg/dL Normal 7-21 [facility] Comment on above: Order Comment: Specmurray wyatt Type: BLOOD SPECIMEN Ordering Facility: PRATIK REECE M.D. ([id number]) Address: [facility] [address] [place] [address] Performed By: #### 2 4323-8, 17774-5, 6-3 #### [facility] CLIA [id number] [address] [place] [address] [place] HbA1c (Bld)on 08-30-2024 Average glucose Estimated from glycated hemoglobin (Bld) [Mass/Vol] 120 mg/dL Normal [facility] Comment on above: Order Comment: Stacey wyatt Type: BLOOD SPECIMEN Ordering Facility: PRATIK REECE M.D. ([id number]) Address: [facility] [address] [place] [address] Result Comment: eAG: (Estimated average glucose) is a calculated value from HgbA1c and is operations representative of the average blood glucose level in the last 2-3 month period. Performed By: #### 5 5454-3 #### [facility] CLIA [id number] [address] [place] [address] [place] HbA1c (Bld) [Mass fraction] 5.8 % Normal 4.3-6.1 [facility] Comment on above: Order Comment: Stacey wyatt Type: BLOOD SPECIMEN Ordering Facility: PRATIK REECE M.D. ([id number]) Address: [facility] [address] [place] [address] Result Comment: [place] Diabetes Association guidelines indicate that patients with HgbA1c in the range 5.7-6.4% are at increased risk for development of diabetes, and intervention by lifestyle modification may be beneficial. HgbA1c greater or equal to 6.5% is considered diagnostic of diabetes. Performed By: #### 5 5454-3 #### [facility] CLIA [id number] [address] [place] [address] [place] Lipid 1996 panelon 5 Cholesterol [Mass/Vol] 240 mg/dL High <200 [facility] Comment on above: Order Comment: Speci men Type: BLOOD SPECIMEN Ordering Facility: PRATIK REECE M.D. ([id number]) Address: [facility] [address] [place] [address] Result Comment: <200 mg/dL, Desirable 200-239 mg/dL, Borderline high >239 mg/dL, High Performed By: #### 2 4323-8, 12429-5, 3016-3 #### [facility] CLIA [id number] [address] [place] [address] [place] Cholesterol in HDL [Mass/Vol] 55 mg/dL Normal >39 [facility] Comment on above: Order Comment: [facility] Type: BLOOD SPECIMEN Ordering Facility: PRATIK REECE M.D. ([id number]) Address: [facility] [address] [place] [address] Result Comment: 40-5 9 mg/dL, Acceptable >59 mg/dL, High: Negative risk factor for coronary heart disease <40 mg/dL, Low: Positive risk factor for coronary heart disease Performed By: #### 2 4323-8, 24013-8, 3016-3 #### [facility] CLIA [id number] [address] [place] [address] [place] Cholesterol in LDL [Mass/Vol] 162 mg/dL High <100 [facility] Comment on above: Order Comment: [facility] Type: BLOOD SPECIMEN Ordering Facility: PRATIK REECE M.D. ([id number]) Address: [address] [place] [address] Result Comment: <100 mg/dL, Optimal 100-129 mg/dL, Near optimal/above optimal 130-159 mg/dL, Borderline high 160-189 mg/dL, High >189 mg/dL, Very high Secondary prevention optimal LDL Cholesterol levels are recommended to be < 70 mg/dL Performed By: #### 2 4323-8, 62322-1, 3016-3 #### [facility] CLIA [id number] [address] [place], [place] [address] [place] Cholesterol in LDL/Cholesterol in HDL [Mass ratio] 2.95 {ratio} High <2.54 [facility] Comment on above: Order Comment: Speci men Type: BLOOD SPECIMEN Ordering Facility: PRATIK REECE M.D. (M421) Address: [address] [place] [address] Result Comment: Refe rence: 1. National Cholesterol Education Program ATP III Guideline At-A-Glance Quick Desk Reference: National Heart, Lung, and Blood Moon. National Institutes of Health. 2001: NIH Publication No. 01-3305. 2. An International Atherosclerosis Society position paper: global recommendations for the management of dyslipidemia: executive summary, Atherosclerosis. 2014: 232(2):410-413. Performed By: #### 2 4323-8, 23589-9, 6-3 #### [facility] CLIA [id number] [address] [place] [address] [place] Cholesterol in VLDL [Mass/Vol] 23 mg/dL Normal <30 [facility] Comment on above: Order Comment: Speci men Type: BLOOD SPECIMEN Ordering Facility: PRATIK REECE M.D. (M421) Address: [address] [place] [address] Performed By: #### 2 4323-8, 09698-5, 6-3 #### [facility] CLIA [id number] [address] [place], [place] [address] [place] Cholesterol non HDL [Mass/Vol] 185 mg/dL High <130 [facility] Comment on above: Order Comment: Speci men Type: BLOOD SPECIMEN Ordering Facility: PRATIK REECE M.D. (M421) Address: [address] [place] [address] Result Comment: <130 mg/dL, Optimal 130-159 mg/dL, Near optimal/above optimal 160-189 mg/dL, Borderline high 190-219 mg/dL, High >219 mg/dL, Very high Secondary prevention optimal non HDL Cholesterol levels are recommended to be <100 mg/dL Performed By: #### 2 4323-8, 89796-2, 3015-3 #### [facility] CLIA [id number] [address] [place] [address] [place] Cholesterol.total/C holesterol in HDL [Mass ratio] 4.36 {ratio} Normal <5.10 [facility] Comment on above: Order Comment: Speci men Type: BLOOD SPECIMEN Ordering Facility: PRATIK REECE M.D. ([id number]) Address: [address] [place] [address] Performed By: #### 2 4323-8, 70955-1, 3 #### [facility] CLIA [id number] [address] [place] [address] STATES [facility] FASTING TIME 17HRS Normal [facility] Comment on above: Order Comment: Speci men Type: BLOOD SPECIMEN Ordering Facility: PRATIK REECE M.D. ([id number]) Address: [address] [place] [address] Performed By: #### 2 4323-8, 77625-3, 3 #### [facility] CLIA [id number] [address] [place] [address] [place] [facility] Triglyceride [Mass/Vol] 113 mg/dL Normal <150 [facility] Comment on above: Order Comment: Speci men Type: BLOOD SPECIMEN Ordering Facility: PRATIK REECE M.D. ([id number]) Address: [address] [place] [address] Result Comment: <150 mg/dL, Normal 150-199 mg/dL, Borderline high 200-499 mg/dL, High >499 mg/dL, Very high Performed By: #### 2 4323-8, 65691-4, 3015-3 #### [facility] CLIA [id number] [address] [place] [address] [place] TSH SerPl-aCncon 08-30-2024 TSH Qn 1.960 m[IU]/L Normal 0.270-4.200 [facility] Comment on above: Order Comment: Speci men Type: BLOOD SPECIMEN Ordering Facility: PRATIK REECE M.D. 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 Allergies As of Date: 11/21/2022 (No Known Allergies) Date Reviewed: 11/21/2022 Reviewed by: Lakisha Salguero MA - Fully Assessed Reason for Visit: [facility] Exam [50] Primary Visit Diagnosis:Encounter for gynecological examination (general) (routine) without abnormal findings [Z01.419] Other Visit Diagnosis:Encounter for screening mammogram for malignant neoplasm of breast [Z12.31] Order(s):[facility] SCREENING [2595002] Order #: [id number] FUTURE Prescriptions as of 11/21/2022 - lisinopril (ZESTRIL) 10 mg tablet Take 10 mg by mouth once daily. - calcium carbonate/vitamin d3(CALCIUM 600 + D 600 MG-125 UNIT TAB) Take one(1) tablet twice daily. - DAILY MULTIVITAMIN TAB Take one(1) tablet daily. Problem List As Of Date 11/21/2022 Noted Resolved PERS HX MALIG SKIN MELANOMA [Z85.820] 02/12/2007 Abnormal Pap smear [NVY8162] 12/19/2011 Hypercholesteremia [E78.00] 02/18/2013 Benign essential HTN [I10] 08/16/2015 Intramural leiomyoma of (more content not included)... Normal [facility] KumI6Mqs 10-28-2022 HbA1c (Bld) [Mass fraction] 5.4 % Normal 4.3-6.1 [facility] Comment on above: Result Comment: Estimated Average Glucose: HgbA1C % mg/dL 4.0 68 5.0 97 6.0 125 7.0 154 8.0 183 9.0 212 10.0 240 Source: [place] web site, 2017. Performed By: #### L 200.2000 #### [facility] [address] [place] [address] 25-hydroxyvitamin D3 [Mass/V ol]on 10-27-2022 VITAMIN D 57.6 ng/mL 30 - 100 ng/mL [facility] CBCon 10-27-2022 BASO# 0.20 x10(3) High 0.00-0.10 [facility] Comment on above: Performed By: #### L 200.0010 #### ML - LABORATORY [address] [place] [address] 02438 Basophils/100 WBC (Bld) 3.4 % High 0.0-1.0 [facility] Comment on above: Performed By: #### L 200.0010 #### [facility] - [facility]AT[facility] [address] [place] [address] 56355 EOS# 0.30 x10(3) Normal 0.00-0.54 [facility] Comment on above: Performed By: #### L 200.0010 #### ML - LABORATORY [address] [place] [address] 77277 Eosinophils/100 WBC (Bld) 5.6 % High 0.5-4.9 [facility] Comment on above: Performed By: #### L 200.0010 #### [facility] [address] [place] [address] 52622 Erythrocyte distribution width (RBC) [Ratio] 12.4 % Low 12.5-15.7 [facility] Comment on above: Performed By: #### L 200.0010 #### ML - [facility]ATORY [address] [place] [address] 86683 Hematocrit (Bld) [Volume fraction] 43.0 % Normal 36.0-48.0 [facility] Comment on above: Performed By: #### L 200.0010 #### [facility] [address] [place] [address] 50776 Hemoglobin (Bld) [Mass/Vol] 14.8 g/dL Normal 12.0-16.0 [facility] Comment on above: Performed By: #### L 200.0010 #### [facility] [address] [place] [address] 43592 LYMPH# 1.90 x10(3) Normal 1.00-3.50 [facility] Comment on above: Performed By: #### L 200.0010 #### ML [facility] [address] [place] [address] 17634 Lymphocytes/100 WBC (Bld) 36.7 % Normal 16.0-48.0 [facility] Comment on above: Performed By: #### L 200.0010 #### ML [facility] [address] [place] [address] 93574 MCH (RBC) [Entitic mass] 31.5 pg Normal 28.5-32.9 [facility] Comment on above: Performed By: #### L 200.0010 #### ML [facility] [address] [place] [address] 24905 MCHC (RBC) [Mass/Vol] 34.4 g/dL Normal 33.0-36.0 [facility] Comment on above: Performed By: #### L 200.0010 #### ML [facility] [address] [place] [address] 97967 MCV (RBC) [Entitic vol] 91.4 fL Normal 80.0-99.0 [facility] Comment on above: Performed By: #### L 200.0010 #### [facility] [address] [place] [address] 48203 MONO# 0.40 x10(3) Normal 0.30-0.80 [facility] Comment on above: Performed By: #### L 200.0010 #### [facility] [address] [place] [address] 65730 Monocytes/100 WBC (Bld) 8.6 % Normal 4.3-11.2 [facility] Comment on above: Performed By: #### L 200.0010 #### [facility] [address] [place] [address] 33511 NEUT# 2.30 x10(3) Normal 1.40-6.50 [facility] Comment on above: Performed By: #### L 200.0010 #### [facility] [address] [place] [address] 06911 Neutrophils/100 WBC (Bld) 45.7 % Normal 45.0-73.0 [facility] Comment on above: Performed By: #### L 200.0010 #### [facility] - [facility] [address] [place] [address] Platelet mean volume (Bld) [Entitic vol] 8.1 fL Normal 7.5-9.5 [facility] Comment on above: Performed By: #### L 200.0010 #### ML - [facility] [address] [place] [address] 14761 PLT 287 X10(3) Normal 150-450 [facility] Comment on above: Performed By: #### L 200.0010 #### ML - LABORATORY [address] [place] [address] RBC 4.70 x10(6) Normal 3.30-5.00 [facility] Comment on above: Performed By: #### L 200.0010 #### ML - [facility] [address] [place] [address] 99324 WBC 5.1 x10(3) Normal 4.5-10.0 [facility] Comment on above: Performed By: #### L 200.0010 #### ML - [facility] [address] [place] [address] 53343 CBC W Auto Differential pane l (Bld)on 10-27-2022 BASO ABS 0.20 x10(3) High 0.00 - 0.10 x10(3) [facility] Basophils/100 WBC (Bld) 3.4 % High 0.0 - 1.0 % [facility] EOS ABS 0.30 x10(3) 0.00 - 0.54 x10(3) [facility] Eosinophils/100 WBC (Bld) 5.6 % High 0.5 - 4.9 % [facility] Erythrocyte distribution width (RBC) [Ratio] 12.4 % Low 12.5 - 15.7 % [facility] Hematocrit (Bld) [Volume fraction] 43.0 % 36.0 - 48.0 % [facility] Hemoglobin (Bld) [Mass/Vol] 14.8 g/dL 12.0 - 16.0 g/dL [facility] LYMPH ABS 1.90 x10(3) 1.00 - 3.50 x10(3) [facility] Lymphocytes/100 WBC (Bld) 36.7 % 16.0 - 48.0 % [facility] MCH (RBC) [Entitic mass] 31.5 pg 28.5 - 32.9 pg [facility] MCHC (RBC) [Mass/Vol] 34.4 g/dL 33.0 - 36.0 g/dL [facility] MCV (RBC) [Entitic vol] 91.4 fL 80.0 - 99.0 fl [facility] MONO ABS 0.40 x10(3) 0.30 - 0.80 x10(3) [facility] Monocytes/100 WBC (Bld) 8.6 % 4.3 - 11.2 % [facility] Neutrophil Ab 2.30 x10(3) 1.40 - 6.50 x10(3) [facility] Neutrophils/100 WBC (Bld) 45.7 % 45.0 - 73.0 % [facility] Platelet mean volume (Bld) [Entitic vol] 8.1 fL 7.5 - 9.5 fl [facility] Platelets (Bld) [#/Vol] 287 X10(3) 150 - 450 X10(3) [facility] RBC (Bld) [#/Vol] 4.70 x10(6) 3.30 - 5.0 0 x10(6) [facility] WBC (Bld) [#/Vol] 5.1 x10(3) 4.5 - 10.0 x10(3) [facility] CMPon 10-27-2022 A:G RATIO 1.88 Normal 1.1-2.5 [facility] Comment on above: Performed By: #### L 304.0162, L100.0040, L100.0005, L304.0297, L304.0140 #### [facility] - LABORATORY [address] [place] [address] Albumin [Mass/Vol] 5.1 g/dL Normal 3.5-5.2 [facility] Comment on above: Performed By: #### L 304.0162, L100.0040, L100.0005, L304.0297, L304.0140 #### ML [facility] [address] [place] [address] ALK. PHOS 95 U/L Normal 35-105 [facility] Comment on above: Performed By: #### L 304.0162, L100.0040, L100.0005, L304.0297, L304.0140 #### - LABORATORY [address] [place] [address] 92008 ALT [Catalytic activity/Vol] 67 U/L High 5-33 [facility] Comment on above: Performed By: #### L 304.0162, L100.0040, L100.0005, L304.0297, L304.0140 #### - LABORATORY [address] [place] [address] 61853 Anion gap [Moles/Vol] 17.6 mmol/L Normal 15-22 [facility] Comment on above: Performed By: #### L 304.0162, L100.0040, L100.0005, L304.0297, L304.0140 #### [facility] [address] [place] [address] 67850 AST [Catalytic activity/Vol] 34 U/L High - [facility] Comment on above: Performed By: #### L 304.0162, L100.0040, L100.0005, L304.0297, L304.0140 #### [facility] [address] [place] [address] 12576 Bilirubin [Mass/Vol] 0.6 mg/dL Normal 0.2-1.2 [facility] Comment on above: Performed By: #### L 304.0162, L100.0040, L100.0005, L304.0297, L304.0140 #### - LABORATORY [address] [place] [address] 68233 Calcium [Mass/Vol] 9.7 mg/dL Normal 8.6-10.0 [facility] Comment on above: Performed By: #### L 304.0162, L100.0040, L100.0005, L304.0297, L304.0140 #### [facility] [address] [place] [address] 15059 Chloride [Moles/Vol] 103 mmol/L Normal 98-107 [facility] Comment on above: Performed By: #### L 304.0162, L100.0040, L100.0005, L304.0297, L304.0140 #### - LABORATORY [address] [place] [address] CO2 [Moles/Vol] 22 mmol/L Normal 22-29 [facility] Comment on above: Performed By: #### L 304.0162, L100.0040, L100.0005, L304.0297, L304.0140 #### [facility] [address] [place] [address] 79884 Creatinine [Mass/Vol] 0.70 mg/dL Normal 0.50-0.90 [facility] Comment on above: Performed By: #### L 304.0162, L100.0040, L100.0005, L304.0297, L304.0140 #### [facility] [address] [place] [address] 89065 eGFR if AFR NERISSA > 60 ml/min/1.73m2 Normal [facility] Comment on above: Result Comment: eGFR >= [...] L 304.0162, L100.0040, L100.0005, L304.0297, L304.0140 #### [facility] [address] [place] [address] eGFR nonAFR Nerissa > 60 ml/Min/1.73m2 Normal [facility] Comment on above: Performed By: #### L 304.0162, L100.0040, L100.0005, L304.0297, L304.0140 #### - LABORATORY [address] [place] [address] 02612 Globulin (S) [Mass/Vol] 2.7 g/dL Normal 1.5-4.5 [facility] Comment on above: Performed By: #### L 304.0162, L100.0040, L100.0005, L304.0297, L304.0140 #### - LABORATORY [address] [place] [address] 06429 Glucose [Mass/Vol] 104 mg/dL Normal 74-106 [facility] Comment on above: Performed By: #### L 304.0162, L100.0040, L100.0005, L304.0297, L304.0140 #### [facility] [address] [place] [address] 89085 Potassium [Moles/Vol] 4.6 mmol/L Normal 3.5-5.0 [facility] Comment on above: Performed By: #### L 304.0162, L100.0040, L100.0005, L304.0297, L304.0140 #### [facility] [address] [place] [address] 74926 Protein [Mass/Vol] 7.8 g/dL Normal 6.4-8.3 [facility] Comment on above: Performed By: #### L 304.0162, L100.0040, L100.0005, L304.0297, L304.0140 #### - LABORATORY [address] [place] [address] 08127 Sodium [Moles/Vol] 138 mmol/L Normal 135-145 [facility] Comment on above: Performed By: #### L 304.0162, L100.0040, L100.0005, L304.0297, L304.0140 #### - LABORATORY [address] [place] [address] 95959 Urea nitrogen [Mass/Vol] 8 mg/dL Normal 6-20 [facility] Comment on above: Performed By: #### L 304.0162, L100.0040, L100.0005, L304.0297, L304.0140 #### [facility] [address] [place] [address] Comprehensive metabolic 2000 panelon 10-27-2022 Albumin [Mass/Vol] 5.1 g/dL 3.5 - 5.2 g/dL [facility] Albumin/Globulin [Mass ratio] 1.88 {ratio} 1.1 - 2.5 [facility] ALP [Catalytic activity/Vol] 95 U/L 35 - 105 U/L [facility] ALT [Catalytic activity/Vol] 67 U/L High 5 - 33 U/L [facility] Anion gap [Moles/Vol] 17.6 mmol/L 15 - 22 mmol/L [facility] AST [Catalytic activity/Vol] 34 U/L High 5 - 32 U/L [facility] Bilirubin [Mass/Vol] 0.6 mg/dL 0.2 - 1.2 mg/dL [facility] Calcium [Mass/Vol] 9.7 mg/dL 8.6 - 10. 0 mg/dL [facility] Chloride [Moles/Vol] 103 mmol/L 98 - 107 mmol/L [facility] CO2 [Moles/Vol] 22 mmol/L 22 - 29 mmol/L [facility] Creatinine [Mass/Vol] 0.70 mg/dL 0.50 - 0.90 mg/dL [facility] eGFR-All Other Races > 60 ml/Min/1.73m2 [facility] GFR/1.73 sq M.predicted among blacks MDRD (S/P/Bld) [Vol rate/Area] mL/min/{1.73_m2} [facility] Globulin (S) [Mass/Vol] 2.7 g/dL 1.5 - 4.5 g/dL [facility] Glucose [Mass/Vol] 104 mg/dL 74 - 106 mg/dL [facility] Potassium [Moles/Vol] 4.6 mmol/L 3.5 - 5.0 mmol/L [facility] Protein [Mass/Vol] 7.8 g/dL 6.4 - 8.3 g/dL [facility] Sodium [Moles/Vol] 138 mmol/L 135 - 145 mmol/L [facility] Urea nitrogen [Mass/Vol] 8 mg/dL 6 - 20 mg/dL [facility] FREE T3on 10-27-2022 Free T3 [Mass/Vol] 3.1 pg/mL Normal 2.0-4.4 [facility] Comment on above: Performed By: #### L 304.0162, L100.0040, L100.0005, L304.0297, L304.0140 #### - LABORATORY [address] [place] [address] 66967 Free T4on 10-27-2022 Free T4 [Mass/Vol] 1.03 ng/dL Normal 0.93-1.7 [facility] Comment on above: Performed By: #### L 304.0162, L100.0040, L100.0005, L304.0297, L304.0140 #### - LABORATORY [address] [place] [address] 89287 HbA1c (Bld)on 10-27-2022 HbA1c (Bld) [Mass fraction] 5.4 % 4.3 - 6.1 % [facility] LIPID PANELon 10-27-2022 Cholesterol [Mass/Vol] 262 mg/dL High 130-200 [facility] Comment on above: Performed By: #### L 304.0162, L100.0040, L100.0005, L304.0297, L304.0140 #### - LABORATORY [address] [place] [address] 27732 Cholesterol in HDL [Mass/Vol] 65 mg/dL Normal [facility] Comment on above: Result Comment: Harmony onal [...] L100.0040, L100.0005, L304.0297, L304.0140 #### - LABORATORY [address] [place] [address] 80951 Cholesterol in LDL [Mass/Vol] 178 mg/dL Normal [facility] Comment on above: Result Comment: LDL: OPTIMAL FOR PEOPLE AT VERY HIGH RISK <70 OPTIMAL <100 NEAR OPTIMAL 100-129 BORDERLINE HIGH 130-159 HIGH 160-189 VERY HIGH >=190 Source: 2009 NCEP ATP III, ADA Guidelines Reviewed: September, Performed By: #### L 304.0162, L100.0040, L100.0005, L304.0297, L304.0140 #### ML - [facility]ORY [address] [place] [address] 91062 Cholesterol in VLDL [Mass/Vol] 19 mg/dL Normal 6-40 [facility] Comment on above: Performed By: #### L 304.0162, L100.0040, L100.0005, L304.0297, L304.0140 #### ML - LAB[facility]ATORY [address] [place] [address] 17509 LDL/HDL RATIO 2.7 Normal [facility] Comment on above: Performed By: #### L 304.0162, L100.0040, L100.0005, L304.0297, L304.0140 #### ML - LABORATORY [address] [place] [address] Triglyceride [Mass/Vol] 97 mg/dL Normal [facility] Comment on above: Result Comment: TRIG : DESIRABLE: <150 mg/dL Performed By: #### L 304.0162, L100.0040, L100.0005, L304.0297, L304.0140 #### ML - [facility] [address] [place] [address] 89455 Lipid 1996 panelon Cholesterol [Mass/Vol] 262 mg/dL High 130 - 200 mg/dL [facility] Cholesterol in HDL [Mass/Vol] 65 mg/dL [facility] Cholesterol in LDL [Mass/Vol] 178 mg/dL [facility] LDL:HDL Ratio 2.7 [facility] Triglyceride [Mass/Vol] 97 mg/dL [facility] VLDL Cholesterol 19 mg/dL 6 - 40 mg/dL [facility] T3 FREE BLDon 10-27-2022 Free T3 [Mass/Vol] 3.1 pg/mL 2.0 - 4.4 pg/mL [facility] T4 FREE/FREE THYROXon 2022 Free T4 [Mass/Vol] 1.03 ng/dL 0.93 - 1. 7 ng/dL [facility] TSHon 10-27-2022 TSH 2.19 uIU/mL Normal 0.270-4.200 [facility] Comment on above: Performed By: #### L 304.0162, L100.0040, L100.0005, L304.0297, L304.0140 #### ML - LABORATORY [address] [place] [address] 02523 TSH BLDon 10-27-2022 TSH Qn 2.19 uIU/mL 0.270 - 4.200 uIU/mL [facility] VITAMIN Don 10-27-2022 VITAMIN D 57.6 ng/mL Normal 30-100 [facility] Comment on above: Performed By: #### L 304.0470 #### ML - LABORATORY [address] [place] [address] 90041 CBCon 10-18-2021 BASO# 0.10 x10(3) Normal 0.00-0.10 [facility] Comment on above: Performed By: #### L 200.0010 #### ML - [facility] [address] [place] [address] 71969 Basophils/100 WBC (Bld) 1.4 % High 0.0-1.0 [facility] Comment on above: Performed By: #### L 200.0010 #### ML - [facility] [address] [place] [address] 36552 EOS# 0.30 x10(3) Normal 0.00-0.54 [facility] Comment on above: Performed By: #### L 200.0010 #### ML [facility] [address] [place] [address] 07772 Eosinophils/100 WBC (Bld) 6.6 % High 0.5-4.9 [facility] Comment on above: Performed By: #### L 200.0010 #### ML - [facility]ORY [address] [place] [address] 01668 Erythrocyte distribution width (RBC) [Ratio] 12.3 % Low 12.5-15.7 [facility] Comment on above: Performed By: #### L 200.0010 #### ML - [facility]ORY [address] [place] [address] 96976 Hematocrit (Bld) [Volume fraction] 42.4 % Normal 36.0-48.0 [facility] Comment on above: Performed By: #### L 200.0010 #### ML - [facility]ORY [address] [place] [address] 02823 Hemoglobin (Bld) [Mass/Vol] 13.9 g/dL Normal 12.0-16.0 [facility] Comment on above: Performed By: #### L 200.0010 #### ML [facility] [address] [place] [address] 00511 LYMPH# 1.80 x10(3) Normal 1.00-3.50 [facility] Comment on above: Performed By: #### L 200.0010 #### ML - LAB[facility]ORY [address] [place] [address] 63054 Lymphocytes/100 WBC (Bld) 33.5 % Normal 16.0-48.0 [facility] Comment on above: Performed By: #### L 200.0010 #### ML [facility] [address] [place] [address] 48648 MCH (RBC) [Entitic mass] 30.2 pg Normal 28.5-32.9 [facility] Comment on above: Performed By: #### L 200.0010 #### ML - [facility] [address] [place] [address] 17293 MCHC (RBC) [Mass/Vol] 32.9 g/dL Low 33.0-36.0 [facility] Comment on above: Performed By: #### L 200.0010 #### ML [facility] [address] [place] [address] 89816 MCV (RBC) [Entitic vol] 92.0 fL Normal 80.0-99.0 [facility] Comment on above: Performed By: #### L 200.0010 #### ML - LAB[facility]ATORY [address] [place] [address] 93924 MONO# 0.50 x10(3) Normal 0.30-0.80 [facility] Comment on above: Performed By: #### L 200.0010 #### ML [facility] [address] [place] [address] 95758 Monocytes/100 WBC (Bld) 9.1 % Normal 4.3-11.2 [facility] Comment on above: Performed By: #### L 200.0010 #### ML - LABORATORY [address] [place] [address] 90298 NEUT# 2.60 x10(3) Normal 1.40-6.50 [facility] Comment on above: Performed By: #### L 200.0010 #### ML [facility] [address] [place] [address] 05324 Neutrophils/100 WBC (Bld) 49.4 % Normal 45.0-73.0 [facility] Comment on above: Performed By: #### L 200.0010 #### ML [facility] [address] [place] [address] 40603 Platelet mean volume (Bld) [Entitic vol] 7.8 fL Normal 7.5-9.5 [facility] Comment on above: Performed By: #### L 200.0010 #### ML [facility] [address] [place] [address] 72694 PLT 295 X10(3) Normal 150-450 [facility] Comment on above: Performed By: #### L 200.0010 #### ML [facility] [address] [place] [address] 12663 RBC 4.61 x10(6) Normal 3.30-5.00 [facility] Comment on above: Performed By: #### L 200.0010 #### ML [facility] [address] [place] [address] 51174 WBC 5.3 x10(3) Normal 4.5-10.0 [facility] Comment on above: Performed By: #### L 200.0010 #### ML - LABORATORY [address] [place] [address] 87708 CBC W Auto Differential pane l (Bld)on 10-18-2021 BASO ABS 0.10 x10(3) 0.00 - 0.10 x10(3) [facility] Basophils/100 WBC (Bld) 1.4 % High 0.0 - 1.0 % [facility] EOS ABS 0.30 x10(3) 0.00 - 0.54 x10(3) [facility] Eosinophils/100 WBC (Bld) 6.6 % High 0.5 - 4.9 % [facility] Erythrocyte distribution width (RBC) [Ratio] 12.3 % Low 12.5 - 15.7 % [facility] Hematocrit (Bld) [Volume fraction] 42.4 % 36.0 - 48.0 % [facility] Hemoglobin (Bld) [Mass/Vol] 13.9 g/dL 12.0 - 16.0 g/dL [facility] LYMPH ABS 1.80 x10(3) 1.00 - 3.50 x10(3) [facility] Lymphocytes/100 WBC (Bld) 33.5 % 16.0 - 48.0 % [facility] MCH (RBC) [Entitic mass] 30.2 pg 28.5 - 32.9 pg [facility] MCHC (RBC) [Mass/Vol] 32.9 g/dL Low 33.0 - 36.0 g/dL [facility] MCV (RBC) [Entitic vol] 92.0 fL 80.0 - 99.0 fl [facility] MONO ABS 0.50 x10(3) 0.30 - 0.80 x10(3) [facility] Monocytes/100 WBC (Bld) 9.1 % 4.3 - 11.2 % [facility] Neutrophil Ab 2.60 x10(3) 1.40 - 6.50 x10(3) [facility] Neutrophils/100 WBC (Bld) 49.4 % 45.0 - 73.0 % [facility] Platelet Count 295 X10(3) 150 - 450 X10(3) [facility] Platelet mean volume (Bld) [Entitic vol] 7.8 fL 7.5 - 9.5 fl [facility] RBC 4.61 x10(6) 3.30 - 5.00 x10(6) [facility] WBC 5.3 x10(3) 4.5 - 10.0 x10(3) [facility] CMPon 10-18-2021 A:G RATIO 1.88 Normal 1.1-2.5 [facility] Comment on above: Performed By: #### L 304.0140, L100.0040, L100.0005 #### [facility] - LABORATORY [address] [place] [id number] Albumin [Mass/Vol] 4.9 g/dL Normal 3.5-5.2 [facility] Comment on above: Performed By: #### L 304.0140, L100.0040, L100.0005 #### [facility] - LABORATORY [address] [place] [address] [id number] ALK. PHOS 105 U/L Normal 35-105 [facility] Comment on above: Performed By: #### L 304.0140, L100.0040, L100.0005 #### - LABORATORY [address] [place] [address] [id number] ALT [Catalytic activity/Vol] 40 U/L High 5-33 [facility] Comment on above: Performed By: #### L 304.0140, L100.0040, L100.0005 #### [facility] - LABORATORY [address] [place] [address] [id number] Anion gap [Moles/Vol] 19.7 mmol/L Normal 15- [facility] Comment on above: Performed By: #### L 304.0140, L100.0040, L100.0005 #### - LABORATORY [address] [place] [id number] AST [Catalytic activity/Vol] 24 U/L Normal -32 [facility] Comment on above: Performed By: #### L 304.0140, L100.0040, L100.0005 #### [facility] - LABORATORY [address] [place] [address] 32560 Bilirubin [Mass/Vol] 0.6 mg/dL Normal 0.2-1.2 [facility] Comment on above: Performed By: #### L 304.0140, L100.0040, L100.0005 #### ML - LABORATORY [address] [place] [address] Calcium [Mass/Vol] 10.1 mg/dL High 8.6-10.0 [facility] Comment on above: Performed By: #### L 304.0140, L100.0040, L100.0005 #### - LABORATORY [address] [place] [address] 59460 Chloride [Moles/Vol] 103 mmol/L Normal 98-107 [facility] Comment on above: Performed By: #### L 304.0140, L100.0040, L100.0005 #### [facility] [address] [place] [address] 36827 CO2 [Moles/Vol] 21 mmol/L Low 22-29 [facility] Comment on above: Performed By: #### L 304.0140, L100.0040, L100.0005 #### [facility] [address] [place] [address] 98624 Creatinine [Mass/Vol] 0.73 mg/dL Normal 0.50-0.90 [facility] Comment on above: Performed By: #### L 304.0140, L100.0040, L100.0005 #### [facility] [address] [place] [address] 80216 eGFR if AFR NERISSA > 60 ml/min/1.73m2 Normal [facility] Comment on above: Result Comment: eGFR >= [...] By: #### L 304.0140, L100.0040, L100.0005 #### [facility] [address] [place] [address] 13980 eGFR nonAFR Nerissa > 60 ml/Min/1.73m2 Normal U [facility] Comment on above: Performed By: #### L 304.0140, L100.0040, L100.0005 #### [facility] - LABORATORY [address] [place] [address] 14391 Globulin (S) [Mass/Vol] 2.6 g/dL Normal 1.5-4.5 [facility] Comment on above: Performed By: #### L 304.0140, L100.0040, L100.0005 #### [facility] - LABORATORY [address] [place] [address] 27472 Glucose [Mass/Vol] 99 mg/dL Normal 74-106 [facility] Comment on above: Performed By: #### L 304.0140, L100.0040, L100.0005 #### [facility] - LABORATORY [address] [place] [address] 33821 Potassium [Moles/Vol] 4.7 mmol/L Normal 3.5-5.0 [facility] Comment on above: Performed By: #### L 304.0140, L100.0040, L100.0005 #### [facility] - LABORATORY [address] [place] [address] 90424 Protein [Mass/Vol] 7.5 g/dL Normal 6.4-8.3 [facility] Comment on above: Performed By: #### L 304.0140, L100.0040, L100.0005 #### [facility] - LABORATORY [address] [place] [address] 31478 Sodium [Moles/Vol] 139 mmol/L Normal 135-145 [facility] Comment on above: Performed By: #### L 304.0140, L100.0040, L100.0005 #### [facility] - LABORATORY [address] [place] [address] 83698 Urea nitrogen [Mass/Vol] 16 mg/dL Normal 6-20 [facility] Comment on above: Performed By: #### L 304.0140, L100.0040, L100.0005 #### [facility] - LABORATORY [address] [place] [address] 51754 Comprehensive metabolic 2000 panelon 10-18-2021 Albumin [Mass/Vol] 4.9 g/dL 3.5 - 5.2 g/dL [facility] Albumin/Globulin [Mass ratio] 1.88 {ratio} 1.1 - 2.5 [facility] ALP [Catalytic activity/Vol] 105 U/L 35 - 105 U/L [facility] ALT [Catalytic activity/Vol] 40 U/L High 5 - 33 U/L [facility] Anion gap [Moles/Vol] 19.7 mmol/L 15 - 22 mmol/L [facility] AST [Catalytic activity/Vol] 24 U/L 5 - 32 U/L [facility] Bilirubin [Mass/Vol] 0.6 mg/dL 0.2 - 1.2 mg/dL [facility] Calcium [Mass/Vol] 10.1 mg/dL High 8.6 - 10. 0 mg/dL [facility] Chloride [Moles/Vol] 103 mmol/L 98 - 107 mmol/L [facility] CO2 [Moles/Vol] 21 mmol/L Low 22 - 29 mmol/L [facility] Creatinine [Mass/Vol] 0.73 mg/dL 0.50 - 0.90 mg/dL [facility] eGFR-All Other Races > 60 ml/Min/1.73m2 [facility] GFR/1.73 sq M.predicted among blacks MDRD (S/P/Bld) [Vol rate/Area] mL/min/{1.73_m2} [facility] Globulin (S) [Mass/Vol] 2.6 g/dL 1.5 - 4.5 g/dL [facility] Glucose [Mass/Vol] 99 mg/dL 74 - 106 mg/dL [facility] Potassium [Moles/Vol] 4.7 mmol/L 3.5 - 5.0 mmol/L [facility] Protein [Mass/Vol] 7.5 g/dL 6.4 - 8.3 g/dL [facility] Sodium [Moles/Vol] 139 mmol/L 135 - 145 mmol/L [facility] Urea nitrogen [Mass/Vol] 16 mg/dL 6 - 20 mg/dL [facility] LIPID PANELon 10-18-2021 Cholesterol [Mass/Vol] 259 mg/dL High 130-200 [facility] Comment on above: Performed By: #### L 304.0140, L100.0040, L100.0005 #### [facility] - LABORATORY [address] [place] [address] 76119 Cholesterol in HDL [Mass/Vol] 69 mg/dL Normal [facility] Comment on above: Result Comment: Harmony onal [...] 304.0140, L100.0040, L100.0005 #### [facility] - LABORATORY [address] [place] [address] 73552 Cholesterol in LDL [Mass/Vol] 175 mg/dL Normal [facility] Comment on above: Result Comment: LDL: OPTIMAL FOR PEOPLE AT VERY HIGH RISK <70 OPTIMAL <100 NEAR OPTIMAL 100-129 BORDERLINE HIGH 130-159 HIGH 160-189 VERY HIGH >=190 Source: 2008 NCEP ATP III, ADA Guidelines Reviewed: September, Performed By: #### L 304.0140, L100.0040, L100.0005 #### [facility] - [facility]ATORY [address] [place] [address] 43787 Cholesterol in VLDL [Mass/Vol] 15 mg/dL Normal 6-40 [facility] Comment on above: Performed By: #### L 304.0140, L100.0040, L100.0005 #### [facility] - LABORATORY [address] [place] [address] 44106 LDL/HDL RATIO 2.5 Normal [facility] Comment on above: Performed By: #### L 304.0140, L100.0040, L100.0005 #### [facility] - LAB[facility]ATORY [address] [place] [address] 92111 Triglyceride [Mass/Vol] 75 mg/dL Normal [facility] Comment on above: Result Comment: TRIG : DESIRABLE: <150 mg/dL Performed By: #### L 304.0140, L100.0040, L100.0005 #### [facility] [address] [place] [address] LIPID PANEL BASICon 10-19-19 22 Cholesterol [Mass/Vol] 259 mg/dL High 130 - 200 mg/dL [facility] Cholesterol in HDL [Mass/Vol] 69 mg/dL [facility] Cholesterol in LDL [Mass/Vol] 175 mg/dL [facility] LDL:HDL Ratio 2.5 [facility] Triglyceride [Mass/Vol] 75 mg/dL [facility] VLDL Cholesterol 15 mg/dL 6 - 40 mg/dL [facility] TSHon 10-18-2021 TSH 1.97 uIU/mL Normal 0.270-4.200 [facility] Comment on above: Performed By: #### L 304.0140, L100.0040, L100.0005 #### [facility] [address] [place] [address] TSH Qnon 10-18-2021 TSH 1.97 uIU/mL 0.270 - 4.200 uIU/mL [facility] RADIOLOGYon 06-23-2021 RADIOLOGY [place] [address] Patient: WILFRIDO DURAN I. Phone#: : [phone] Age: 50 Gender: F Pt. Type: Out Account: [id number] Location: Ordering: CHELSEA HERNANDEZ Exam Date: 06/09/2021/9:13 Family Phys: PRATIK REECE Charge Code: 890022 Physician: Daniels Order #: DLP Dose#: PROCEDURE: BILATERAL SCREENING BREAST TOMOSYNTHESIS MAMMOGRAM WITH CAD COMPARISON: [facility], March 25, 2020. INDICATIONS: Screening. BREAST COMPOSITION: [...] Teran MD on 06/23/2021 at 10:58 Normal [facility] US ABD LTD SINGLE ORGANon US ABD LTD SINGLE ORGAN [place] [id number] Name: WILFRIDO DURAN Phys: NACHO GUERRERO : [birth year] Age: 50 Sex: F Acct: [id number] Loc: RAD US Exam Date: 01/20/21 Status: REG CLI Radiology No.: [id number] Unit Number: [id number] Exam # Type/Exam [id number] US / US ABD LTD SINGLE ORGAN [...] 01/20/2021 10:38:11 AM EST Workstation ID : [id number] < > Reported By: SANTOS LOVING M.D. Signed In Fluency By: SANTOS LOVING M.D. << Signature on File>> Reported By: SANTOS LOVING M.D. Signed By: SANTOS LOVING M.D. Tests performed at: [address] [address] Normal [facility] CBCon 10-08-2020 BASO# 0.10 x10(3) Normal 0.00-0.10 [facility] Comment on above: Performed By: #### L 200.0010 #### [facility] - LABORATORY [address] [place] [address] 25922 Basophils/100 WBC (Bld) 1.0 % Normal 0.0-1.0 [facility] Comment on above: Performed By: #### L 200.0010 #### [facility] [address] [place] [address] 34359 EOS# 0.20 x10(3) Normal 0.00-0.54 [facility] Comment on above: Performed By: #### L 200.0010 #### [facility] [address] [place] [address] 73450 Eosinophils/100 WBC (Bld) 3.2 % Normal 0.5-4.9 [facility] Comment on above: Performed By: #### L 200.0010 #### [facility] [address] [place] [address] 29631 Erythrocyte distribution width (RBC) [Ratio] 12.7 % Normal 12.5-15.7 [facility] Comment on above: Performed By: #### L 200.0010 #### [facility] - LABORATORY [address] [place] [address] 06305 Hematocrit (Bld) [Volume fraction] 41.7 % Normal 36.0-48.0 [facility] Comment on above: Performed By: #### L 200.0010 #### [facility] [address] [place] [address] 01605 Hemoglobin (Bld) [Mass/Vol] 14.0 g/dL Normal 12.0-16.0 [facility] Comment on above: Performed By: #### L 200.0010 #### [facility] [address] [place] [address] 14664 LYMPH# 2.00 x10(3) Normal 1.00-3.50 [facility] Comment on above: Performed By: #### L 200.0010 #### [facility] [address] [place] [address] 97944 Lymphocytes/100 WBC (Bld) 37.0 % Normal 16.0-48.0 [facility] Comment on above: Performed By: #### L 200.0010 #### ML [facility] [address] [place] [address] 30040 MCH (RBC) [Entitic mass] 32.0 pg Normal 28.5-32.9 [facility] Comment on above: Performed By: #### L 200.0010 #### ML [facility] [address] [place] [address] 52730 MCHC (RBC) [Mass/Vol] 33.5 g/dL Normal 33.0-36.0 [facility] Comment on above: Performed By: #### L 200.0010 #### ML [facility] [address] [place] [address] 34071 MCV (RBC) [Entitic vol] 95.2 fL Normal 80.0-99.0 [facility] Comment on above: Performed By: #### L 200.0010 #### [facility] [address] [place] [address] 06116 MONO# 0.50 x10(3) Normal 0.30-0.80 [facility] Comment on above: Performed By: #### L 200.0010 #### [facility] [address] [place] [address] 06315 Monocytes/100 WBC (Bld) 8.3 % Normal 4.3-11.2 [facility] Comment on above: Performed By: #### L 200.0010 #### [facility] [address] [place] [address] 19834 NEUT# 2.80 x10(3) Normal 1.40-6.50 [facility] Comment on above: Performed By: #### L 200.0010 #### [facility] [address] [place] [address] 51319 Neutrophils/100 WBC (Bld) 50.5 % Normal 45.0-73.0 [facility] Comment on above: Performed By: #### L 200.0010 #### [facility] - LABORATORY [address] [place] [address] 77277 Platelet mean volume (Bld) [Entitic vol] 8.3 fL Normal 7.5-9.5 [facility] Comment on above: Performed By: #### L 200.0010 #### [facility] - LABORATORY [address] [place] [address] 60327 PLT 303 X10(3) Normal 150-450 [facility] Comment on above: Performed By: #### L 200.0010 #### [facility] - LABORATORY [address] [place] [address] 49581 RBC 4.38 x10(6) Normal 3.30-5.00 [facility] Comment on above: Performed By: #### L 200.0010 #### ML [facility] [address] [place] [address] 54872 WBC 5.4 x10(3) Normal 4.5-10.0 [facility] Comment on above: Performed By: #### L 200.0010 #### [facility] - LABORATORY [address] [place] [address] 00833 CMPon 10-08-2020 A:G RATIO 1.96 Normal 1.1-2.5 [facility] Comment on above: Performed By: #### L 100.0005, L304.0140, L100.0040 #### [facility] - LABORATORY [address] [place] [address] 67386 Albumin [Mass/Vol] 4.9 g/dL Normal 3.5-5.2 [facility] Comment on above: Performed By: #### L 100.0005, L304.0140, L100.0040 #### [facility] - LAB[facility]AT[facility] [address] [place] [address] 03807 ALK. PHOS 73 U/L Normal 35-105 [facility] Comment on above: Performed By: #### L 100.0005, L304.0140, L100.0040 #### [facility] - LAB[facility]ATORY [address] [place] [address] 17848 ALT [Catalytic activity/Vol] 30 U/L Normal 5-33 [facility] Comment on above: Performed By: #### L 100.0005, L304.0140, L100.0040 #### [facility] - [facility] [address] [place] [address] 59537 Anion gap [Moles/Vol] 15.3 mmol/L Normal 15-22 [facility] Comment on above: Performed By: #### L 100.0005, L304.0140, L100.0040 #### [facility] - [facility]AT[facility] [address] [place] [address] 02364 AST [Catalytic activity/Vol] 22 U/L Normal 5-32 [facility] Comment on above: Performed By: #### L 100.0005, L304.0140, L100.0040 #### [facility] - [facility] [address] [place] [address] 30295 Bilirubin [Mass/Vol] 0.4 mg/dL Normal 0.2-1.2 [facility] Comment on above: Performed By: #### L 100.0005, L304.0140, L100.0040 #### [facility] - [facility] [address] [place] [address] 99953 Calcium [Mass/Vol] 10.2 mg/dL High 8.6-10.0 [facility] Comment on above: Performed By: #### L 100.0005, L304.0140, L100.0040 #### [facility] [address] [place] [address] 53546 Chloride [Moles/Vol] 104 mmol/L Normal 98-107 [facility] Comment on above: Performed By: #### L 100.0005, L304.0140, L100.0040 #### [facility] - LAB[facility]ATORY [address] [place] [address] 25379 CO2 [Moles/Vol] 24 mmol/L Normal 22-29 [facility] Comment on above: Performed By: #### L 100.0005, L304.0140, L100.0040 #### [facility] - LABORATORY [address] [place] [address] 95963 Creatinine [Mass/Vol] 0.74 mg/dL Normal 0.50-0.90 [facility] Comment on above: Performed By: #### L 100.0005, L304.0140, L100.0040 #### [facility] [address] [place] [address] 53116 eGFR if AFR NERISSA > 60 ml/min/1.73m2 Normal U [facility] Comment on above: Result Comment: eGFR >= [...] By: #### L 100.0005, L304.0140, L100.0040 #### [facility] [address] [place] [address] 10570 eGFR nonAFR Nerissa > 60 ml/Min/1.73m2 Normal [facility] Comment on above: Performed By: #### L 100.0005, L304.0140, L100.0040 #### [facility] [address] [place] [address] 54516 Globulin (S) [Mass/Vol] 2.5 g/dL Normal 1.5-4.5 [facility] Comment on above: Performed By: #### L 100.0005, L304.0140, L100.0040 #### [facility] [address] [place] [address] 43997 Glucose [Mass/Vol] 104 mg/dL Normal 74-106 [facility] Comment on above: Performed By: #### L 100.0005, L304.0140, L100.0040 #### [facility] [address] [place] [address] 80483 Potassium [Moles/Vol] 5.3 mmol/L High 3.5-5.0 [facility] Comment on above: Performed By: #### L 100.0005, L304.0140, L100.0040 #### [facility] - LABORATORY [address] [place] [address] 91546 Protein [Mass/Vol] 7.4 g/dL Normal 6.4-8.3 [facility] Comment on above: Performed By: #### L 100.0005, L304.0140, L100.0040 #### [facility] - [facility]ATORY [address] [place] [address] 70097 Sodium [Moles/Vol] 138 mmol/L Normal 135-145 [facility] Comment on above: Performed By: #### L 100.0005, L304.0140, L100.0040 #### [facility] - LABORATORY [address] [place] [address] 47394 Urea nitrogen [Mass/Vol] 12 mg/dL Normal 6-20 [facility] Comment on above: Performed By: #### L 100.0005, L304.0140, L100.0040 #### [facility] - LAB[facility]ATORY [address] [place] [address] 97782 LIPID PANELon 10-08-2020 Cholesterol [Mass/Vol] 265 mg/dL High 130-200 [facility] Comment on above: Performed By: #### L 100.0005, L304.0140, L100.0040 #### [facility] - [facility] [address] [place] [address] 35818 Cholesterol in HDL [Mass/Vol] 73 mg/dL Normal [facility] Comment on above: Result Comment: Harmony onal [...] 100.0005, L304.0140, L100.0040 #### [facility] - [facility]AT[facility] [address] [place] [address] 81996 Cholesterol in LDL [Mass/Vol] 174 mg/dL Normal [facility] Comment on above: Result Comment: LDL: OPTIMAL FOR PEOPLE AT VERY HIGH RISK <70 OPTIMAL <100 NEAR OPTIMAL 100-129 BORDERLINE HIGH 130-159 HIGH 160-189 VERY HIGH >=190 Source: 2009 NCEP ATP III, ADA Guidelines Reviewed: September, Performed By: #### L 100.0005, L304.0140, L100.0040 #### [facility] - [facility] [address] [place] [address] 00045 Cholesterol in VLDL [Mass/Vol] 18 mg/dL Normal 6-40 [facility] Comment on above: Performed By: #### L 100.0005, L304.0140, L100.0040 #### [facility] - LAB[facility]ATORY [address] [place] [address] 32453 LDL/HDL RATIO 2.4 Normal [facility] Comment on above: Performed By: #### L 100.0005, L304.0140, L100.0040 #### [facility] - LAB[facility]ATORY [address] [place] [address] 31798 Triglyceride [Mass/Vol] 92 mg/dL Normal [facility] Comment on above: Result Comment: TRIG : DESIRABLE: <150 mg/dL Performed By: #### L 100.0005, L304.0140, L100.0040 #### [facility] - [facility]AT[facility] [address] [place] [address] 17700 TSHon 10-08-2020 TSH 2.16 uIU/mL Normal 0.27-4.20 [facility] Comment on above: Performed By: #### L 100.0005, L304.0140, L100.0040 #### [facility] [address] [place] [address] 33091 Vital Signs Date Time Vital Sign Value Performing Clinician Dwight sears 11-21-2022 08:51-0400 Body height 166.4 cm Cm Bailon DO Work Phone: [facility] 11-21-2022 08:51-0400 Body weight 91.63 kg Cm Nazzaro DO Work Phone: [facility] 11-21-2022 08:51-0400 Diastolic blood pressure 92 mm[Hg] Cm Quesadaaro DO Work Phone: [facility] 11-21-2022 08:51-0400 Heart rate 82 /min Cm Quesadaaro DO Work Phone: [facility] 11-21-2022 08:51-0400 SaO2% (BldA) [Mass fraction] 99 % Cm Quesadaaro DO Work Phone: [facility] 11-21-2022 08:51-0400 Systolic blood pressure 143 mm[Hg] Cm Quesadaaro DO Work Phone: [facility] Encounters Encounter Date Encounter Type Care Provider Facility Start: 03-23-2025 ambulatory [facility] Facility :[facility] Start: 02-13-2025 ambulatory AIMEE Jonesi ty:[id number] Start: 02-13-2025 End: 02-13-2025 Subsequent hospital visit by [facility] Comment on above: Encounter for screen ing mammogram for malignant neoplasm of breast [Z12.31] Start: 08-30-2024 End: 08-30-2024 ambulatory PRATIK REECE Facility:[id number] Start: 02-08-2024 End: 02-08-2024 Telephone encounter Aimee Zendejas Work Phone: [facility] Start: 01-19-2024 End: 01-19-2024 Subsequent hospital visit by physician [facility] MAMMOGRAPHY Comment on above: Encounter for screen ing mammogram for malignant neoplasm of breast [Z12.31] Start: 11-25-2022 ambulatory CM Inna GARRETTBRANDENKAILEE Facil ity:[facility] Start: 11-25-2022 End: 11-25-2022 Subsequent hospital visit by physician Provider [facility] HOSP [facility]OD Start: 11-21-2022 End: 11-21-2022 ambulatory PRATIK REECE Facility:[facility] Start: 11-21-2022 End: 11-21-2022 Patient encounter procedure Cm Bailon DO Work Phone: [facility] Comment on above: Encounter for gyneco logical examination (general) (routine) without abnormal findings (Primary Dx); Encounter for screening mammogram for malignant neoplasm of breast Start: 11-21-2022 End: 11-21-2022 Patient encounter status Cm Bailon DO Work Phone: [facility] Start: 10-27-2022 ambulatory NACHO Quintanilla lity:UNI Start: 10-27-2022 End: 10-27-2022 Subsequent hospital visit by physician Provider [facility] HOD Comment on above: Z00.00 Start: 10-18-2021 End: 10-18-2021 Subsequent hospital visit by physician Provider [facility] IF [facility] Comment on above: BLOOD WORK Start: 06-09-2021 End: 06-09-[address] [facility] Procedures Date Procedure Procedure Detail Performing Clinician Start: 08-30-2024 Lipid 1996 panel - S yanely or Plasma [facility] Start: 12-15-2023 Lipid 1996 panel - S yanely or Plasma [facility] Start: 11-25-2022 Screening digital br [place] [facility] bi Cm Bailon DO Work Phone: Start: 10-27-2022 CBC + DIFF Provider [facility] Start: 10-27-2022 Comprehensive metabo lic 2000 panel - Serum or Plasma Provider [facility] Start: 10-27-2022 Hemoglobin A1c/Hemoglobin.total in Blood Provider [facility] Start: 10-27-2022 LIPID PANEL BASIC Provi paul [facility] Start: 10-27-2022 T3 FREE BLD Provider C [facility] Start: 10-27-2022 T4 FREE/FREE THYROX Pro vider [facility] Start: 10-27-2022 TSH BLD Provider [facility] Start: 10-27-2022 VITAMIN D 25 HYDROXY Pr ovider [facility] Start: 10-27-2022 Lipid 1996 panel - S yanely or Plasma Provider [facility] Start: 10-18-2021 CBC + DIFF Pratik Reece Work Phone: Start: 10-18-2021 Comprehensive metabo lic 2000 panel - Serum or Plasma Pratik Reece Work Phone: Start: 10-18-2021 LIPID PANEL BASIC Austin Reece Work Phone: Start: 10-18-2021 TSH BLD Pratik Reece Work Phone: Start: 03-25-2020 Mammography Provider C [facility] Plan of Treatment Date Care Activity Detail Author Start: 08-30-2029 Lipid panel Lipid Screening [facility] Start: 12-14-2028 Lipid panel Lipid Screening [facility] Start: 10-28-2027 Lipid 1996 panel - Serum or Plasma Lipid Screening [facility] Start: 10-28-2027 LIPID SCREEN LIPID SCREEN [facility] Start: 08-31-2027 Diabetes Screening Diabetes Screenin g [facility] Start: 12-14-2026 Diabetes Screening Diabetes Screenin [facility] Start: 10-18-2026 LIPID SCREEN LIPID SCREEN [facility] Start: 10-27-2025 DIABETES SCREEN DIABETES SCREEN [facility] Start: 10-27-2025 Diabetes Screening Diabetes Screenin g [facility] Start: 02-16-2025 Influenza vaccination Influenza Vacc ine (#1) [facility] Start: 01-18-2025 Screening for malign ant neoplasm of breast Mammogram Screening [facility] Start: 10-18-2024 DIABETES SCREEN DIABETES SCREEN [facility] Start: 04-09-2024 End: 04-09-2024 Patient encounter procedure 04/09/2024 1:40 PM EDT Appointment [address] [address] R92.1 Mammographic calcification found on diagnostic imaging of breast [facility] Comment on above: R92.1 Mammographic c alcification found on diagnostic imaging of breast Start: 02-17-2024 Influenza vaccination Influenza Vacc ine (#1) [facility] Start: 11-26-[address] [facility] Start: 11-26-2023 Screening for malign ant neoplasm of breast Mammogram Screening [facility] Start: 02-16-2023 Covid-19 Vaccine ( season) Covid-19 Vaccine ( season) [facility] Start: 02-16-2023 Influenza vaccination C [facility] Start: 06-18-2022 DEPRESSION ASSESSMENT DEPRESSION ASS ESSMENT [facility] Start: 02-16-2022 Influenza vaccination INFLUENZ A (Season Ended) [facility] Start: 08-16-2021 HPV TESTING HPV TESTING [facility] Start: 08-16-2021 PAP TESTING PAP TESTING [facility] Start: 08-16-2021 Screening for malign ant neoplasm of cervix Cervical Cancer Screening [facility] Start: 03-25-2021 Mammography MAMMOGRAM [facility] Start: 2018 Pneumococcal Vaccine : 50+ (1 of 1 - PCV) Pneumococcal Vaccine: 50+ (1 of 1 - PCV) [facility] Start: 2018 SHINGRIX VACCINE (1 of 2) SHINGRIX VACCINE (1 of 2) [facility] Start: 2013 COLOGUARD (FIT-DNA) COLOGUARD (FIT-D NA) [facility] Start: 2013 Colonoscopy COLONOSCOPY [facility] Start: 2013 COLORECTAL CANCER SCREENING COLORECTAL CANCER SCREENING [facility] Start: [address] COLONOGRAPHY [facility] Start: 2013 FECAL OCCULT BLOOD FECAL OCCULT BLOO D [facility] Start: 2013 Screening for malign ant neoplasm of colon [facility] Start: 2013 SIGMOIDOSCOPY SIGMOIDOSCOPY [facility] Start: 09-05-1987 Hepatitis B Vaccine (1 of 3 - 19+ 3-dose series) Hepatitis B Vaccine (1 of 3 - 19+ 3-dose series) [facility] Start: 09-05-1987 Urine microalbumin profile [facility] Start: 1986 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 DISEASE VISIT ANNUAL PCP TEAM CHRONIC DISEASE VISIT [facility] Start: 1986 Anxiety Screening Anxiety Screening [facility] Start: 1986 BP CONTROLLED (<130/80) BP CONTROLLE D (<130/80) [facility] Start: 1986 Depression Screening Depression Scre ening [facility] Start: 1986 HEPATITIS C SCREENING HEPATITIS C [facility] Start: 1986 Hepatitis C screening Hepatitis C [facility] Start: 1986 HIV SCREENING HIV SCREENING [facility] Start: 1986 HIV screening HIV Screening [facility] Start: 1980 Adult depression screening assessment DEPRESSION SCREENING [facility] Start: 1973 COVID-19 VACCINE (1) COVID-19 VACCIN E (1) [facility] Start: 03-07-1969 COVID-19 VACCINE (#1) COVID-19 VACCI NE (#1) [facility] Start: 1968 HEPATITIS B (1 of 3 - 3-dose series) HEPATITIS B (1 of 3 - 3-dose series) [facility] Start: 1968 Hepatitis B Vaccine (1 of 3 - 3-dose series) Hepatitis B Vaccine (1 of 3 - 3-dose series) [facility] End: 12-21-2023 HENRI SCREENING HENRI SCREENING Radiology Routine Encounter for screening mammogram for malignant neoplasm of breast 1 Occurrences starting 11/21/2022 until 12/21/2023 [facility] Work Phone: Comment on above: 1 Occurrences starti ng 11/21/2022 until [facility] Immun[facility] Immunization Date Immunization Notes Care Provider Guanaco [facility]well 08-16-2016 influenza virus vacc ine, unspecified formulation Provider [facility] Payers Date Payer Category Payer Self-pay 2015 [employer] BLUE CARD PPO OOS [id number] 2015 Unknown [employer] BLUE CARD PPO OOS [id number] 2015-Present [phone] [address] [place] [address] PPO [id number] 2015 Unknown [employer] CARD PPO OOS [id number] 2015-Present [phone] [address] [place] [address] PPO [id number] 2015 Unknown [id number] 1961 Unknown [id number] Unknown [id number] Unknown [id number] Unknown [id number] Social History Date Type Detail Facility Start: 12-26-2010 Tobacco smoking stat [facility] Never smoked tobacco [facility] Start: 11-20-2017 End: 11-21-2022 Alcohol intake Current drinker of alcohol (finding) [facility] Start: 1970 Sex Assigned At Not on file [facility] Start: 12-26-2010 Tobacco use and exposure Smokeless tobacco non-user [facility] Work Phone: Start: 11-20-2017 End: 11-21-2022 History of Social function [facility] Start: 11-20-2017 End: 11-21-2022 Tobacco use panel [facility] Start: 05-19-2012 National Score (1-100), lower number is lower risk Not on file [facility] Functional Status Date Assessment Result Facility 04-29-2014 Are you deaf, or do you have serious difficulty hearing No 04/29/2014 9:47 AM Kathryn Washington MA No [facility] 04-29-2014 Are you blind, or do you have serious difficulty seeing, even when wearing glasses No 04/29/2014 9:47 AM Kathryn Washington MA No [facility] 04-29-2014 Do you have serious difficulty walking or climbing stairs No 04/29/2014 9:47 AM Kathryn Washington MA No [facility] 04-29-2014 Do you have difficul ty dressing or bathing No 04/29/2014 9:47 AM Kathryn Washington MA No [facility] 04-29-2014 Because of a physica l, mental, or emotional condition, do you have difficulty doing errands alone such as visiting a physician's office or shopping No 04/29/2014 9:47 AM Kathryn Washington MA No [facility] Mental Status Date Assessment Result Facility 04-29-2014 Because of a physica l, mental, or emotional condition, do you have serious difficulty concentrating, remembering, or making decisions No 04/29/2014 9:47 AM Kathryn Washington MA No [facility] History of Present illness Narrative 02-13-2025 Hollie [...] PATIENT PRESENTS WITH AN IMPLANTABLE OR ATTACHED SENIOR WIND ENERGY CONSULTANT: No RADIOLOGY DEPARTMENT: Mammography PERIPHERAL IV DATA: Not applicable SIGNED BY: RT Belgica(R) February 13, 2025 8:00 AM documented in this encounter [facility] Progress note 02-13-2025 Note Date & Type Note Facility 02-13-2025 Note HNO ID: [id number] Author: HOLLIE WASHINGTON RT(R) Service: ? Author [...] PATIENT PRESENTS WITH AN IMPLANTABLE OR ATTACHED SENIOR WIND ENERGY CONSULTANT: No RADIOLOGY DEPARTMENT: Mammography PERIPHERAL IV DATA: Not applicable SIGNED BY: RT Belgica(R) February 13, 2025 8:00 AM [facility] Telephone encounter Note 02-08-2024 Telephone Encounter - Amari Lowe RT(R) - 02/08/2024 10:08 AM EDT Note Date & Type Note Facility 02-08-2024 Telephone encount er Note Phoned Wilfrido to schedule additional imaging appointment. She was not available; a message was left asking her to return my call. I scheduled her into the first available appointment, which is 04.09.2024 at 1340. [facility] Note 02-08-2024 Telephone Encounter - Amari Lowe [...] 04.09.2024 at 1340. documented in this encounter [facility] History of Present illness Narrative 01-19-2024 Ana [...] PATIENT PRESENTS WITH AN IMPLANTABLE OR ATTACHED SENIOR WIND ENERGY CONSULTANT: No RADIOLOGY DEPARTMENT: Mammography PERIPHERAL IV DATA: Not applicable SIGNED BY: RT Benny(R) January 19, 2024 10:02 AM documented in this encounter [facility] Progress note 11-21-2022 Note Date & Type Note Facility 11-21-2022 Note HNO ID: [id number] Author: Cm Bailon, DO Service: ? 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 Hypercholesterolemia past medical history 1996 colp/cryo/[facility] PAST SURGICAL HISTORY Procedure Laterality Date PAST [...] external genitalia normal, normal Bartholin's glands, urethra, [place]'s glands, no vulvar lesions, no cervical lesions, [...] which included preparing to see the patient, [id number] patient care, completing clinical documentation, obtaining and/or reviewing separately obtained history, performing a medically appropriate examination, counseling and educating the patient/family/caregiver, and ordering medications, tests, or procedures. 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 Hypercholesterolemia past medical history 1996 colp/cryo/[facility]/[place] PAST SURGICAL HISTORY Procedure Laterality Date PAST [...] external genitalia normal, normal Bartholin's glands, urethra, [place]'s glands, no vulvar lesions, no cervical lesions, [...] which included preparing to see the patient, [id number] patient care, completing clinical documentation, obtaining and/or reviewing separately obtained history, performing a medically appropriate examination, counseling and educating the patient/family/caregiver, and ordering medications, tests, or procedures. documented in this encounter [facility] Evaluation note Note Date & Type Note Facility Evaluation note Diagnosis Encounter for gynecological examination (general) (routine) without abnormal findings- Primary Encounter for screening mammogram for malignant neoplasm of breast Other screening mammogram documented in this encounter [facility] Reason for referral (narrative) Diagnostic Procedure Only (Routine) - Pending Review Note Date & Type Note Facility Reason for referral (narrati ve) Specialty Diagnoses / Procedures Referred By Sabas nesbitt Referred To Contact [facility] Diagnoses Encounter for screening mammogram for malignant neoplasm of breast Procedures HENRI SCREENING SCREENING MAMMOGRAPHY BI 2-VIEW BREAST INC Cm Champion DO [address] [place] [address] [facility] [address] [place] [address] Referral ID Status Reason Start Date Expiration Date Visits Requested Visits Authorized [id number] Pending Review Auto-Generat ed Referral 11/21/2022 12/21/2023 1 1 [facility] Summary Purpose Family History No Family History [...] section and content) DATE CREATED AUTHOR 10/20/2020 [facility] DATE CREATED AUTHOR AUTHOR'S ORGANIZ ATION 06/24/2021 [facility] DATE CREATED AUTHOR AUTHOR'S ORGANIZ ATION 10/25/2021 [facility] DATE CREATED AUTHOR AUTHOR'S ORGANIZ ATION 11/26/2022 [facility] DATE CREATED AUTHOR AUTHOR'S ORGANIZ ATION 11/26/2022 [facility] DATE CREATED AUTHOR AUTHOR'S ORGANIZ ATION 02/15/2025 [facility] DATE CREATED AUTHOR AUTHOR'S ORGANIZ ATION 03/10/2025 [facility] Source Comments (unrecognize d section and content) In the event this informatio n is protected by the Federal Confidentiality of Alcohol and Drug Abuse Patient Records regulations: The Federal rules restrict any use of the information to criminally investigate or prosecute any alcohol or drug abuse patient.[facility] the event this information is protected by the Federal Confidentiality of Alcohol and Drug Abuse Patient Records regulations: The Federal rules restrict any use of the information to criminally investigate or prosecute any alcohol or drug abuse patient.[facility] the event this information is protected by the Federal Confidentiality of Alcohol and Drug Abuse Patient Records regulations: The Federal rules restrict any use of the information to criminally investigate or prosecute any alcohol or drug abuse patient.[facility] the event this information is protected by the Federal Confidentiality of Alcohol and Drug Abuse Patient Records regulations: The Federal rules restrict any use of the information to criminally investigate or prosecute any alcohol or drug abuse patient.[facility] the event this information is protected by the Federal Confidentiality of Alcohol and Drug Abuse Patient Records regulations: The Federal rules restrict any use of the information to criminally investigate or prosecute any alcohol or drug abuse patient.[facility] the event this information is protected by the Federal Confidentiality of Alcohol and Drug Abuse Patient Records regulations: The Federal rules restrict any use of the information to criminally investigate or prosecute any alcohol or drug abuse patient.[facility] the event this information is protected by the Federal Confidentiality of Alcohol and Drug Abuse Patient Records regulations: The Federal rules restrict any use of the information to criminally investigate or prosecute any alcohol or drug abuse patient.[facility] Care Teams (unrecognized sec tion and content) Vp Product Management Relationship Specialty Start Date End Date Pratik Reece [address] [place] [address] PCP - General Family Practice 11/16/11 Vp Product Management Relationship Specialty Start Date End Date Pratik Reece [address] [place] [address] PCP - General Family Medicine 11/16/11 Vp Product Management Relationship Specialty Start Date End Date Pratik Reece MD [address] [place] [facility] [place] [address] PCP - General Family Medicine 11/16/11 Vp Product Management Relationship Specialty Start Date End Date Pratik Reece MD [address] [place] [facility] [place] [address] PCP - General Family Medicine 11/16/11 Vp Product Management Relationship Specialty Start Date End Date Pratik Reece MD [address] [place] [facility] [place] [place] [place] [address] PCP - General Family Medicine 11/16/11 Vp Product Management Relationship Specialty Start Date End Date Pratik Reece MD [address] [place] [facility] [place] [place] [address] PCP - General Family Medicine 11/16/11 Reason for Visit (unrecogniz ed section and content) Reason Comments [facility] Exam FOR RECORDS PERTAINING TO PATIENTS WHO [...] BE BASED ON THE PRIMARY CLINICAL RECORDS. [employer] provides no warranty or guarantee of the accuracy or completeness of information in this document.
== END | disposition home or self-care (01) ==
LOC: OPBI 08:45
PROVIDERS: PCP Family Medicine; Referring Provider Nurse Practitioner Family; Visit Provider Nurse Practitioner Family
DX: R92.1 Mammographic calcification found on diagnostic imaging of breast (principal)
CPT/HCPCS: 77065